=== PATIENT | female | born 1935 | race African-American/Black ===

== ENCOUNTER 2016-10-06 13:31 | Observation (INO) | payer MEDICARE, MEDICAID ==
[~2016-10-06] VITALS: Ht 162.6 cm; Wt 93.8 kg
[~2016-10-06 13:31] MED LIST: ASPI1TAB69 PO; GABA300C5 PO; HYDR-3583 PO; HYDR25TA5 PO; LEVO75TA3 PO; LORA-361 PO; MECL-62 PO; OXYC1TAB63 PO; PROM1SUP9 RECTAL; SIMV40TA PO; VERA1TAB17 PO
[2016-10-06 13:32] VITALS: BP 197/90; PULSE 100; RESP 20; TEMP 97.5; O2SAT 95
--- NOTE | 2016-10-06 14:35 | PD ---
HPI Chief Complaint: GI Complaint Time Seen by Provider: 14:35 Travel History International Travel<30 days: No Contact w/Intl Traveler<30days: No Traveled to known affect area: No History of Present Illness HPI 81-year-old female with history of CAD, hypertension, GERD, diverticulitis, hernia repair, cholecystectomy, appendectomy, presents to emergency department today for evaluation of lukasz red diarrhea. Patient states it has been ongoing for the last 2 days. Patient has no history of colon cancer. Reports no significant pain. Has been nauseous without vomiting. No fever or chills. No chest pain or tightness. She has had mild shortness of breath. She has no other symptoms to report at this time. PFSH Past Medical History Hx Anticoagulant Therapy: Yes (ASA 81MG) Arthritis: Yes Asthma: Yes Blood Disorders: No Depression: Yes Heart Rhythm Problems: Yes (OCCASIONAL FAST HEART-RATE) Cancer: No Cardiac Catheterization: Yes Cardiovascular Problems: Yes High Cholesterol: Yes Chest Pain: Yes Diabetes: No Diminished Hearing: No Diverticulitis: Yes Endocrine: No Gastrointestinal Disorders: Yes GERD: Yes Genitourinary: No Headaches: Yes Hepatitis: No Hiatal Hernia: Yes (HX ) Hypertension: Yes Immune Disorder: No Musculoskeletal: Yes (OA) Neurologic: Yes (HAND TREMORS AT TIMES) Psychiatric: No Reproductive: No Respiratory: Yes (ASTHMA) Immunizations Current: No Thyroid Disease: Yes (LOW) Menopausal: Yes : 10 Past Surgical History Abdominal Surgery: Yes (HERNIA REPAIR X5, CHOLECYSTECTOMY) AICD: No Appendectomy: Yes Arteriovenous Shunt: No Cardiac Surgery: Yes (CARDIAC CATH) Cholecystectomy: Yes Ear Surgery: No Endocrine Surgery: No Eye Surgery: No Gynecologic Surgery: Yes (HYSTERECTOMY) Hysterectomy: Yes Insulin Pump: No Joint Replacement: No Oral Surgery: No Pacemaker: No Thoracic Surgery: No Other Surgery: Yes ("HERNIA REPAIR" AND FISTULA REPAIR 1968) Social History Alcohol Use: No Tobacco Use: No Substance Use: No Allergies-Medications (Allergen,Severity, Reaction): Coded Allergies: Contrast Media (Verified Allergy, Unknown, 10/06/16) STATES "FEELS HOT" Reported Meds & Prescriptions Reported Meds & Active Scripts Active Oxycodone-Acetaminophen 5-325 mg Tab 1 Tab PO Q4H PRN Reported Verapamil ER 24 HR (Verapamil HCl) 240 Mg Tab 240 Mg PO BID Simvastatin 40 Mg Tab 40 Mg PO HS Promethazine Supp (Promethazine HCl) 25 Mg Supp 25 Mg RECTAL DAILY PRN Meclizine (Meclizine HCl) 25 Mg Tab 25 Mg PO BID PRN Claritin (Loratadine) 10 Mg Tab 10 Mg PO DAILY Levothyroxine (Levothyroxine Sodium) 75 Mcg Tab 75 Mcg PO DAILY Hydrocodone-Acetaminophen 10-325 mg Tab 0.5-1 Tab PO Q4H PRN Hydrochlorothiazide 25 Mg Tab 25 Mg PO DAILY Gabapentin 300 Mg Cap 300 Mg PO TID Aspirin 81 Mg Tabdr 81 Mg PO DAILY Review of Systems Except as stated in HPI: all other systems reviewed are Neg Physical Exam Narrative GENERAL: Well-nourished elderly female patient, in no acute distress SKIN: Warm and dry. HEAD: Atraumatic. Normocephalic. EYES: Pupils equal and round. No scleral icterus. No injection or drainage. ENT: No nasal bleeding or discharge. Mucous membranes pink and moist. NECK: Trachea midline. No JVD. CARDIOVASCULAR: Regular rate and rhythm. No murmur appreciated. RESPIRATORY: No accessory muscle use. Diminished to auscultation. Breath sounds equal bilaterally. GASTROINTESTINAL: Abdomen soft, nondistended. Mild discomfort with palpation. Hepatic and splenic margins not palpable. MUSCULOSKELETAL: No obvious deformities. No clubbing. No cyanosis. No edema. NEUROLOGICAL: Awake and alert. No obvious cranial nerve deficits. Motor grossly within normal limits. Normal speech. PSYCHIATRIC: Appropriate mood and affect; insight and judgment normal. Data Data Last Documented VS Vital Signs Date Time Temp Pulse Resp B/P Pulse Ox O2 Delivery O2 Flow Rate FiO2 10/06/16 23:00 85 16 150/65 98 Room Air 10/06/16 13:32 97.5 Orders Complete Blood Count With Diff (10/06/16 14:34) Comprehensive Metabolic Panel (10/06/16 14:34) Prothrombin Time / Inr (Pt) (10/06/16 14:34) Act Partial Throm Time (Ptt) (10/06/16 14:34) Urinalysis - C+S If Indicated (10/06/16 14:34) Type And Screen (10/06/16 14:34) Electrocardiogram (10/06/16 ) Ct Abd/Pel W/O Iv Contrast (10/06/16 ) C Diff Toxin Pcr (10/06/16 21:10) Consult Vascular Access Team (10/06/16 ) Sodium Chlor 0.9% 1000 Ml Inj (Ns 1000 M (10/06/16 21:47) Peg (High)/E-Lyte Liq (Colyte Liq) (10/06/16 23:00) Pantoprazole Inj (Protonix Inj) (10/07/16 00:15) Pantoprazole Inj (Protonix Inj) (10/07/16 00:15) Admit Order (Ed Use Only) (10/06/16 23:06) Labs Laboratory Tests Test 10/06/16 10/06/16 14:25 15:00 White Blood Count 7.3 TH/MM3 Red Blood Count 3.33 MIL/MM3 Hemoglobin 9.2 GM/DL Hematocrit 28.7 % Mean Corpuscular Volume 86.1 FL Mean Corpuscular Hemoglobin 27.7 PG Mean Corpuscular Hemoglobin 32.2 % Concent Red Cell Distribution Width 17.6 % Platelet Count 527 TH/MM3 Mean Platelet Volume 7.2 FL Neutrophils (%) (Auto) 63.8 % Lymphocytes (%) (Auto) 27.9 % Monocytes (%) (Auto) 4.8 % Eosinophils (%) (Auto) 3.1 % Basophils (%) (Auto) 0.4 % Neutrophils # (Auto) 4.7 TH/MM3 Lymphocytes # (Auto) 2.0 TH/MM3 Monocytes # (Auto) 0.3 TH/MM3 Eosinophils # (Auto) 0.2 TH/MM3 Basophils # (Auto) 0.0 TH/MM3 CBC Comment DIFF FINAL Differential Comment Prothrombin Time 11.8 SEC Prothromb Time International 1.1 RATIO Ratio Activated Partial 24.6 SEC Thromboplast Time Sodium Level 143 MEQ/L Potassium Level 4.2 MEQ/L Chloride Level 106 MEQ/L Carbon Dioxide Level 31.4 MEQ/L Anion Gap 6 MEQ/L Blood Urea Nitrogen 24 MG/DL Creatinine 1.09 MG/DL Estimat Glomerular Filtration 58 ML/MIN Rate Random Glucose 89 MG/DL Calcium Level 9.1 MG/DL Total Bilirubin 0.3 MG/DL Aspartate Amino Transf 9 U/L (AST/SGOT) Alanine Aminotransferase 12 U/L (ALT/SGPT) Alkaline Phosphatase 146 U/L Total Protein 7.9 GM/DL Albumin 3.0 GM/DL Blood Type O POSITIVE Antibody Screen NEGATIVE Blood Bank Comment Urine Color YELLOW Urine Turbidity CLEAR Urine pH 5.5 Urine Specific [place] 1.019 Urine Protein TRACE mg/dL Urine Glucose (UA) NEG mg/dL Urine Ketones NEG mg/dL Urine Occult Blood NEG Urine Nitrite NEG Urine Bilirubin NEG Urine Urobilinogen LESS THAN 2.0 MG/DL Urine Leukocyte Esterase NEG Urine RBC 2 /hpf Urine WBC 1 /hpf Urine Squamous Epithelial 1 /hpf Cells Microscopic Urinalysis Comment CULT NOT INDICATED MDM Medical Decision Making Medical Screen Exam Complete: Yes Emergency Medical Condition: Yes Medical Record Reviewed: Yes Differential Diagnosis GI bleed versus hemorrhoids versus symptomatic anemia versus electrode abnormality Narrative Course 81-year-old female presents to the emergency department for evaluation. Workup was initiated in triage. Once a medical bed becomes available, patient will be transferred and care assumed by that provider. Condition: Stable Oriana Bhat Oct 06, 2016 14:35
[2016-10-06 15:04] LABS: AUTOMATED NEUTROPHIL # 4.7 TH/MM3 (1.8-7.7); BASOPHIL % 0.4 % (0.0-2.0); EOSINOPHIL # 0.2 TH/MM3 (0-0.4); EOSINOPHIL % 3.1 % (0.0-4.0); HEMATOCRIT 28.7 % (35.0-46.0); HEMO FLAGS DIFF FINAL; LYMPH % 27.9 % (9.0-44.0); MEAN CELL VOLUME 86.1 FL (80.0-100.0); MEAN CORPUSCULAR HEMOGLOBIN 27.7 PG (27.0-34.0); MEAN CORPUSCULAR HGB CONC 32.2 % (32.0-36.0); MONO % 4.8 % (0.0-8.0); NEUT % 63.8 % (16.0-70.0); PLATELET COUNT 527 TH/MM3 (150-450); RED BLOOD COUNT 3.33 MIL/MM3 (4.00-5.30); RED CELL DISTRIBUTION WIDTH 17.6 % (11.6-17.2); WHITE BLOOD COUNT 7.3 TH/MM3 (4.0-11.0)
[2016-10-06 15:09] LABS: APTT (PATIENT) 24.6 SEC (24.3-30.1); INTERNATIONAL NORMALIZED RATIO 1.1 RATIO; PROTHROMBIN TIME - PATIENT 11.8 SEC (9.8-11.6)
[2016-10-06 15:20] LABS: BLOOD, URINE NEG (NEG); GLUCOSE,URINE NEG (NEG); KETONE, URINE NEG (NEG); NITRITE,URINE NEG (NEG); PH, URINE 5.5 (5.0-8.5); SQUAMOUS EPITHELIAL CELL URINE 1 /hpf (0-5); URINE COLOR YELLOW (YELLW/STRAW)
[2016-10-06 15:21] LABS: ALT (GPT) 12 U/L (10-53); ANION GAP 6 MEQ/L (5-15); AST (GOT) 9 U/L (15-37); BICARBONATE 31.4 MEQ/L (21.0-32.0); BLOOD UREA NITROGEN 24 MG/DL (7-18); CHLORIDE 106 MEQ/L (98-107); GLOMERULAR FILTRATION RATE 58 ML/MIN (>89); POTASSIUM 4.2 MEQ/L (3.5-5.1); SODIUM (NA) 143 MEQ/L (136-145)
[2016-10-06 15:22] LABS: COMMENT (UR) CULT NOT INDICATED; CULTURE IF INDICATED CULT NOT INDICATED
[2016-10-06 15:23] LABS: ALKALINE PHOSPHATASE 146 U/L (45-117); TOTAL BILIRUBIN ADULT 0.3 MG/DL (0.2-1.0)
[2016-10-06] MEDS ORDERED: SODIUM CHLOR 0.9% 1000 ML INJ 1,000 ML IV SCH (21:47)
--- NOTE | 2016-10-06 22:11 | RADRPT ---
EXAM DATE/TIME: 10/06/2016 21:48 [facility] COMPARISON: No previous studies available for comparison. INDICATIONS : Rectal bleeding, abdominal pain, nausea and vomiting. ORAL CONTRAST: No oral contrast ingested. RADIATION DOSE: 16.77 CTDIvol (mGy) MEDICAL HISTORY : Cardiovascular disease. Hypercholesterolemia. Hypertension. SURGICAL HISTORY : Hysterectomy. Cholecystectomy.Mulriple hernia repairs. ENCOUNTER: Initial ACUITY: 1 day PAIN SCALE: 5/10 LOCATION: Bilateral lower quadrant TECHNIQUE: Volumetric scanning of the abdomen and pelvis was performed. Using automated exposure control and ad justment of the mA and/or kV according to patient size, radiation dose was kept as low as reasonably achievable to obtain optimal diagnostic quality images. FINDINGS: CT Abdomen: The liver, spleen, pancreas, kidneys, adrenals are unremarkable. There is no evidence for any appreciable pathological adenopathy, free fluid, or bowel obstruction. Chronic vascular calcifi cations are present involving the aorta, iliac arteries without any significant stenosis or aneurysma l dilatations for technique. There are degenerative changes and possible bulging discs in the lower l umbosacral spine not adequately characterized. CT pelvis: There is no evidence for mass, abscess formation, or any significant adenopathy within the pelvis. There are scattered diverticuli mainly in the sigmoid colon without definite signs of divert iculitis. There is an approximate 2.4 cm bone island in the right sacrum with degenerative arthritis of the right SI joint. There is anterior abdominal mesh with approximate 3.2 cm soft tissue density i n the subcutaneous tissues of the left lower anterolateral abdominal wall with inhomogeneous density extending down to the groin most likely chronic possibly scar. CONCLUSION: Inhomogeneous density in the subcutaneous tissues of the left abdominal wall adjacent to the surgical mesh probably area of scarring, however traumatic contusion is not excluded and gabrielu ld be correlated clinically. Jayden Fang MD on October 06, 2016 at 22:05 Board Certified Radiologist. This report was verified electronically.
--- NOTE | 2016-10-06 22:50 | PD ---
Physical Exam Date Seen by Provider: Oct 06, 2016 Time Seen by Provider: 22:37 Narrative 81-year-old female that presents to the ED for evaluation of rectal bleeding. Patient was primarily evaluated by Oriana PALMER please refer to her note. Patient states that a rectal exam was done prior. I perform a rectal exam with a female nurse present. Patient does appear to have a very old non-painful or bleeding external hemorrhoid on the 6:00 area. Rectal exam was done and it shows some blood. Hemoccult was positive. Data Data Last Documented VS Vital Signs Date Time Temp Pulse Resp B/P Pulse Ox O2 Delivery O2 Flow Rate FiO2 10/06/16 13:32 97.5 100 20 197/90 95 Room Air Orders Complete Blood Count With Diff (10/06/16 14:34) Comprehensive Metabolic Panel (10/06/16 14:34) Prothrombin Time / Inr (Pt) (10/06/16 14:34) Act Partial Throm Time (Ptt) (10/06/16 14:34) Urinalysis - C+S If Indicated (10/06/16 14:34) Type And Screen (10/06/16 14:34) Electrocardiogram (10/06/16 ) Ct Abd/Pel W/O Iv Contrast (10/06/16 ) C Diff Toxin Pcr (10/06/16 21:10) Consult Vascular Access Team (10/06/16 ) Sodium Chlor 0.9% 1000 Ml Inj (Ns 1000 M (10/06/16 21:47) Peg (High)/E-Lyte Liq (Colyte Liq) (10/06/16 23:00) Pantoprazole Inj (Protonix Inj) (10/07/16 00:15) Pantoprazole Inj (Protonix Inj) (10/07/16 00:15) Admit Order (Ed Use Only) (10/06/16 23:06) Labs Laboratory Tests Test 10/06/16 10/06/16 14:25 15:00 White Blood Count 7.3 TH/MM3 Red Blood Count 3.33 MIL/MM3 Hemoglobin 9.2 GM/DL Hematocrit 28.7 % Mean Corpuscular Volume 86.1 FL Mean Corpuscular Hemoglobin 27.7 PG Mean Corpuscular Hemoglobin 32.2 % Concent Red Cell Distribution Width 17.6 % Platelet Count 527 TH/MM3 Mean Platelet Volume 7.2 FL Neutrophils (%) (Auto) 63.8 % Lymphocytes (%) (Auto) 27.9 % Monocytes (%) (Auto) 4.8 % Eosinophils (%) (Auto) 3.1 % Basophils (%) (Auto) 0.4 % Neutrophils # (Auto) 4.7 TH/MM3 Lymphocytes # (Auto) 2.0 TH/MM3 Monocytes # (Auto) 0.3 TH/MM3 Eosinophils # (Auto) 0.2 TH/MM3 Basophils # (Auto) 0.0 TH/MM3 CBC Comment DIFF FINAL Differential Comment Prothrombin Time 11.8 SEC Prothromb Time International 1.1 RATIO Ratio Activated Partial 24.6 SEC Thromboplast Time Sodium Level 143 MEQ/L Potassium Level 4.2 MEQ/L Chloride Level 106 MEQ/L Carbon Dioxide Level 31.4 MEQ/L Anion Gap 6 MEQ/L Blood Urea Nitrogen 24 MG/DL Creatinine 1.09 MG/DL Estimat Glomerular Filtration 58 ML/MIN Rate Random Glucose 89 MG/DL Calcium Level 9.1 MG/DL Total Bilirubin 0.3 MG/DL Aspartate Amino Transf 9 U/L (AST/SGOT) Alanine Aminotransferase 12 U/L (ALT/SGPT) Alkaline Phosphatase 146 U/L Total Protein 7.9 GM/DL Albumin 3.0 GM/DL Blood Type O POSITIVE Antibody Screen NEGATIVE Blood Bank Comment Urine Color YELLOW Urine Turbidity CLEAR Urine pH 5.5 Urine Specific [place] 1.019 Urine Protein TRACE mg/dL Urine Glucose (UA) NEG mg/dL Urine Ketones NEG mg/dL Urine Occult Blood NEG Urine Nitrite NEG Urine Bilirubin NEG Urine Urobilinogen LESS THAN 2.0 MG/DL Urine Leukocyte Esterase NEG Urine RBC 2 /hpf Urine WBC 1 /hpf Urine Squamous Epithelial 1 /hpf Cells Microscopic Urinalysis Comment CULT NOT INDICATED [facility] Medical Record Reviewed: Yes Supervised Visit with KAMLA: No Interpretation(s) CBC & BMP Diagram 10/06/16 14:25 LFTs within normal limits. Urine negative. Coags negative Differential Diagnosis Rectal bleeding versus hemorrhoid versus active bleed versus diverticulitis Narrative Course 81-year-old female that presents to the ED for evaluation of rectal bleeding. Patient was properly examined and was found to have signs and symptoms consistent with appears to be rectal bleeding. Patient has a positive Hemoccult as well as lukasz blood noted on the rectal exam. Labs were essentially shown to have anemia and a positive Hemoccult. At this time I recommend imaging. Imaging did not show any sign of acute disease other than possible mass to the area of the hernia which appears to be likely scar tissue. At this time I do recommend admission. I spoke with Dr. Candelario who recommends starting patient on GoLYTELY and nothing by mouth after 4-5:00 am this morning for colonoscopy. Wants colonoscopy consents done. Dr. Larson agrees to admission. Diagnosis Primary Impression: GI bleed Qualified Code: K92.2 - Gastrointestinal hemorrhage, unspecified gastrointestinal hemorrhage type Admitting Information Admitting Physician Requests: Admit Condition: Stable Hai Whitley Oct 06, 2016 22:50
[2016-10-06 23:00] VITALS: BP 150/65; PULSE 85; RESP 16; O2SAT 98
[2016-10-06] MEDS ORDERED: PEG (High)/E-LYTE SOLN 4000 ML BTL PO ONE (23:00)
[2016-10-06] MEDS ORDERED: ACETAMINOPHEN/HYDROcodone 325 MG/10 MG TAB PO PRN (23:15)
[2016-10-06] MEDS ORDERED: MORPHINE SULFATE 8 MG/ML INJ IV PUSH PRN (23:30)
[2016-10-06] MEDS ORDERED: ENALAPRILAT 2.5 MG/2 ML VIAL IV PUSH PRN (23:30)
[2016-10-06] MEDS ORDERED: ONDANSETRON HCL 4 MG/2 ML VIAL IVP PRN (23:30)
[2016-10-06] MEDS ORDERED: SENNOSIDES 8.6 MG TAB PO PRN (23:30)
[2016-10-06] MEDS ORDERED: BISACODYL 10 MG SUPP PR PRN (23:30)
[2016-10-06] MEDS ORDERED: NALOXONE HCL 0.4 MG/ML AMP IV PRN (23:30)
[2016-10-06] MEDS ORDERED: ACETAMINOPHEN 325 MG TAB PO PRN (23:30)
[2016-10-06] MEDS ORDERED: SODIUM CHLORIDE 0.9% FLUSH 5 ML FLUSH FLUSH PRN (23:30)
[2016-10-06] MEDS ORDERED: cloNIDine HCL 0.1 MG TAB PO PRN (23:30)
[2016-10-06] MEDS ORDERED: PROCHLORPERAZINE 25 MG SUPP PR PRN (23:30)
[2016-10-06] MEDS ORDERED: PANTOPRAZOLE INJ 80 MG in SODIUM CHLORIDE 0.9% INJ 100 ML IV SCH (23:45)
[2016-10-07] MEDS ORDERED: PANTOPRAZOLE INJ 80 MG in SODIUM CHLORIDE 0.9% INJ 100 ML IV SCH (00:15)
[2016-10-07] MEDS ORDERED: PANTOPRAZOLE INJ 80 MG in SODIUM CHLORIDE 0.9% INJ 35 ML IV ONE (00:15)
[2016-10-07] MEDS: DEXT 5%-NACL 0.9% 1000 ML INJ 1,000 ML IV SCH ×2 (00:43→22:45)
[2016-10-07 02:00] VITALS: BP 145/77
[2016-10-07 03:00] VITALS: BP 168/79; PULSE 75; RESP 20; TEMP 97.5; O2SAT 100
[2016-10-07] MEDS ORDERED: MAGNESIUM CITRATE SOLN 300 ML BTL PO SCH (03:00)
[2016-10-07] MEDS: LEVOTHYROXINE SODIUM 75 MCG TAB PO SCH (04:14)
[2016-10-07] MEDS ORDERED: MAGNESIUM CITRATE SOLN 300 ML BTL PO ONE (05:00)
[2016-10-07 06:54] LABS: AUTOMATED NEUTROPHIL # 5.4 TH/MM3 (1.8-7.7); BASOPHIL % 0.4 % (0.0-2.0); EOSINOPHIL # 0.2 TH/MM3 (0-0.4); EOSINOPHIL % 2.8 % (0.0-4.0); HEMATOCRIT 26.2 % (35.0-46.0); HEMO FLAGS DIFF FINAL; LYMPH % 22.4 % (9.0-44.0); LYMPHOCYTE # 1.7 TH/MM3 (1.0-4.8); MEAN CELL VOLUME 86.6 FL (80.0-100.0); MEAN CORPUSCULAR HEMOGLOBIN 27.7 PG (27.0-34.0); MONO % 5.3 % (0.0-8.0); NEUT % 69.1 % (16.0-70.0); PLATELET COUNT 500 TH/MM3 (150-450); RED BLOOD COUNT 3.03 MIL/MM3 (4.00-5.30); RED CELL DISTRIBUTION WIDTH 17.6 % (11.6-17.2); WHITE BLOOD COUNT 7.8 TH/MM3 (4.0-11.0)
[2016-10-07 07:08] LABS: BICARBONATE 27.4 MEQ/L (21.0-32.0); POTASSIUM 3.5 MEQ/L (3.5-5.1)
[2016-10-07 08:00] VITALS: BP 156/85; PULSE 95; RESP 16; TEMP 98.2; O2SAT 98
[2016-10-07] MEDS: GABAPENTIN 300 MG CAP PO SCH ×3 (09:00→18:00)
--- NOTE | 2016-10-07 09:01 | PD.CONS ---
HPI History of Present Illness This is a 81 year old female with history of CAD, hypertension, GERD, diverticulitis, hernia repair, cholecystectomy, appendectomy, presents to emergency department today for evaluation of lukasz red diarrhea. Patient states Monday morning, she didn't feel very good and felt constipated, so she took miralax, on Monday, she felt cramps and thought the laxatives working, but she noticed diarrhea with gross blood and clots, she had few more bloody loose stools that day, then she had bloody stools on Monday and and she noticed increasing the amount of blood with every BM. She reports chronic nausea without vomiting. She has chronic GERD which is controlled with medication. No previous history of rectal bleeding. She is on Aspirin at home. States she had a f/u with PCP on Monday and told her to stop taking the pain medication due to constipation, she did that and took 2 Aleve that day. Of note , she had EGD/colonoscopy with dr. Valdovinos on (06/21/16)-----> diverticulosis, grade I hemorrhoids, external hemorrhoids, gastritis, esophagitis, bx revealed gastritis and esophagitis. She denies alcohol intake. CT showed Inhomogeneous density in the subcutaneous tissues of the left abdominal wall adjacent to the surgical mesh probably area of scarring, however traumatic contusion is not excluded and should be correlated clinically. hgb 9.2 yesterday, today is 8.4. Currently patient is drinking mag-citrate in preparation for colonoscopy today, and this is making her nauseous. (Maggie Mclaughlin) PFSH Past Medical History Asthma HTN GERD Diverticulitis Past Surgical History Hysterectomy Multiple hernia repair cholecystectomy cardiac cath EGD/colonoscopy (Maggie Mclaughlin) Coded Allergies: Contrast Media (Verified Allergy, Unknown, 10/06/16) STATES "FEELS HOT" Medications Current Medications Medications (Trade) Dose Ordered Sig/Saroj Route Start Time Stop Time Status Last Admin (Neurontin) 300 mg TID PO 10/07/16 09:00 (Hydrodiuril) 25 mg DAILY PO 10/07/16 09:00 ([place] 10-325 Mg) 1 tab Q4H PRN PO 10/06/16 23:15 (Synthroid) 75 mcg DAILY@06 PO 10/07/16 06:00 (Isoptin Sr) 240 mg BID PO 10/07/16 09:00 (NS Flush) 2 ml UNSCH PRN FLUSH 10/06/16 23:30 (NS Flush) 2 ml BID FLUSH 10/07/16 09:00 (Tylenol) 650 mg Q4H PRN PO 10/06/16 23:30 (Zofran Inj) 4 mg Q6H PRN IVP 10/06/16 23:30 10/07/16 05:07 (Compazine Supp) 25 mg Q12H PRN SD 10/06/16 23:30 (Dulcolax Supp) 10 mg DAILY PRN SD 10/06/16 23:30 (Senokot) 17.2 mg Q12H PRN PO 10/06/16 23:30 (Narcan Inj) 0.4 mg UNSCH PRN IV 10/06/16 23:30 Clonidine 0.1 mg 0.1 mg Q6H PRN PO 10/06/16 23:30 (D5W-NS 1000 ml Inj) 1,000 ml @ 42 mls/hr [id number] IV 10/06/16 23:30 10/07/16 00:43 (Vasotec Inj) 2.5 mg Q6H PRN IV PUSH 10/06/16 23:30 (Morphine Inj) 5 mg Q4H PRN IV PUSH 10/06/16 23:30 Pantoprazole Sodium 40 mg 40 mg Q12HR IV PUSH 10/07/16 09:00 (Protonix Inj/NS Inj) 100 ml @ 10 mls/hr Q10H IV 10/06/16 23:45 10/07/16 09:00 10/07/16 00:43 Family History No family history of colon cancer Social History No smoking No alcohol (Maggie Mclaughlin) Review of Systems Constitutional: COMPLAINS OF: Fatigue Endocrine: DENIES: Polyuria Eyes: DENIES: Double Vision Ears, nose, mouth, throat: DENIES: Hoarseness Respiratory: DENIES: Shortness of breath Cardiovascular: DENIES: Syncope Gastrointestinal: COMPLAINS OF: Abdominal pain, Bloody stools, Constipation, Diarrhea, Nausea, Anorexia, DENIES: Black stools, Vomiting, Difficulty Swallowing, Odynophagia, Swelling of Abdomen, Heartburn, Hematemesis Genitourinary: DENIES: Hematuria Musculoskeletal: DENIES: Back pain Integumentary: DENIES: Jaundice Hematologic/lymphatic: DENIES: Bruising Immunologic/allergic: DENIES: Eczema Neurologic: DENIES: Abnormal gait Psychiatric: DENIES: Anxiety (Maggie Mclaughlin ESTELA) GI Exam Vitals I&O Vital Signs Date Time Temp Pulse Resp B/P Pulse Ox O2 Delivery O2 Flow Rate FiO2 10/07/16 03:00 97.5 75 20 168/79 100 10/07/16 02:00 80 16 145/77 99 10/06/16 23:00 85 16 150/65 98 Room Air 10/06/16 13:32 97.5 100 20 197/90 95 Room Air I/O 10/06/16 10/06/16 10/06/16 10/07/16 10/07/16 10/07/16 07:00 15:00 23:00 07:00 15:00 23:00 Intake Total 0 ml Balance 0 ml Intake Oral 0 ml # Voids 2 # Bowel Movements 2 Imaging Last Impressions Abdomen/Pelvis CT 10/06/16 0000 Signed Impressions: Service Date/Time: October 21:48 - CONCLUSION: Inhomogeneous density in the subcutaneous tissues of the left abdominal wall adjacent to the surgical mesh probably area of scarring, however traumatic contusion is not excluded and should be correlated clinically. Jayden Fang MD Laboratory Test 10/06/16 10/06/16 10/07/16 14:25 15:00 06:20 White Blood Count 7.3 TH/MM3 7.8 TH/MM3 Red Blood Count 3.33 MIL/MM3 3.03 MIL/MM3 Hemoglobin 9.2 GM/DL 8.4 GM/DL Hematocrit 28.7 % 26.2 % Mean Corpuscular Volume 86.1 FL 86.6 FL Mean Corpuscular Hemoglobin 27.7 PG 27.7 PG Mean Corpuscular Hemoglobin 32.2 % 32.0 % Concent Red Cell Distribution Width 17.6 % 17.6 % Platelet Count 527 TH/MM3 500 TH/MM3 Mean Platelet Volume 7.2 FL 6.9 FL Neutrophils (%) (Auto) 63.8 % 69.1 % Lymphocytes (%) (Auto) 27.9 % 22.4 % Monocytes (%) (Auto) 4.8 % 5.3 % Eosinophils (%) (Auto) 3.1 % 2.8 % Basophils (%) (Auto) 0.4 % 0.4 % Neutrophils # (Auto) 4.7 TH/MM3 5.4 TH/MM3 Lymphocytes # (Auto) 2.0 TH/MM3 1.7 TH/MM3 Monocytes # (Auto) 0.3 TH/MM3 0.4 TH/MM3 Eosinophils # (Auto) 0.2 TH/MM3 0.2 TH/MM3 Basophils # (Auto) 0.0 TH/MM3 0.0 TH/MM3 CBC Comment DIFF FINAL DIFF FINAL Differential Comment Prothrombin Time 11.8 SEC Prothromb Time International 1.1 RATIO Ratio Activated Partial 24.6 SEC Thromboplast Time Sodium Level 143 MEQ/L 143 MEQ/L Potassium Level 4.2 MEQ/L 3.5 MEQ/L Chloride Level 106 MEQ/L 109 MEQ/L Carbon Dioxide Level 31.4 MEQ/L 27.4 MEQ/L Anion Gap 6 MEQ/L 7 MEQ/L Blood Urea Nitrogen 24 MG/DL 20 MG/DL Creatinine 1.09 MG/DL 1.10 MG/DL Estimat Glomerular Filtration 58 ML/MIN 58 ML/MIN Rate Random Glucose 89 MG/DL 100 MG/DL Calcium Level 9.1 MG/DL 8.8 MG/DL Total Bilirubin 0.3 MG/DL Aspartate Amino Transf 9 U/L (AST/SGOT) Alanine Aminotransferase 12 U/L (ALT/SGPT) Alkaline Phosphatase 146 U/L Total Protein 7.9 GM/DL Albumin 3.0 GM/DL Blood Type O POSITIVE Antibody Screen NEGATIVE Blood Bank Comment Urine Color YELLOW Urine Turbidity CLEAR Urine pH 5.5 Urine Specific [place] 1.019 Urine Protein TRACE mg/dL Urine Glucose (UA) NEG mg/dL Urine Ketones NEG mg/dL Urine Occult Blood NEG Urine Nitrite NEG Urine Bilirubin NEG Urine Urobilinogen LESS THAN 2.0 MG/DL Urine Leukocyte Esterase NEG Urine RBC 2 /hpf Urine WBC 1 /hpf Urine Squamous Epithelial 1 /hpf Cells Microscopic Urinalysis Comment CULT NOT INDICATED Physical Examination HEENT: normocephalic; atraumatic; no jaundice. NECK: Neck is supple, no JVD, no lymphadenopathy. CHEST: Chest is clear to auscultation and percussion. CARDIAC: Regular rate and rhythm with no murmur gallop or rubs. ABDOMEN: Soft, nondistended, nontender; no hepatosplenomegaly; bowel sounds are present in all four quadrants. EXTREMITIES: No clubbing, cyanosis, or edema. SKIN: Normal; no rash; no jaundice. 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 (Maggie Mclaughlin) Assessment and Plan Plan - Gross bloody stools/anemia- Patient states Monday morning, she didn't feel very good and felt constipated, so she took miralax, on Monday, she felt cramps and thought the laxatives working, but she noticed diarrhea with gross blood and clots, she had few more bloody loose stools that day, then she had bloody stools on Monday and and she noticed increasing the amount of blood with every BM. She reports chronic nausea without vomiting. No previous history of rectal bleeding. She is on Aspirin at home. States she had a f/u with PCP on Monday and told her to stop taking the pain medication due to constipation, she did that and took 2 Aleve that day. Of note, she had EGD/ colonoscopy with dr. Valdovinos on (06/21/16)-----> diverticulosis, grade I hemorrhoids, external hemorrhoids, gastritis, esophagitis, bx revealed gastritis and esophagitis. She denies alcohol intake. CT showed Inhomogeneous density in the subcutaneous tissues of the left abdominal wall adjacent to the surgical mesh probably area of scarring, however traumatic contusion is not excluded and should be correlated clinically. hgb 9.2 yesterday, today is 8.4. Currently patient is drinking mag-citrate in preparation for colonoscopy today, and this is making her nauseous. - Anemia- due to acute blood loss- hgb 9.2 yesterday, today is 8.4. - chronic GERD which is controlled with medication. - HTN, Asthma per attending Plan: - NPO - Colonoscopy today - She is finishing up Mag-citrate - Consents - Await stools studies results - Monitor hh - Transfuse as needed - PPI - Supportive care - Patient seen and examined by Dr. Malik and myself and this note is written on his behalf. (Maggie Mclaughlin) Physician Comments Patient seen and examined Agree with above Continue with current supportive care Monitor labs We will proceed with a colonoscopy next (Paddy Malik MD) Maggie Mclaughlin Oct 07, 2016 09:01 Paddy Malik MD Oct 07, 2016 12:30
--- NOTE | 2016-10-07 09:17 | HHI.HP ---
History of Present Illness Primary Care Physician Joe Larson MD Admission Diagnosis GI bleed Diagnoses: (1) Fatigue (2) GI bleed History of Present Illness 81 y AAF, NEW PT TO MY PRACTICE THIS WEEK. PT IN USUALY STATE OF HEALTH UNTIL BRBPR FOR SEVERAL DAYS. PT SON CONVINCED HER TO GO TO THE ER. PT W CONTINUAL BLEED. NPO NOW. TAKING MAG CITRATE. C/O GENERAL WEAKNESS AND BEING FEARFUL OF THE SITUATION. D/W RN. D/W ER PA. Review of Systems Constitutional: COMPLAINS OF: Fatigue Gastrointestinal: COMPLAINS OF: Bloody stools, Nausea Except as stated in HPI: all other systems reviewed are Neg Past Family Social History Allergies: Coded Allergies: Contrast Media (Verified Allergy, Unknown, 10/06/16) STATES "FEELS HOT" Past Medical History Past Medical History Hx Anticoagulant Therapy: Yes (ASA 81MG) Arthritis: Yes Asthma: Yes Blood Disorders: No Depression: Yes Heart Rhythm Problems: Yes (OCCASIONAL FAST HEART-RATE) Cancer: No Cardiac Catheterization: Yes Cardiovascular Problems: Yes High Cholesterol: Yes Chest Pain: Yes Diabetes: No Diminished Hearing: No Diverticulitis: Yes Endocrine: No Gastrointestinal Disorders: Yes GERD: Yes Genitourinary: No Headaches: Yes Hepatitis: No Hiatal Hernia: Yes (HX ) Hypertension: Yes Immune Disorder: No Musculoskeletal: Yes (OA) Neurologic: Yes (HAND TREMORS AT TIMES) Psychiatric: No Reproductive: No Respiratory: Yes (ASTHMA) Immunizations Current: No Thyroid Disease: Yes (LOW) Menopausal: Yes : 10 Past Surgical History Abdominal Surgery: Yes (HERNIA REPAIR X5, CHOLECYSTECTOMY) AICD: No Appendectomy: Yes Arteriovenous Shunt: No Cardiac Surgery: Yes (CARDIAC CATH) Cholecystectomy: Yes Ear Surgery: No Endocrine Surgery: No Eye Surgery: No Gynecologic Surgery: Yes (HYSTERECTOMY) Hysterectomy: Yes Insulin Pump: No Joint Replacement: No Oral Surgery: No Pacemaker: No Thoracic Surgery: No Other Surgery: Yes ("HERNIA REPAIR" AND FISTULA REPAIR 1968) Social History Alcohol Use: No Tobacco Use: No Substance Use: No Allergies-Medications Allergies-Medications (Allergen,Severity, Reaction): Coded Allergies: Contrast Media (Verified Allergy, Unknown, 10/06/16) STATES "FEELS HOT" Reported Meds & Prescriptions Reported Meds & Active Scripts Active Oxycodone-Acetaminophen 5-325 mg Tab 1 Tab PO Q4H PRN Reported Verapamil ER 24 HR (Verapamil HCl) 240 Mg Tab 240 Mg PO BID Simvastatin 40 Mg Tab 40 Mg PO HS Promethazine Supp (Promethazine HCl) 25 Mg Supp 25 Mg RECTAL DAILY PRN Meclizine (Meclizine HCl) 25 Mg Tab 25 Mg PO BID PRN Claritin (Loratadine) 10 Mg Tab 10 Mg PO DAILY Levothyroxine (Levothyroxine Sodium) 75 Mcg Tab 75 Mcg PO DAILY Hydrocodone-Acetaminophen 10-325 mg Tab 0.5-1 Tab PO Q4H PRN Hydrochlorothiazide 25 Mg Tab 25 Mg PO DAILY Gabapentin 300 Mg Cap 300 Mg PO TID Aspirin 81 Mg Tabdr 81 Mg PO DAILY Active Ordered Medications Current Medications Medications (Trade) Dose Ordered Sig/Saroj Route Start Time Stop Time Status Last Admin (Neurontin) 300 mg TID PO 10/07/16 09:00 (Hydrodiuril) 25 mg DAILY PO 10/07/16 09:00 ([place] 10-325 Mg) 1 tab Q4H PRN PO 10/06/16 23:15 (Synthroid) 75 mcg DAILY@06 PO 10/07/16 06:00 (Isoptin Sr) 240 mg BID PO 10/07/16 09:00 (NS Flush) 2 ml UNSCH PRN FLUSH 10/06/16 23:30 (NS Flush) 2 ml BID FLUSH 10/07/16 09:00 (Tylenol) 650 mg Q4H PRN PO 10/06/16 23:30 (Zofran Inj) 4 mg Q6H PRN IVP 10/06/16 23:30 10/07/16 05:07 (Compazine Supp) 25 mg Q12H PRN DE 10/06/16 23:30 (Dulcolax Supp) 10 mg DAILY PRN DE 10/06/16 23:30 (Senokot) 17.2 mg Q12H PRN PO 10/06/16 23:30 (Narcan Inj) 0.4 mg UNSCH PRN IV 10/06/16 23:30 Clonidine 0.1 mg 0.1 mg Q6H PRN PO 10/06/16 23:30 (D5W-NS 1000 ml Inj) 1,000 ml @ 42 mls/hr [id number] IV 10/06/16 23:30 10/07/16 00:43 (Vasotec Inj) 2.5 mg Q6H PRN IV PUSH 10/06/16 23:30 (Morphine Inj) 5 mg Q4H PRN IV PUSH 10/06/16 23:30 (Protonix Inj) 40 mg Q12HR IV PUSH 10/07/16 09:00 Physical Exam Vital Signs Vital Signs Date Time Temp Pulse Resp B/P Pulse Ox O2 Delivery O2 Flow Rate FiO2 10/07/16 03:00 97.5 75 20 168/79 100 10/07/16 02:00 80 16 145/77 99 10/06/16 23:00 85 16 150/65 98 Room Air 10/06/16 13:32 97.5 100 20 197/90 95 Room Air Physical Exam GENERAL: This is a well-nourished, well-developed patient, in no apparent distress. SKIN: No rashes, ecchymoses or lesions. Cool and dry. HEAD: Atraumatic. Normocephalic. No temporal or scalp tenderness. EYES: Pupils equal round and reactive. Extraocular motions intact. No scleral icterus. No injection or drainage. ENT: Nose without bleeding, purulent drainage or septal hematoma. Throat without erythema, tonsillar hypertrophy or exudate. Uvula midline. Airway patent. NECK: Trachea midline. No JVD or lymphadenopathy. Supple, nontender, no meningeal signs. CARDIOVASCULAR: Regular rate and rhythm without murmurs, gallops, or rubs. RESPIRATORY: Clear to auscultation. Breath sounds equal bilaterally. No wheezes , rales, or rhonchi. GASTROINTESTINAL: Abdomen soft, non-tender, nondistended. No hepato-splenomegaly , or palpable masses. No guarding. MUSCULOSKELETAL: Extremities without clubbing, cyanosis, or edema. No joint tenderness, effusion, or edema noted. No calf tenderness. Negative Homans sign bilaterally. NEUROLOGICAL: Awake and alert. Cranial nerves II through XII intact. Motor and sensory grossly within normal limits. Five out of 5 muscle strength in all muscle groups. Normal speech. Laboratory Laboratory Tests Test 10/06/16 10/06/16 10/07/16 14:25 15:00 06:20 White Blood Count 7.3 7.8 Red Blood Count 3.33 3.03 Hemoglobin 9.2 8.4 Hematocrit 28.7 26.2 Mean Corpuscular Volume 86.1 86.6 Mean Corpuscular Hemoglobin 27.7 27.7 Mean Corpuscular Hemoglobin 32.2 32.0 Concent Red Cell Distribution Width 17.6 17.6 Platelet Count 527 500 Mean Platelet Volume 7.2 6.9 Neutrophils (%) (Auto) 63.8 69.1 Lymphocytes (%) (Auto) 27.9 22.4 Monocytes (%) (Auto) 4.8 5.3 Eosinophils (%) (Auto) 3.1 2.8 Basophils (%) (Auto) 0.4 0.4 Neutrophils # (Auto) 4.7 5.4 Lymphocytes # (Auto) 2.0 1.7 Monocytes # (Auto) 0.3 0.4 Eosinophils # (Auto) 0.2 0.2 Basophils # (Auto) 0.0 0.0 CBC Comment DIFF FINAL DIFF FINAL Differential Comment Prothrombin Time 11.8 Prothromb Time International 1.1 Ratio Activated Partial 24.6 Thromboplast Time Sodium Level 143 143 Potassium Level 4.2 3.5 Chloride Level 106 109 Carbon Dioxide Level 31.4 27.4 Anion Gap 6 7 Blood Urea Nitrogen 24 20 Creatinine 1.09 1.10 Estimat Glomerular Filtration 58 58 Rate Random Glucose 89 100 Calcium Level 9.1 8.8 Total Bilirubin 0.3 Aspartate Amino Transf 9 (AST/SGOT) Alanine Aminotransferase 12 (ALT/SGPT) Alkaline Phosphatase 146 Total Protein 7.9 Albumin 3.0 Blood Type O POSITIVE Antibody Screen NEGATIVE Blood Bank Comment Urine Color YELLOW Urine Turbidity CLEAR Urine pH 5.5 Urine Specific [place] 1.019 Urine Protein TRACE Urine Glucose (UA) NEG Urine Ketones NEG Urine Occult Blood NEG Urine Nitrite NEG Urine Bilirubin NEG Urine Urobilinogen LESS THAN 2.0 Urine Leukocyte Esterase NEG Urine RBC 2 Urine WBC 1 Urine Squamous Epithelial 1 Cells Microscopic Urinalysis Comment CULT NOT INDICATED Result Diagram: 10/07/16 0620 10/07/16 0620 Assessment and Plan Assessment and Plan GIB BLOOD LOSS ANEMIA GABRIELLE DEHYDRATION ELEVATED LFT'S HTN CAD ASTHMA HYPOTHYROID PLAN: IV PROTONIX NPO SCOPE TODAY NO NSAIDS OBS AM LABS Problem Qualifiers (1) GI bleed: Qualified Code: K92.2 - Gastrointestinal hemorrhage, unspecified gastrointestinal hemorrhage type Joe Larson MD Oct 07, 2016 09:17
[2016-10-07] MEDS: VERAPAMIL HCL 240 MG SUSTAINED RELEASE TAB PO SCH ×2 (09:26→20:48)
[2016-10-07] MEDS: PANTOPRAZOLE SODIUM 40 MG VIAL IV PUSH SCH ×2 (09:26→20:48)
[2016-10-07] MEDS: HYDROCHLOROTHIAZIDE 25 MG TAB PO SCH (09:26)
[2016-10-07] MEDS: SODIUM CHLORIDE 0.9% FLUSH 5 ML FLUSH FLUSH SCH ×2 (09:45→20:48)
[2016-10-07] MEDS ORDERED: SOD PHOSPHATE/SOD BIPHOSPHATE (ADULT) ENEMA 133ML PR ONE (10:45)
[2016-10-07 12:00] VITALS: BP 149/83; PULSE 96; RESP 16; TEMP 96.6; O2SAT 97
[2016-10-07] MEDS ORDERED: PROPOFOL 200 MG/20 ML AMP IV ONE (12:14)
--- NOTE | 2016-10-07 12:33 | PD.PROCEDR ---
GI Procedure REFERRING PHYSICIAN Dr. Larson PROCEDURE PERFORMED Colonoscopy INDICATION FOR PROCEDURE Rectal bleeding PROCEDURE: The procedure, risks and benefits were discussed with Ms. Levine and informed consent was obtained. Anesthesia sedated her with Diprivan. She was placed in the left lateral decubitus position. Colonoscopy: The Pentax videoscope was introduced through the rectum and advanced to cecum where the ileocecal valve and appendiceal orifice were identified. Retroflexion was performed in the rectum. Colonic prep was good FINDINGS: Colonic withdrawal time greater than 6 minutes As the scope slowly withdrawn colonic mucosa was carefully inspected the mucosa was unremarkable within normal limits the whole way through so as retroflexion and rectal examination the patient was noted to have moderately severe diverticulosis scattered throughout the colon but no blood or bleeding was seen ESTIMATED BLOOD LOSS: None SPECIMENS REMOVED: None COMPLICATIONS: None IMPRESSION: Diverticulosis throughout the colon Otherwise normal colonoscopy PLAN: Supportive care High fiber diet with fiber supplements and avoid nuts seeds and popcorn Advanced diet as tolerated we'll start with clears today Possible discharge tomorrow if all is stable and no further bleeding Paddy Malik MD Oct 07, 2016 12:33
[2016-10-07 16:00] VITALS: BP 139/80; PULSE 80; RESP 18; TEMP 97.8; O2SAT 98
[2016-10-07 21:06] VITALS: BP 135/68; PULSE 67; RESP 16; TEMP 96; O2SAT 100
--- NOTE | 2016-10-07 23:32 | EKG ---
Date Performed: 10/06/2016 Time Performed: 14:53:31 PTAGE: 81 years EKG: Sinus rhythm NORMAL ECG INTERPRETATION BASED ON A DEFAULT AGE OF 40 YEARS PREVIOUS TRACING : 07/21/2016 12.04 DOCTOR: Chidi Simpson Interpretating Date/Time 10/07/2016 23:29:42
[2016-10-08 01:01] VITALS: BP 119/58; PULSE 91; RESP 18; TEMP 97.5; O2SAT 95
[2016-10-08] MEDS: LEVOTHYROXINE SODIUM 75 MCG TAB PO SCH (05:10)
[2016-10-08 05:33] VITALS: BP 121/59; PULSE 76; RESP 18; TEMP 97.5; O2SAT 94
[2016-10-08 08:00] VITALS: BP 139/70; PULSE 81; RESP 16; TEMP 97.9; O2SAT 96
[2016-10-08 08:17] LABS: AUTOMATED NEUTROPHIL # 3.4 TH/MM3 (1.8-7.7); BASOPHIL % 0.3 % (0.0-2.0); EOSINOPHIL # 0.4 TH/MM3 (0-0.4); EOSINOPHIL % 7.1 % (0.0-4.0); HEMATOCRIT 24.4 % (35.0-46.0); HEMO FLAGS DIFF FINAL; LYMPH % 30.8 % (9.0-44.0); LYMPHOCYTE # 1.9 TH/MM3 (1.0-4.8); MEAN CORPUSCULAR HEMOGLOBIN 28.3 PG (27.0-34.0); MEAN CORPUSCULAR HGB CONC 32.9 % (32.0-36.0); MONO % 6.2 % (0.0-8.0); NEUT % 55.6 % (16.0-70.0); PLATELET COUNT 525 TH/MM3 (150-450); RED BLOOD COUNT 2.84 MIL/MM3 (4.00-5.30); RED CELL DISTRIBUTION WIDTH 17.5 % (11.6-17.2); WHITE BLOOD COUNT 6.2 TH/MM3 (4.0-11.0)
[2016-10-08 08:43] LABS: POTASSIUM 3.6 MEQ/L (3.5-5.1)
[2016-10-08] MEDS: PANTOPRAZOLE SODIUM 40 MG VIAL IV PUSH SCH ×2 (08:50→20:29)
[2016-10-08] MEDS: VERAPAMIL HCL 240 MG SUSTAINED RELEASE TAB PO SCH ×2 (08:50→20:28)
[2016-10-08] MEDS: GABAPENTIN 300 MG CAP PO SCH ×3 (08:50→17:32)
[2016-10-08] MEDS: HYDROCHLOROTHIAZIDE 25 MG TAB PO SCH (08:50)
[2016-10-08] MEDS: SODIUM CHLORIDE 0.9% FLUSH 5 ML FLUSH FLUSH SCH ×2 (09:00→20:29)
[2016-10-08 12:00] VITALS: BP 119/65; PULSE 82; RESP 16; TEMP 97.8; O2SAT 97
--- NOTE | 2016-10-08 15:36 | HHI.PR ---
Subjective Remarks The patient was sitting up in a chair. She said she had had a bowel movement today. She says she was about to try eating something. She had no acute complaints. Discussed with nursing. Objective Vitals Vital Signs Date Time Temp Pulse Resp B/P Pulse Ox O2 Delivery O2 Flow Rate FiO2 10/08/16 12:00 97.8 82 16 119/65 97 10/08/16 08:00 97.9 81 16 139/70 96 10/08/16 05:33 97.5 76 18 121/59 94 10/08/16 01:01 97.5 91 18 119/58 95 10/07/16 21:06 96.0 67 16 135/68 100 10/07/16 16:00 97.8 80 18 139/80 98 I/O 10/07/16 10/07/16 10/07/16 10/08/16 10/08/16 10/08/16 07:00 15:00 23:00 07:00 15:00 23:00 Intake Total 0 ml 175 ml Balance 0 ml 175 ml Intake Oral 0 ml IV Total 175 ml # Voids 2 4 2 # Bowel Movements 2 4 1 Result Diagram: 10/08/16 0653 10/08/16 0653 Imaging Last Impressions Abdomen/Pelvis CT 10/06/16 0000 Signed Impressions: Service Date/Time: October 21:48 - CONCLUSION: Inhomogeneous density in the subcutaneous tissues of the left abdominal wall adjacent to the surgical mesh probably area of scarring, however traumatic contusion is not excluded and should be correlated clinically. Jayden Fang MD Objective Remarks GENERAL: This is a well-nourished, well-developed patient, in no apparent distress. SKIN: No rashes, ecchymoses or lesions. Cool and dry. HEAD: Atraumatic. Normocephalic. No temporal or scalp tenderness. EYES: Pupils equal round and reactive. Extraocular motions intact. No scleral icterus. No injection or drainage. ENT: Nose without bleeding, purulent drainage or septal hematoma. Throat without erythema, tonsillar hypertrophy or exudate. Uvula midline. Airway patent. NECK: Trachea midline. No JVD or lymphadenopathy. Supple, nontender, no meningeal signs. CARDIOVASCULAR: Regular rate and rhythm without murmurs, gallops, or rubs. RESPIRATORY: Clear to auscultation. Breath sounds equal bilaterally. No wheezes , rales, or rhonchi. GASTROINTESTINAL: Abdomen soft, non-tender, nondistended. No hepato-splenomegaly , or palpable masses. No guarding. MUSCULOSKELETAL: Extremities without clubbing, cyanosis. Trace bilateral lower extremity edema. NEUROLOGICAL: Awake and alert. Cranial nerves II through XII intact. Motor and sensory grossly within normal limits. Five out of 5 muscle strength in all muscle groups. Normal speech. PSYCH: Mood and affect appropriate. Procedures Colonoscopy 10/07 Medications and IVs Current Medications Medications (Trade) Dose Ordered Sig/Saroj Route Start Time Stop Time Status Last Admin (Neurontin) 300 mg TID PO 10/07/16 09:00 10/08/16 08:50 (Hydrodiuril) 25 mg DAILY PO 10/07/16 09:00 10/08/16 08:50 (Alva 10-325 Mg) 1 tab Q4H PRN PO 10/06/16 23:15 (Synthroid) 75 mcg DAILY@06 PO 10/07/16 06:00 10/08/16 05:10 (Isoptin Sr) 240 mg BID PO 10/07/16 09:00 10/08/16 08:50 (NS Flush) 2 ml UNSCH PRN FLUSH 10/06/16 23:30 (NS Flush) 2 ml BID FLUSH 10/07/16 09:00 10/08/16 09:00 (Tylenol) 650 mg Q4H PRN PO 10/06/16 23:30 (Zofran Inj) 4 mg Q6H PRN IVP 10/06/16 23:30 10/07/16 05:07 (Compazine Supp) 25 mg Q12H PRN [place] 10/06/16 23:30 (Dulcolax Supp) 10 mg DAILY PRN [place] 10/06/16 23:30 (Senokot) 17.2 mg Q12H PRN PO 10/06/16 23:30 (Narcan Inj) 0.4 mg UNSCH PRN IV 10/06/16 23:30 Clonidine 0.1 mg 0.1 mg Q6H PRN PO 10/06/16 23:30 (D5W-NS 1000 ml Inj) 1,000 ml @ 42 mls/hr [id number] IV 10/06/16 23:30 10/07/16 22:45 (Vasotec Inj) 2.5 mg Q6H PRN IV PUSH 10/06/16 23:30 (Morphine Inj) 5 mg Q4H PRN IV PUSH 10/06/16 23:30 (Protonix Inj) 40 mg Q12HR IV PUSH 10/07/16 09:00 10/08/16 08:50 A/P Assessment and Plan GIB The pt had a colonoscopy which showed diverticulosis throughout the colon. The pt's hemoglobin is slightly lower 10/08. - follow CBC BID. - PPI. - follow up with GI. - ADAT. - IVFs. GABRIELLE Prerenal from GIB. Improved with fluids. - IVFs. - avoid nephrotoxic agents. HTN Currently well controlled. - continue home meds. - Vasotec as needed. PPx: SCDs. Discharge Planning Awaiting clinical improvement, GI clearance. Gen Quiroz DO Oct 08, 2016 15:36
[2016-10-08 16:00] VITALS: BP 104/65; PULSE 80; RESP 16; TEMP 96.8; O2SAT 95
--- NOTE | 2016-10-08 18:42 | HHI.GIFU ---
Subjective Remarks Up in chair. Tolerating clear liquids. No n/v. No abdominal pain. No further bleeding- has not had a bowel movement today. (Stephanie Art) Objective Vitals I&O Vital Signs Date Time Temp Pulse Resp B/P Pulse Ox O2 Delivery O2 Flow Rate FiO2 10/08/16 12:00 97.8 82 16 119/65 97 10/08/16 08:00 97.9 81 16 139/70 96 10/08/16 05:33 97.5 76 18 121/59 94 10/08/16 01:01 97.5 91 18 119/58 95 10/07/16 21:06 96.0 67 16 135/68 100 I/O 10/07/16 10/07/16 10/07/16 10/08/16 10/08/16 10/08/16 07:00 15:00 23:00 07:00 15:00 23:00 Intake Total 0 ml 175 ml Balance 0 ml 175 ml Intake Oral 0 ml IV Total 175 ml # Voids 2 4 2 # Bowel Movements 2 4 1 Laboratory Laboratory Tests Test 10/08/16 06:53 White Blood Count 6.2 Red Blood Count 2.84 Hemoglobin 8.0 Hematocrit 24.4 Mean Corpuscular Volume 86.0 Mean Corpuscular Hemoglobin 28.3 Mean Corpuscular Hemoglobin 32.9 Concent Red Cell Distribution Width 17.5 Platelet Count 525 Mean Platelet Volume 7.1 Neutrophils (%) (Auto) 55.6 Lymphocytes (%) (Auto) 30.8 Monocytes (%) (Auto) 6.2 Eosinophils (%) (Auto) 7.1 Basophils (%) (Auto) 0.3 Neutrophils # (Auto) 3.4 Lymphocytes # (Auto) 1.9 Monocytes # (Auto) 0.4 Eosinophils # (Auto) 0.4 Basophils # (Auto) 0.0 CBC Comment DIFF FINAL Differential Comment Sodium Level 144 Potassium Level 3.6 Chloride Level 104 Carbon Dioxide Level 33.0 Anion Gap 7 Blood Urea Nitrogen 13 Creatinine 1.14 Estimat Glomerular Filtration 55 Rate Random Glucose 82 Calcium Level 8.8 Imaging Last Impressions Abdomen/Pelvis CT 10/06/16 0000 Signed Impressions: Service Date/Time: October 21:48 - CONCLUSION: Inhomogeneous density in the subcutaneous tissues of the left abdominal wall adjacent to the surgical mesh probably area of scarring, however traumatic contusion is not excluded and should be correlated clinically. Jayden Fang MD Physical Exam HEENT: Normocephalic; atraumatic; no jaundice. CHEST: Chest is clear to auscultation and percussion. CARDIAC: Regular rate and rhythm with no murmur gallop or rubs. ABDOMEN: Soft, nondistended, nontender; no hepatosplenomegaly; bowel sounds are present in all four quadrants. EXTREMITIES: No clubbing, cyanosis, or edema. SKIN: Normal; no rash; no jaundice. BRUSH FINISHER: No focal deficits; alert and oriented times three. (Stephanie Art) Assessment and Plan Plan ASSESSMENT: - GIB with bloody stools. EGD/Colonoscopy (06/21/16)-----> diverticulosis, grade I hemorrhoids, external hemorrhoids, gastritis, esophagitis, bx revealed gastritis and esophagitis. She denies alcohol intake. Abdomen/Pelvis CT (10/06/16)---> Inhomogeneous density in the subcutaneous tissues of the left abdominal wall adjacent to the surgical mesh probably area of scarring, however traumatic contusion is not excluded and should be correlated clinically. S/P EGD (10/07/16)---> Diverticulosis throughout the colon , otherwise normal colonoscopy. Has not had any further bleeding. Tolerating clear liquids and denies any n/v/pain. HH 8.0/24.4. - Anemia, acute blood loss. 8.0/24.4. - HTN, Asthma per attending Plan: - Heart healthy diet- High fiber diet - CBC in am - If no further bleeding and HH stable in am, okay to d/c home in am - FU ZOILA 2 weeks - Patient seen and examined by Dr. Malik and myself and this note is written on his behalf. (Stephanie Art) Physician Comments Patient seen and examined Agree with above Continue with current supportive care Monitor labs Follow-up with GI post discharge We will sign off (Paddy Malik MD) Stephanie Art Oct 08, 2016 18:41 Paddy Malik MD Oct 08, 2016 20:59
[2016-10-08 19:24] LABS: HEMATOCRIT 24.7 % (35.0-46.0); MEAN CELL VOLUME 87.4 FL (80.0-100.0); MEAN CORPUSCULAR HEMOGLOBIN 28.9 PG (27.0-34.0); MEAN CORPUSCULAR HGB CONC 33.1 % (32.0-36.0); PLATELET COUNT 521 TH/MM3 (150-450); RED BLOOD COUNT 2.82 MIL/MM3 (4.00-5.30); RED CELL DISTRIBUTION WIDTH 17.1 % (11.6-17.2); REVIEW FLAG FINAL; WHITE BLOOD COUNT 6.5 TH/MM3 (4.0-11.0)
[2016-10-08] MEDS: DEXT 5%-NACL 0.9% 1000 ML INJ 1,000 ML IV SCH (20:32)
[2016-10-08 20:44] VITALS: BP 118/72; PULSE 77; RESP 16; TEMP 96.9; O2SAT 97
[2016-10-09 00:31] VITALS: BP 103/49; PULSE 82; RESP 18; TEMP 97; O2SAT 98
[2016-10-09 04:40] VITALS: BP 108/54; PULSE 66; RESP 18; TEMP 97.3; O2SAT 95
[2016-10-09] MEDS: LEVOTHYROXINE SODIUM 75 MCG TAB PO SCH (06:25)
[2016-10-09 08:00] VITALS: BP 117/75; PULSE 83; RESP 16; TEMP 97; O2SAT 95
--- NOTE | 2016-10-09 09:06 | HHI.FF ---
Face to Face Verification Diagnosis: (1) GI bleed (2) Fatigue Physical Therapy Order: Evaluate and Treat, Improve ambulation, Strength and gait training Home Health Nursing Order: Medical education Signs/symptoms of disease process Nursing assessment with vital signs I have seen patient Dorys Levine on 10/09/16. My clinical findings support the need for the requested home health care services because: Deconditioned w/ increased weakness I certify that my clinical findings support that this patient is homebound because: Unsteady gait/balance Gen Quiroz DO Oct 09, 2016 09:06
--- NOTE | 2016-10-09 09:07 | HHI.DCPOC ---
Discharge Care Plan Diagnosis: (1) GI bleed (2) Fatigue Your Health Problems Are: Bleeding Tendency Exercise Tolerance Goals to Promote Your Health * To prevent worsening of your condition and complications * To maintain your health at the optimal level Directions to Meet Your Goals Take your medications as prescribed Follow your dietary instruction Follow activity as directed Keep your appointments as scheduled Take your immunizations and boosters as scheduled If your symptoms worsen call your PCP, if no PCP go to Urgent Care Center or Emergency Room Smoking is Dangerous to Your Health. Avoid second hand smoke Call the 24-hour hour crisis hotline for domestic abuse at Gen Quiroz DO Oct 09, 2016 09:07
[2016-10-09 09:13] LABS: BICARBONATE 33.5 MEQ/L (21.0-32.0); MAGNESIUM 2.1 MG/DL (1.5-2.5); POTASSIUM 3.7 MEQ/L (3.5-5.1)
[2016-10-09 09:24] LABS: HEMATOCRIT 25.8 % (35.0-46.0); MEAN CELL VOLUME 86.2 FL (80.0-100.0); MEAN CORPUSCULAR HEMOGLOBIN 27.8 PG (27.0-34.0); MEAN CORPUSCULAR HGB CONC 32.2 % (32.0-36.0); PLATELET COUNT 456 TH/MM3 (150-450); RED BLOOD COUNT 2.99 MIL/MM3 (4.00-5.30); RED CELL DISTRIBUTION WIDTH 17.5 % (11.6-17.2); REVIEW FLAG FINAL; WHITE BLOOD COUNT 8.9 TH/MM3 (4.0-11.0)
[2016-10-09] MEDS ORDERED: HYDR12.56 PO (09:36)
[2016-10-09] MEDS ORDERED: PANT40TA3 PO (09:36)
--- NOTE | 2016-10-09 09:39 | HHI.DS ---
cc: Joe Larson MD Discharge Summary Admission Date Oct 06, 2016 at 23:08 Discharge Date: Oct 09, 2016 Admitting Diagnosis GI bleed (1) GI bleed ICD Code: K92.2 Diagnosis: Principal (2) Fatigue ICD Code: 780.79 (3) Renal insufficiency ICD Code: N28.9 Procedures Colonoscopy 10/07 Brief History - From Admission 81 y AAF, NEW PT TO MY PRACTICE THIS WEEK. PT IN USUALY STATE OF HEALTH UNTIL BRBPR FOR SEVERAL DAYS. PT SON CONVINCED HER TO GO TO THE ER. PT W CONTINUAL BLEED. NPO NOW. TAKING MAG CITRATE. C/O GENERAL WEAKNESS AND BEING FEARFUL OF THE SITUATION. D/W RN. D/W ER PA. CBC/BMP: 10/09/16 0727 10/09/16 0727 Significant Findings Laboratory Tests Test 10/06/16 10/07/16 10/08/16 10/08/16 14:25 06:20 06:53 19:02 Red Blood Count 3.33 MIL/MM3 3.03 MIL/MM3 2.84 MIL/MM3 2.82 MIL/MM3 (4.00-5.30) (4.00-5.30) (4.00-5.30) (4.00-5.30) Hemoglobin 9.2 GM/DL 8.4 GM/DL 8.0 GM/DL 8.2 GM/DL (11.6-15.3) (11.6-15.3) (11.6-15.3) (11.6-15.3) Hematocrit 28.7 % 26.2 % 24.4 % 24.7 % (35.0-46.0) (35.0-46.0) (35.0-46.0) (35.0-46.0) Red Cell Distribution Width 17.6 % 17.6 % 17.5 % (11.6-17.2) (11.6-17.2) (11.6-17.2) Platelet Count 527 TH/MM3 500 TH/MM3 525 TH/MM3 521 TH/MM3 (150-450) (150-450) (150-450) (150-450) Prothrombin Time 11.8 SEC (9.8-11.6) Blood Urea Nitrogen 24 MG/DL (7-18) 20 MG/DL (7-18) Creatinine 1.09 MG/DL 1.10 MG/DL 1.14 MG/DL (0.50-1.00) (0.50-1.00) (0.50-1.00) Estimat Glomerular Filtration 58 ML/MIN (>89) 58 ML/MIN (>89) 55 ML/MIN (>89) Rate Aspartate Amino Transf 9 U/L (15-37) (AST/SGOT) Alkaline Phosphatase 146 U/L (45-117) Albumin 3.0 GM/DL (3.4-5.0) Mean Platelet Volume 6.9 FL (7.0-11.0) Chloride Level 109 MEQ/L (98-107) Eosinophils (%) (Auto) 7.1 % (0.0-4.0) Carbon Dioxide Level 33.0 MEQ/L (21.0-32.0) Test 10/09/16 07:27 Red Blood Count 2.99 MIL/MM3 (4.00-5.30) Hemoglobin 8.3 GM/DL (11.6-15.3) Hematocrit 25.8 % (35.0-46.0) Red Cell Distribution Width 17.5 % (11.6-17.2) Platelet Count 456 TH/MM3 (150-450) Carbon Dioxide Level 33.5 MEQ/L (21.0-32.0) Creatinine 1.22 MG/DL (0.50-1.00) Estimat Glomerular Filtration 51 ML/MIN (>89) Rate Calcium Level 8.3 MG/DL (8.5-10.1) Imaging Last Impressions Abdomen/Pelvis CT 10/06/16 0000 Signed Impressions: Service Date/Time: October 21:48 - CONCLUSION: Inhomogeneous density in the subcutaneous tissues of the left abdominal wall adjacent to the surgical mesh probably area of scarring, however traumatic contusion is not excluded and should be correlated clinically. Jayden Fang MD PE at Discharge GENERAL: This is a well-nourished, well-developed patient, in no apparent distress. SKIN: No rashes, ecchymoses or lesions. Cool and dry. HEAD: Atraumatic. Normocephalic. No temporal or scalp tenderness. EYES: Pupils equal round and reactive. Extraocular motions intact. No scleral icterus. No injection or drainage. ENT: Nose without bleeding, purulent drainage or septal hematoma. Throat without erythema, tonsillar hypertrophy or exudate. Uvula midline. Airway patent. NECK: Trachea midline. No JVD or lymphadenopathy. Supple, nontender, no meningeal signs. CARDIOVASCULAR: Regular rate and rhythm without murmurs, gallops, or rubs. RESPIRATORY: Clear to auscultation. Breath sounds equal bilaterally. No wheezes , rales, or rhonchi. GASTROINTESTINAL: Abdomen soft, non-tender, nondistended. No hepato-splenomegaly , or palpable masses. No guarding. MUSCULOSKELETAL: Extremities without clubbing, cyanosis. Trace bilateral lower extremity edema. NEUROLOGICAL: Awake and alert. Cranial nerves II through XII intact. Motor and sensory grossly within normal limits. Five out of 5 muscle strength in all muscle groups. Normal speech. PSYCH: Mood and affect appropriate. Pt update on day of discharge The patient was feeling well. She stated that she had a bowel movement yesterday and there was no blood in it. She said she was feeling a little weak but was ambulating. Discussed with case management. The patient will be discharged with home health care. Hospital Course GIB CT of the abdomen showed: Inhomogeneous density in the subcutaneous tissues of the left abdominal wall adjacent to the surgical mesh, probably area of scarring. GI was consulted. The pt was started on IVFs and received an IV PPI. The pt had a colonoscopy which showed diverticulosis throughout the colon. The pt's hemoglobin has been stable following colonoscopy. No further bleeding has been reported. She will be discharged on a PPI. She will have a repeat CBC as an outpt. She will follow up with GI and her PCP. Her aspirin has been put on hold. GABRIELLE The pt received IVFs. Her HCTZ dose will be halved and she will follow up with her PCP. She will have a repeat BMP in 3-5 days. HTN Blood pressure was initially elevated but has since been well controlled. HCTZ will be halved as above. She will follow up with her PCP. Pt Condition on Discharge: Stable Discharge Disposition: Disch w/ Home Health Serv Discharge Time: > 30 minutes Discharge Instructions DIET: Follow Instructions for: Heart Healthy Diet Activities you can perform: Weight Bearing as Pebbles Follow up Referrals: Gastroenterology - 2 Weeks @ [facility] PCP Follow-up - 1 Week New Orders: BASIC METABOLIC PROF - 3-5 Days CBC NO DIFF - 3-5 Days New Medications: Hydrochlorothiazide (Hydrochlorothiazide) 12.5 Mg Tab 12.5 MG PO DAILY Blood Pressure Management #30 Ref 0 TAB Pantoprazole (Pantoprazole) 40 Mg Tab 40 MG PO BID Reflux #60 Ref 0 TAB Continued Medications: Gabapentin (Gabapentin) 300 Mg Cap 300 MG PO TID #90 Ref 0 CAP Hydrocodone-Acetaminophen (Hydrocodone-Acetaminophen) 10-325 mg Tab 0.5-1 TAB PO Q4H PRN PAIN Ref 0 TAB Levothyroxine (Levothyroxine) 75 Mcg Tab 75 MCG PO DAILY Thyroid #30 Ref 0 TAB Loratadine (Claritin) 10 Mg Tab 10 MG PO DAILY Allergy Management Ref 0 TAB Meclizine (Meclizine) 25 Mg Tab 25 MG PO BID PRN VERTIGO Ref 0 TAB Oxycodone-Acetaminophen (Oxycodone-Acetaminophen) 5-325 mg Tab 1 TAB PO Q4H PRN pain #30 TAB Promethazine Supp (Promethazine Supp) 25 Mg Supp 25 MG RECTAL DAILY PRN NAUSEA OR VOMITING Ref 0 SUPP Simvastatin (Simvastatin) 40 Mg Tab 40 MG PO HS Cholesterol Management #30 Ref 0 TAB Verapamil ER 24 HR (Verapamil ER 24 HR) 240 Mg Tab 240 MG PO BID #30 Ref 0 TAB Discontinued Medications: Aspirin (Aspirin) 81 Mg Tabdr 81 MG PO DAILY TAB Hydrochlorothiazide (Hydrochlorothiazide) 25 Mg Tab 25 MG PO DAILY #30 Ref 0 TAB Gen Quiroz DO Oct 09, 2016 09:39
== END 2016-10-09 15:25 | disposition home health service (06) ==
LOC: NEPE 13:31 → NEDA 23:08 → INTOOBSV 23:08 → N06B 10-07 03:32
PROVIDERS: ADMIT Family Medicine; ATTEND Family Medicine
DX: K57.30 Diverticulosis of large intestine without perforation or abscess without bleeding (principal); R53.83 Other fatigue; N28.9 Disorder of kidney and ureter, unspecified; K21.9 Gastro-esophageal reflux disease without esophagitis; I25.10 Atherosclerotic heart disease of native coronary artery without angina pectoris; I10 Essential (primary) hypertension; E78.00 Pure hypercholesterolemia, unspecified; Z79.01 Long term (current) use of anticoagulants
CPT/HCPCS: 00810; 45378; 74176; 80048; 80053; 81001; 83735; 85025; 85027; 85610; 85730; 86850; 86900; 86901; 93005; 97162; 99285; C9113; G0378; G8987; G8988; J2405; J7030; J7042

== ENCOUNTER 2018-03-09 18:24 | Observation (INO) ==
--- NOTE | 2018-03-09 19:28 | ED ---
HPI General Chief Complaint: Chest Pain Stated Complaint: Chest pain Time Seen by Provider: 03/09/18 19:05 Source: patient Limitations: no limitations History of Present Illness HPI narrative: Patient is an 82-year-old female, past medical history significant for hypertension, hyperlipidemia, thyroid disease, who presents with complaint of intermittent chest pain over the last several days that lasts several seconds when it comes on and radiates to her neck bilaterally. She states that sometimes the pain comes on with rest and sometimes with exertion. It is associated with dyspnea for several seconds. No leg swelling, nausea, vomiting, immobilization. No cough nor fevers. MD complaint: chest pain Complete Quality Measures for STEMI Alert Patients STEMI Alert: No Onset (ago): day(s) Duration: intermittent Onset: during rest and during exertion Pain location: substernal and left chest Severity: mild Quality: tightness and sharp Pain radiation: neck Relieving factors: nothing Associated symptoms: dyspnea Treatments prior to arrival chest pain: none Related Data Home Medications Medication Instructions Recorded Confirmed aspirin 81 mg PO DAILY 03/09/18 03/09/18 divalproex 250 mg PO BID 03/09/18 03/09/18 gabapentin 300 mg PO TID 03/09/18 03/09/18 hydrocodone-acetaminophen 1 tab PO Q4H PRN 03/09/18 03/09/18 levothyroxine [Synthroid] 100 mcg PO DAILY 03/09/18 03/09/18 loratadine 10 mg PO DAILY 03/09/18 03/09/18 metoclopramide HCl [Reglan] 5 mg PO TID 03/09/18 03/09/18 metoprolol succinate 25 mg PO DAILY 03/09/18 03/09/18 pantoprazole 40 mg PO BID 03/09/18 03/09/18 simvastatin 40 mg PO QPM 03/09/18 03/09/18 verapamil 240 mg PO Q12H 03/09/18 03/09/18 Allergies Allergy/AdvReac Type Severity Reaction Status Date / Time diatrizoate meglumine Allergy Unknown Unverified 03/21/17 18:41 gadobenic acid Allergy Unknown Unverified 03/21/17 18:41 gadodiamide Allergy Unknown Unverified 03/21/17 18:41 gadoteridol Allergy Unknown Unverified 03/21/17 18:41 iodixanol Allergy Unknown Unverified 03/21/17 18:41 iohexol Allergy Unknown Unverified 03/21/17 18:41 Review of Systems Except as stated in HPI: all other systems reviewed are negative Constitutional Denies fever(s) Eyes Denies blurry vision ENT Denies nasal congestion Cardiovascular Reports chest pain Respiratory Reports dyspnea Gastrointestinal Denies abdominal pain Musculoskeletal Denies back pain Integumentary/Breasts Denies rash Neurologic Denies numbness and Denies weakness Psychiatric Denies confusion [facility] Medical History Medical History Bilateral inguinal hernia (Acute) GERD (gastroesophageal reflux disease) (Acute) Hiatal hernia (Acute) Hyperlipemia (Acute) Hypertension (Acute) Hypothyroid (Acute) Neuropathy (Acute) Seasonal allergies (Acute) Surgical History Surgical History History of repair of hiatal hernia (Acute) Hx of bilateral inguinal hernia repair (Acute) Social History Social History Smoking Status: Former smoker How Often Do You Have a Drink Containing Alcohol: Never Recent Travel in [facility] within the Last 8 Weeks: No Recent Out of Country Travel within the Last 8 Weeks: No Immunization History Tetanus Immunization: >5 Years Hx Influenza Vaccine This Season: No Exam Narrative Exam Narrative: GENERAL: Well-appearing, elderly female in no acute distress. SKIN: Focused skin assessment warm/dry. HEAD: Atraumatic. Normocephalic. EYES: Pupils equal and round. No scleral icterus. No injection or drainage. ENT: No nasal bleeding or discharge. Mucous membranes pink and moist. NECK: Trachea midline. No JVD. CARDIOVASCULAR: Regular rate and rhythm. No murmur appreciated. RESPIRATORY: No accessory muscle use. Clear to auscultation. Breath sounds equal bilaterally. Reproducible sharp pain on palpation of the chest wall. GASTROINTESTINAL: Abdomen soft, non-tender, nondistended. MUSCULOSKELETAL: No obvious deformities. No clubbing. No cyanosis. No edema. NEUROLOGICAL: Awake and alert. No obvious cranial nerve deficits. Motor grossly within normal limits. Normal speech. PSYCHIATRIC: Appropriate mood and affect; insight and judgment normal. Course Hospital Course: On arrival patient was placed on a monitor and IV was established. She was given aspirin and EKG was obtained which did not show an acute STEMI. Labs and chest x-ray were ordered. She is hypertensive on her arrival and states that she is due to take her twice per day antihypertensive. Reevaluation(s) Reevaluation #1: Patient continues to feel well and has not had any chest pain while in the emergency department. Time: 21:29 Initial Documented Vital Signs Temperature 98.5 F 03/09/18 18:40 Pulse Rate 79 03/09/18 18:40 Respiratory Rate 18 03/09/18 18:40 Blood Pressure 215/93 H 03/09/18 18:40 Pulse Oximetry 97 03/09/18 18:40 Last Documented Vital Signs Temperature 98.5 F 03/09/18 18:40 Pulse Rate 76 03/09/18 18:46 Respiratory Rate 18 03/09/18 18:40 Blood Pressure 215/93 H 03/09/18 18:40 Pulse Oximetry 97 03/09/18 18:40 Medical Decision Making MDM Narrative Medical decision making narrative: Patient is an 82-year-old female who presented with complaint of intermittent chest pain. EKG does not show an acute STEMI. She is low risk for pulmonary embolism. She has been hemodynamically stable while in the emergency department. She has been admitted to the chest pain center for serial troponins and a stress test. Differential Diagnosis Differential Diagnosis: Differential diagnosis includes but is not limited to myocardial infarction, unstable angina, pulmonary embolism, pneumonia, gastroesophageal reflux disease. Medical Records Medical records reviewed: Yes I reviewed the patient's medical records. Lab Data Lab results reviewed: Yes I reviewed the patient's lab results. Lab results narrative: Labs reveal slight worsening of chronic abnormal creatinine. Initial troponin unremarkable. Result diagrams: 03/09/18 20:00 03/09/18 19:27 Lab Results 03/09/18 03/09/18 03/09/18 Range/Units 19:27 19:27 20:00 WBC 7.1 (4.0-11.0) th/mm3 RBC 3.68 L (4.00-5.30) mil/mm3 Hgb 10.4 L (11.6-15.3) gm/dL Hct 32.3 L (35.0-46.0) % MCV 87.8 (80.0-100.0) fL MCH 28.4 (27.0-34.0) pg MCHC 32.3 (32.0-36.0) % RDW 18.3 H (11.6-17.2) % Plt Count 332 (150-450) th/mm3 MPV 8.0 (7.0-11.0) fL PT 11.1 (9.8-11.6) sec INR 1.1 Ratio APTT 23.6 L (24.3-30.1) sec Sodium 143 (136-145) meq/L Potassium 3.7 (3.5-5.1) meq/L Chloride 108 H (98-107) meq/L Carbon Dioxide 28.9 (21.0-32.0) meq/L Anion Gap 6 (5-15) meq/L BUN 20 H (7-18) mg/dL Creatinine 1.31 H (0.50-1.00) mg/dL Estimated GFR 47 L (>89) mL/min Random Glucose 97 (74-106) mg/dL Calcium 9.0 (8.5-10.1) mg/dL Troponin I Less than 0.02 L (0.02-0.05) ng/mL Imaging Data Attestation: I personally reviewed and interpreted this imaging study as follows : My impression: No acute cardiopulmonary findings. Radiologist's impression: Chest X-Ray 03/09/18 19:18 CONCLUSION: No acute findings. Tortuous aorta. ECG Data EKG Prior to Arrival: No Attestation: I personally reviewed and interpreted this ECG as follows: Discharge Plan Discharge Disposition Patient Disposition: 30 Still Patient Discharge Condition Condition: Stable Discharge Details Diagnosis: Chest pain, rule out acute myocardial infarction Physicians Team ED Provider: Stefanie Valdez Primary Care Provider: UNKNOWN, Attending Provider: Joe Haley Discharge Interventions Interventions: Vital Signs Last Done: 03/09/18 18:46 Status ED Status: Admitted Observation Patient
[2018-03-09] MEDS ORDERED: Labetalol HCl Inj 100 MG/20 ML Vial IV.PUSH ONE (19:29)
[2018-03-09 19:49] VITALS: RESP 18; O2SAT 97
[2018-03-09 19:51] LABS: Anion Gap 6 meq/L (5-15); Blood Urea Nitrogen 20 mg/dL (7-18); Carbon Dioxide 28.9 meq/L (21.0-32.0); Chloride 108 meq/L (98-107); Glomerular Filtration Rate 47 mL/min (>89); Glucose,Random 97 mg/dL (74-106); Potassium 3.7 meq/L (3.5-5.1); Sodium 143 meq/L (136-145)
[2018-03-09 19:54] LABS: Activated Partial Thrombo Time 23.6 sec (24.3-30.1); INR 1.1 Ratio; Prothrombin Time 11.1 sec (9.8-11.6)
[2018-03-09 20:43] LABS: Hematocrit 32.3 % (35.0-46.0); Hemoglobin 10.4 gm/dL (11.6-15.3); Mean Corpuscular HGB Conc 32.3 % (32.0-36.0); Mean Corpuscular Hemoglobin 28.4 pg (27.0-34.0); Mean Corpuscular Volume 87.8 fL (80.0-100.0); Platelet Count 332 th/mm3 (150-450); Red Blood Count 3.68 mil/mm3 (4.00-5.30); Red Cell Distribution Width 18.3 % (11.6-17.2); White Blood Count 7.1 th/mm3 (4.0-11.0)
--- NOTE | 2018-03-09 21:08 | XR ---
EXAM DATE: 03/09/2018 8:56 PM EDT AGE/SEX: 82 years / Female INDICATIONS: . Chest pain. CLINICAL DATA: This is the patient's initial encounter. Patient reports that signs and symptoms have been present for 1 day and indicates a pain score of 4/10. MEDICAL/SURGICAL HISTORY: . Cardiovascular disease. Hypercholesterolemia. Hypertension.SURGICAL HISTORY : Hysterectomy. Cholecystectomy.Multiple hernia repairs . COMPARISON: [facility] [place], CHEST SINGLE AP, 02/11/2011. . FINDINGS: PA and lateral views of the chest demonstrate the lungs to be symmetrically aerated without evidence of mass, infiltrate or effusion. The cardiomediastinal contours demonstrate tortuous aorta. Osseous s tructures are intact. CONCLUSION: No acute findings. Tortuous aorta. Electronically signed by: Epifanio Lewis MD 03/09/2018 9:06 PM EDT
[2018-03-10] MEDS ORDERED: Acetaminophen 500 MG Tablet PO PRN (07:22)
--- NOTE | 2018-03-10 10:08 | P.HPCA ---
History of Present Illness Primary Care Physician: PCP unknown Chief Complaint: Chest pain History of Present Illness: 82 year old female with history of hyperlipidemia, hypertension, and hypothyroidism presents to ER for further evaluation of nonexertional, chest pain. Onset "at least weeks ago, maybe 6 weeks." Location varies from left anterior chest, substernal, right-sided chest. Characterized as a quick onset sharp pain. Moderate in severity. Last 3 days discomfort increased in frequency and intensity. Intermittent discomfort described as 3-4 sharp pains followed by 10-15 minutes of tightness. Discomfort is reproducible with palpation. No radiation of pain. No associated symptoms of nausea, vomiting, or diaphoresis. Endorses chronic intermittent nausea follows with GI. No precipitating or relieving factors. No recent illness or injury. Follows with Dr. Costa. Reports full cardiac workup less than 2 years ago. also reports intermittent bilateral neck pain, varies in intensity and location. Discomfort alternates from left and right side neck. Characterized as quick, achy, sharp pain. No associated symptoms with neck pain, precipitating or relieving factors. States her daughter concerned and encouraged her to come the ER for further evaluation. Past cardiac testing Reports normal nuclear cardiac testing less than 2 years ago. History of either angioplasty or cardiac stent in late 80s early 90s. Total of 3 cardiac catheterizations, unable to recall most recent cardiac catheterization. Records indicate he had catheterization completed here at [facility] in 2002. Results below. 03/26/2003 Cardiac catheterization (Dr. Carrillo) Conclusions: 1. Mild narrowing of the ostium of the left main likely to represent spasm at the tip of the catheter with bridging and limit left anterior descending. 2. Codominant circumflex and right coronary artery system. 3. There was spasm at the tip of the catheter cannot cannulating the ostium at the right coronary artery, which was relieved with intracoronary nitroglycerin. 4. Normal left ventricular systolic function with mildly elevated left ventricular end-diastolic pressure. - Diagnosis (1) Atypical chest pain (2) H/O: hypertension (3) H/O gastroesophageal reflux (GERD) (4) H/O: hypothyroidism (5) Anemia Review of Systems All other systems reviewed negative except as stated in HPI PMFSH - History History Provided By: Patient - Medical History Medical History: Medical History (Last Reviewed 03/10/18 @ 10:30 by ESTELA Butler) Bilateral inguinal hernia GERD (gastroesophageal reflux disease) Hiatal hernia Hyperlipemia Hypertension Hypothyroid Neuropathy Seasonal allergies - Surgical History Surgical History: Surgical History (Last Reviewed 03/10/18 @ 10:30 by ESTELA Butler) History of repair of hiatal hernia Hx of bilateral inguinal hernia repair - Tobacco History Second Hand Smoke Exposure: No Tobacco Use In Past 30 Days: No Smoking Status: Former smoker (quit in late teens) - Alcohol History How Often Do You Have a Drink Containing Alcohol: Never - Substance Use History Substance History: No History of Abuse - Travel History History of Recent Travel: No Recent Travel in the [place] Within the Last 8 Weeks: No Recent Travel Out of the Country Within the Last 8 Weeks: No - Immunization History Tetanus Immunization: >5 Years Hx Influenza Vaccine This Season: No Medications and Allergies Active Medications: Active Medications Acetaminophen (Tylenol) 500 mg PO Q4H PRN PRN Reason: HEADACHE Aspirin (Aspirin) 325 mg PO DAILY [facility] Pantoprazole Sodium (Protonix) 40 mg PO BID [facility] Last Admin: 03/10/18 08:03 Dose: 40 mg Sodium Chloride (Ns Flush) 2 ml IV.FLUSH UNSCH PRN PRN Reason: FLUSH AFTER USING IV ACCESS Sodium Chloride (Ns Flush) 2 ml IV.FLUSH PRN PRN PRN Reason: FLUSH AFTER USING IV ACCESS Sodium Chloride (Ns Flush) 2 ml IV.FLUSH BID [facility] Last Admin: 03/10/18 08:03 Dose: 2 ml Allergies Allergy/AdvReac Type Severity Reaction Status Date / Time diatrizoate meglumine Allergy Unknown Unverified 03/21/17 18:41 gadobenic acid Allergy Unknown Unverified 03/21/17 18:41 gadodiamide Allergy Unknown Unverified 03/21/17 18:41 gadoteridol Allergy Unknown Unverified 03/21/17 18:41 iodixanol Allergy Unknown Unverified 03/21/17 18:41 iohexol Allergy Unknown Unverified 03/21/17 18:41 Home Medications Medication Instructions Recorded Confirmed Type aspirin 81 mg PO DAILY 03/09/18 03/09/18 History divalproex 250 mg PO BID 03/09/18 03/09/18 History gabapentin 300 mg PO TID 03/09/18 03/09/18 History hydrocodone-acetaminophen 1 tab PO Q4H PRN 03/09/18 03/09/18 History levothyroxine [Synthroid] 100 mcg PO DAILY 03/09/18 03/09/18 History loratadine 10 mg PO DAILY 03/09/18 03/09/18 History metoclopramide HCl [Reglan] 5 mg PO TID 03/09/18 03/09/18 History metoprolol succinate 25 mg PO DAILY 03/09/18 03/09/18 History pantoprazole 40 mg PO BID 03/09/18 03/09/18 History simvastatin 40 mg PO QPM 03/09/18 03/09/18 History verapamil 240 mg PO Q12H 03/09/18 03/09/18 History Exam Vital signs: Vital Signs 03/09/18 18:40 03/09/18 18:46 03/09/18 21:35 Temperature 98.5 F Pulse Rate 79 76 79 Respiratory Rate 18 18 Blood Pressure 215/93 H 177/79 H Pulse Oximetry 97 97 03/10/18 00:27 03/10/18 00:39 03/10/18 02:08 Temperature 97.8 F Pulse Rate 73 Respiratory Rate 18 16 Blood Pressure 188/81 H Pulse Oximetry 98 98 03/10/18 03:08 03/10/18 03:34 03/10/18 07:18 Temperature 97.8 F 97.9 F Pulse Rate 73 79 81 Respiratory Rate 18 16 Blood Pressure 168/94 H 190/79 H Pulse Oximetry 98 98 03/10/18 07:37 03/10/18 09:00 Temperature Pulse Rate 83 75 Respiratory Rate Blood Pressure Pulse Oximetry Intake & Output 03/09/18 03/10/18 03/10/18 18:59 06:59 18:59 Weight 92.079 kg 92.079 kg Other: Date of Last Bowel Movement 03/09/18 Weight On Admission 92.079 kg Narrative: GENERAL: Alert WN, WD, NAD, very pleasant, morbidly obese -[place] elderly female HEAD: NC, AT NECK: Supple, no masses, trachea midline CV: RRR, without murmur, rub, gallop. Chest wall pain easily reproduced with light palpation. RESP: Clear lungs throughout bilateral, no crackles, wheeze, rhonchi, symmetrical chest rise, nonlabored, able to speak in full sentences ABD: Soft, NT, ND, no masses, positive bowel tones EXT: Pulses +2x4, no dependent edema MS: Normal tone x4 extremities, nontender, no obvious deformities, full range of motion NEURO: CN II through CN XII grossly intact, motor strength 5/5, gait WNL PSYCH: A+O x3, pleasant affect, appropriate speech, mood, insight and judgment SKIN: Normal turgor, normal texture, no lesions, no rashes, dry Results 03/09/18 20:00 03/09/18 19:27 Cardiac Enzymes 03/09/18 03/09/18 03/10/18 Range/Units 19:27 22:45 03:44 Troponin I Less than 0.02 L Less than 0.02 L Less than 0.02 L (0.02-0.05) ng/mL Coagulation 03/09/18 Range/Units 19:27 PT 11.1 (9.8-11.6) sec APTT 23.6 L (24.3-30.1) sec CBC 03/09/18 Range/Units 20:00 WBC 7.1 (4.0-11.0) th/mm3 RBC 3.68 L (4.00-5.30) mil/mm3 Hgb 10.4 L (11.6-15.3) gm/dL Hct 32.3 L (35.0-46.0) % Plt Count 332 (150-450) th/mm3 Comprehensive Metabolic Panel 03/09/18 Range/Units 19:27 Sodium 143 (136-145) meq/L Potassium 3.7 (3.5-5.1) meq/L Chloride 108 H (98-107) meq/L Carbon Dioxide 28.9 (21.0-32.0) meq/L BUN 20 H (7-18) mg/dL Creatinine 1.31 H (0.50-1.00) mg/dL Calcium 9.0 (8.5-10.1) mg/dL Intake and Output 03/09/18 03/10/18 03/10/18 22:59 06:59 14:59 Other: Date of Last Bowel Movement 03/09/18 Weight 92.079 kg 92.079 kg Weight On Admission 92.079 kg EKG interpretations - EKG EKG results cardiology: sinus rhythm, normal axis, normal QRS, normal ST/T Caprini VTE Risk Assessment Caprini VTE Risk Assessment: Moderate/High Risk (score >= 2) Caprini Risk Assessment Model: Point Value = 1 Point Value = 2 Point Value = 3 Point Value = 5 Age 41-60 Minor surgery BMI > 25 kg/m2 Swollen legs Varicose veins or History of unexplained or recurrent spontaneous Oral contraceptives or hormone replacement Sepsis (< 1 month) Serious lung disease, including pneumonia (< 1 month) Abnormal pulmonary function Acute myocardial infarction Congestive heart failure (< 1 month) History of inflammatory bowel disease Medical patient at bed rest Age 61-74 Arthroscopic surgery Major open surgery (> 45 min) Laparoscopic surgery (> 45 min) Malignancy Confined to bed (> 72 hours) Immobilizing plaster cast Central venous access Age >= 75 History of VTE Family history of VTE Factor V Leiden Prothrombin [id number] Lupus anticoagulant Anticardiolipin antibodies Elevated serum homocysteine Heparin-induced thrombocytopenia Other congenital or acquired thrombophilia Stroke (< 1 month) Elective arthroplasty Hip, pelvis, or leg fracture Acute spinal cord injury (< 1 month) Prophylaxis Regimen: Total Risk Factor Score Risk Level Prophylaxis Regimen 0-1 Low Early ambulation 2 Moderate Order ONE of the following: *Sequential Compression Device (SCD) *Heparin 5000 units SQ BID 3-4 Higher Order ONE of the following medications: *Heparin 5000 units SQ TID *Enoxaparin/Lovenox 40 mg SQ daily (WT < 150 kg, CrCl > 30 mL/min) *Enoxaparin/Lovenox 30 mg SQ daily (WT < 150 kg, CrCl > 10-29 mL/min) *Enoxaparin/Lovenox 30 mg SQ BID (WT < 150 kg, CrCl > 30 mL/min) AND/OR *Sequential Compression Device (SCD) 5 or more Highest Order ONE of the following medications: *Heparin 5000 units SQ TID (Preferred with Epidurals) *Enoxaparin/Lovenox 40 mg SQ daily (WT < 150 kg, CrCl > 30 mL/min) *Enoxaparin/Lovenox 30 mg SQ daily (WT < 150 kg, CrCl > 10-29 mL/min) *Enoxaparin/Lovenox 30 mg SQ BID (WT < 150 kg, CrCl > 30 mL/min) AND *Sequential Compression Device (SCD) Assessment and Plan - Assessment (1) Atypical chest pain Code(s): R07.89 - Other chest pain Status: Acute Plan: Admitted to chest pain center. ACS ruled out with 3 sets of EKGs and cardiac enzymes. Will be seen and evaluated by Dr. Joe Haley. Discussed likely will proceed with cardiac testing later this morning. She refuses any further cardiac testing, states she would prefer to follow up with her sight mounter Dr. Muro. Not unreasonable to discharge home with follow up with PCP and sight mounter. She agrees to wait for Dr. Haley before making a final decision. (2) H/O: hypertension Code(s): Z86.79 - Personal history of other diseases of the circulatory system Status: Chronic Plan: Continue Metoprol and verapamil. (3) H/O gastroesophageal reflux (GERD) Code(s): Z87.19 - Personal history of other diseases of the digestive system Status: Chronic Plan: Continue Protonix. (4) H/O: hypothyroidism Code(s): Z86.39 - Personal history of other endocrine, nutritional and metabolic disease Status: Chronic Plan: Continue levothyroxine. (5) Anemia Code(s): D64.9 - Anemia, unspecified Status: Chronic Plan: Follow-up with primary care provider as previously instructed. H&P: Quality - VTE Deep Vein Thrombosis/Pulmonary Embolism Present on Admission: No (5) Anemia Qualifiers: Anemia type: unspecified type Qualified Code(s): D64.9 - Anemia, unspecified
[2018-03-10] MEDS ORDERED: Loratadine 10 MG Tablet PO SCH (10:15)
[2018-03-10] MEDS ORDERED: Levothyroxine 100 MCG Tablet PO SCH (10:15)
[2018-03-10] MEDS ORDERED: Verapamil SR 240 MG Tablet PO SCH (11:00)
[2018-03-10] MEDS: Metoclopramide 10 MG Tablet PO SCH ×2 (11:01→14:24)
[2018-03-10] MEDS ORDERED: Gabapentin 300 MG Capsule PO ONE (11:15)
--- NOTE | 2018-03-10 11:58 | ECG ---
Date Performed: 03/10/2018 Time Performed: 00:47:12 PTAGE: 82 years EKG: Sinus rhythm POSSIBLE RIGHT VENTRICULAR CONDUCTION DELAY BORDERLINE ECG PREVIOUS TRACING : 03/09/2018 18.35 Since previous tracing, no significant change noted DOCTOR: Joe Haley Interpretating Date/Time 03/10/2018 11:56:31
--- NOTE | 2018-03-10 13:52 | ECG ---
Date Performed: 03/09/2018 Time Performed: 22:59:59 PTAGE: 82 years EKG: Sinus rhythm NORMAL ECG Since the PREVIOUS TRACING , no significant change noted DOCTOR: Liya Cornejo Interpretating Date/Time 03/10/2018 13:51:42
--- NOTE | 2018-03-10 14:03 | ECG ---
Date Performed: 03/09/2018 Time Performed: 18:35:01 PTAGE: 82 years EKG: JUNCTIONAL RHYTHM INCOMPLETE RIGHT BUNDLE BRANCH BLOCK ABNORMAL RHYTHM ECG Since the PREVIOUS TRACING , no significant change noted PREVIOUS TRACIN10/06/2016 14.53 DOCTOR: Liya Cornejo Interpretating Date/Time 03/10/2018 14:03:04
[2018-03-10] MEDS ORDERED: Gabapentin 300 MG Capsule PO SCH (18:00)
[2018-03-11] MEDS ORDERED: Aspirin 325 MG Tablet PO SCH (09:00)
[2018-03-13 18:31] VITALS: BP 172/80; PULSE 86; TEMP 98.3
== END 2018-03-10 15:09 | disposition home or self-care (01) ==
LOC: NEPFCDU 18:24 → NEPC 18:24 → NEDA 18:24 → NEPFCDU 03-10 00:20

== ENCOUNTER 2018-05-19 19:39 | Inpatient (IN) ==
[2018-05-19] MEDS ORDERED: Morphine Inj 4 MG/ML Vial IV.PUSH ONE (19:49)
[2018-05-19] MEDS ORDERED: Sodium Chlor 0.9% Inj 500 ML IV.SIG SCH (20:00)
--- NOTE | 2018-05-19 20:21 | CT ---
EXAM DATE: 05/19/2018 8:05 PM EDT AGE/SEX: 82 years / Female INDICATIONS: Cephalgia today. CLINICAL DATA: This is the patient's initial encounter. Patient reports that signs and symptoms have been present for 1 day and indicates a pain score of 7/10. MEDICAL/SURGICAL HISTORY: Hypertension. Hypothyroidism. Inguinal hernia repair. RADIATION DOSE: 51.90 CTDI (mGy) COMPARISON: [facility], CT BRAIN W/O CONTRAST, 02/27/2017. . TECHNIQUE: CT of the head without contrast. Using automated exposure control and adjustment of the mA and/or kV according to patient size, radiation dose was kept as low as reasonably achievable to ob tain optimal diagnostic quality images. DICOM format image data is available electronically for revi ew and comparison. FINDINGS: Cerebrum: The ventricles are normal for age. No evidence of midline shift, mass lesion, hemorrhage or acute infarction. No extraaxial fluid collections are seen. Chronic ischemic changes in the inter nal capsule white matter region bilaterally. Posterior Fossa: The cerebellum and brainstem are intact. The 4th ventricle is midline. The cerebe llopontine angle is unremarkable. Extracranial: The visualized portion of the orbits is intact. Skull: The calvaria is intact. No evidence of skull fracture. CONCLUSION: No acute intracranial findings. . Electronically signed by: Smooth Sheehan MD 05/19/2018 8:19 PM EDT
--- NOTE | 2018-05-19 20:34 | CT ---
EXAM DATE: 05/19/2018 8:05 PM EDT AGE/SEX: 82 years / Female INDICATIONS: Upper abdomen pain today. CLINICAL DATA: This is the patient's initial encounter. Patient reports that signs and symptoms have been present for 1 day and indicates a pain score of 6/10. MEDICAL/SURGICAL HISTORY: Gastroesophageal reflux disease. Hypothyroidism. Hiatal hernia. Ing uinal hernia repair. RADIATION DOSE: 20.02 CTDI (mGy) ; Patient body habitus COMPARISON: [facility], CT ENTEROGRAPHY, 02/13/2017. . TECHNIQUE: Multiple contiguous axial images were obtained through the abdomen. Images were obtained using multiple row detector helical technique. Using automated exposure control and adjustment of the mA and/or kV according to patient size, radiation dose was kept as low as reasonably achievable to o btain optimal diagnostic quality images. DICOM format image data is available electronically for rev iew and comparison. FINDINGS: Lower Lungs: Opacity at the left lung base likely representing atelectasis. Liver: Liver is homogeneous and within normal limits. Cholecystectomy clips noted. Diffuse dilatation of the common duct again seen measuring 2 cm in diameter. Spleen: Homogeneous density without enlargement. Pancreas: Unremarkable without mass or calcification. Kidneys: Normal in size and shape. No evidence of mass or hydronephrosis. Adrenal Glands: Unremarkable. Aorta: Diffusely tortuous and calcified. Diameter within normal limits. Bowel/Mesentery: Numerous colonic diverticula are seen diffusely. There are multiple areas of mild s tranding in the abdominal fat adjacent to the colon but no dominant area to suggest definitive acute diverticulitis. No evidence of abscess or free air. Appendix is within normal limits. Abdominal Wall: Evidence of prior anterior abdominal wall surgery. Retroperitoneum: No evidence of adenopathy in the retrocrural, para-aortic, or deep pelvic regions. Bladder: Large central pelvic mass is again seen displacing the bladder. It measures 11.5 x 8.2 cm c ompared to 10.7 x 8.0 cm on the prior study of 02/13/2017. Reproductive Organs: The patient is reportedly status post hysterectomy. Inguinal: The inguinal region is unremarkable without evidence of adenopathy. Bony Structures: Prominent degenerative findings lumbar spine and prominent arthrosis of the sacroil iac joints. Sclerotic focus in the right side of the sacrum is unchanged. CONCLUSION: 1. Numerous colonic diverticula are again seen. Multiple nonspecific stranding opacity is seen in th e abdominal fat adjacent to the colon but no definitive acute diverticulitis. 2. Diffuse dilatation of the common duct again seen, measuring 2 cm in diameter, unchanged. 3. 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 Slight increase in size when compare d to the prior study of February 2017. Electronically signed by: Smooth Sheehan MD 05/19/2018 8:32 PM EDT
--- NOTE | 2018-05-19 21:21 | ED ---
HPI General Chief complaint: Nausea/Vomiting/Diarrhea Stated complaint: N/V Time Seen by Provider: 05/19/18 19:42 Source: patient and EMS Mode of arrival: EMS Limitations: no limitations History of Present Illness HPI Narrative: 82-year-old female that comes from home for evaluation of migraine headache, nausea and vomit that started since 3:00 this morning. Per patient is been continued. She cannot keep anything down. Patient she does have some epigastric pain from just throwing up. Per patient she feels like she is an upset stomach. She denies any lower abdominal pain. No urinary issues. No chest pain. No shortness of breath. Has not seen anybody for this. She was brought here by [facility] and was given some Zofran with some improvement of symptoms. Per [facility] she did throw up once for them and it was bile. No blood. She denies take any blood thinners. No history of heart disease. She does have allergy to contrast. Denies any numbness, drooling, weakness. Per patient she is had headaches in the past but she believes that this is more related to her throwing up. Per patient the pain in the head is 7 out of 10. Tylenol is not helping but she also cannot keep it down. No other medical issues reported at this time. Related Data Home Medications Medication Instructions Recorded Confirmed aspirin 81 mg PO DAILY 03/09/18 05/19/18 divalproex 250 mg PO BID 03/09/18 05/19/18 gabapentin 300 mg PO TID 03/09/18 05/19/18 hydrocodone-acetaminophen 1 tab PO Q4H PRN 03/09/18 05/19/18 levothyroxine [Synthroid] 100 mcg PO DAILY 03/09/18 05/19/18 loratadine 10 mg PO DAILY 03/09/18 05/19/18 metoclopramide HCl [Reglan] 5 mg PO TID 03/09/18 05/19/18 metoprolol succinate 25 mg PO DAILY 03/09/18 05/19/18 pantoprazole 40 mg PO BID 03/09/18 05/19/18 simvastatin 40 mg PO QPM 03/09/18 05/19/18 verapamil 240 mg PO Q12H 03/09/18 05/19/18 Allergies Allergy/AdvReac Type Severity Reaction Status Date / Time diatrizoate meglumine Allergy Intermediate Itching Verified 05/19/18 19:54 gadobenic acid Allergy Unknown Itching Verified 05/19/18 19:54 gadodiamide Allergy Unknown Itching Verified 05/19/18 19:54 gadoteridol Allergy Unknown Itching Verified 05/19/18 19:54 iodixanol Allergy Unknown Itching Verified 05/19/18 19:54 iohexol Allergy Unknown Itching Verified 05/19/18 19:54 Review of Systems ROS: all other systems reviewed are negative [facility] Medical History Medical History Bilateral inguinal hernia (Acute) GERD (gastroesophageal reflux disease) (Acute) Hiatal hernia (Acute) Hyperlipemia (Acute) Hypertension (Acute) Hypothyroid (Acute) Neuropathy (Acute) Seasonal allergies (Acute) Surgical History Surgical History History of repair of hiatal hernia (Acute) Hx of bilateral inguinal hernia repair (Acute) Social History Social History Substance History: No History of Abuse Second Hand Smoke Exposure: No Smoking Status: Former smoker How Often Do You Have a Drink Containing Alcohol: Never Hx Recent Travel: No Recent Travel in [facility] within the Last 8 Weeks: No Recent Out of Country Travel within the Last 8 Weeks: No Immunization History Tetanus Immunization: Unsure Exam Narrative Exam Narrative: GENERAL: Well appearing SKIN: Focused skin assessment warm/dry. HEAD: Atraumatic. Normocephalic. EYES: Pupils equal and round. No scleral icterus. No injection or drainage. ENT: No nasal bleeding or discharge. Mucous membranes pink and moist. Tongue is midline. No uvula deviation. NECK: Trachea midline. No JVD. CARDIOVASCULAR: Regular rate and rhythm. No murmur appreciated. RESPIRATORY: No accessory muscle use. Clear to auscultation. Breath sounds equal bilaterally. GASTROINTESTINAL: Abdomen soft, non-tender, nondistended. Hepatic and splenic margins not palpable. MUSCULOSKELETAL: No obvious deformities. No clubbing. No cyanosis. No edema. Full range of motion of the upper and lower extremities bilaterally. 2+ pulses bilaterally. NEUROLOGICAL: Awake and alert. No obvious cranial nerve deficits. Motor grossly within normal limits. Normal speech. PSYCHIATRIC: Appropriate mood and affect; insight and judgment normal. Course Initial Documented Vital Signs Temperature 100 F H 05/19/18 19:46 Pulse Rate 114 H 05/19/18 19:46 Respiratory Rate 16 05/19/18 19:46 Blood Pressure 177/81 H 05/19/18 19:46 Pulse Oximetry 96 05/19/18 19:46 Last Documented Vital Signs Temperature 100 F H 05/19/18 19:49 Pulse Rate 109 H 05/19/18 23:01 Respiratory Rate 16 05/19/18 23:01 Blood Pressure 148/72 H 05/19/18 23:01 Pulse Oximetry 92 L 05/19/18 23:01 Medical Decision Making KAMLA Attestation KAMLA supervised visit: Yes Attestation: 82-year-old female came into the emergency room with epigastric and upper abdominal pain with nausea and vomiting since yesterday. Patient says that the pain comes and goes and is severe up to 10 at its worst. She had 2 episodes of bilious emesis while in the emergency room. She was brought in by EMS. Patient is been seen by my PA and I am supervising him. I went to see the patient and examined her abdomen. She was awake and answering questions appropriately. She appeared to be uncomfortable. She had received pain medication and multiple antiemetic medications. Her last vomit was 2 hours prior to me examining her. Patient said that she was still nauseous and the pain continues to come and go. Abdomen appeared to be soft. I reviewed her blood test and imaging results. CT abdomen showed a significantly dilated CBD which as per the radiologist is unchanged from the past CAT scan. It also shows multiple diverticula with some fat stranding but no localized signs of diverticulitis. I will order some more pain medication and fluid. At this point patient has intractable nausea and pain and I would like to admit this patient. My other concern is the dilated CBD. Patient has had cholecystectomy. I reviewed her past medical history and patient had a colonoscopy done in 2017 which showed severe diverticulosis. With the fat stranding noticed there is a possibility of this being diverticulitis. The CAT scan was done without IV contrast. I would give her a dose of Cipro and Flagyl at this point as well. MDM Narrative Medical decision making narrative: 82-year-old female that presents to the ED for evaluation of nausea and vomiting and headache. Patient was properly examined and was found to have signs and symptoms consistent with appears to be nausea and vomiting. Labs and imaging were ordered. Patient was given IV pain medications as well as antiemetics. Fluids given. Case will be signed out to my attending pending disposition and plan. Medical Screen Exam Complete: Yes Emergency Medical Condition: Yes Differential Diagnosis Differential Diagnosis: Acute abdomen versus nausea and vomiting versus intractable nausea and vomiting versus ACS versus CVA versus migraine headache versus tension headache Medical Records Medical records reviewed: Yes I reviewed the patient's medical records. Lab Data Lab results reviewed: Yes I reviewed the patient's lab results. Result diagrams: 05/19/18 22:15 05/19/18 22:15 Lab Results 05/19/18 05/19/18 05/19/18 Range/Units 22:15 22:15 22:15 WBC 7.1 (4.0-11.0) th/mm3 RBC 3.91 L (4.00-5.30) mil/mm3 Hgb 11.6 (11.6-15.3) gm/dL Hct 34.0 L (35.0-46.0) % MCV 87.1 (80.0-100.0) fL MCH 29.8 (27.0-34.0) pg MCHC 34.2 (32.0-36.0) % RDW 17.4 H (11.6-17.2) % Plt Count 328 (150-450) th/mm3 MPV 7.7 (7.0-11.0) fL Neut % (Auto) 90.4 H (16.0-70.0) % Lymph % (Auto) 6.1 L (9.0-44.0) % Ward % (Auto) 3.2 (0.0-8.0) % Eos % (Auto) 0.2 (0.0-4.0) % Baso % (Auto) 0.1 (0.0-2.0) % Neut # (Auto) 6.4 (1.8-7.7) th/mm3 Lymph # (Auto) 0.4 L (1.0-4.8) th/mm3 Ward # (Auto) 0.2 (0.0-0.9) th/mm3 Eos # (Auto) 0.0 (0.0-0.4) th/mm3 Baso # (Auto) 0.0 (0.0-0.2) th/mm3 WBC Differential . Differential Comment Auto diff final Sodium 143 (136-145) meq/L Potassium 4.3 (3.5-5.1) meq/L Chloride 104 (98-107) meq/L Carbon Dioxide 31.4 (21.0-32.0) meq/L Anion Gap 8 (5-15) meq/L BUN 17 (7-18) mg/dL Creatinine 1.31 H (0.50-1.00) mg/dL Estimated GFR 47 L (>89) mL/min Random Glucose 100 (74-106) mg/dL Lactic Acid 1.6 (0.4-2.0) mmol/L Calcium 8.8 (8.5-10.1) mg/dL Total Bilirubin 0.5 (0.2-1.0) mg/dL AST 16 (15-37) U/L ALT 12 (10-53) U/L Alkaline Phosphatase 148 H (45-117) U/L Troponin I Less than 0.02 L (0.02-0.05) ng/mL Total Protein 8.3 H (6.4-8.2) g/dL Albumin 2.9 L (3.4-5.0) g/dL Lipase 153 (73-393) U/L Urine Color (Yellw/Straw) Urine Clarity (Clear) Urine pH (5.0-8.5) Ur Specific [place] (1.002-1.035) Urine Protein (Neg-Trace) mg/dL Urine Glucose (UA) (Negative) mg/dL Urine Ketones (Negative) mg/dL Urine Occult Blood (Negative) Urine Nitrate (Negative) Urine Bilirubin (Negative) Urine Urobilinogen (Less than 2) mg/dL Ur Leukocyte Esterase (Negative) Urine RBC (0-3) /hpf Urine WBC (0-5) /hpf Ur Squamous Epith Cells (0-5) /hpf Hyaline Casts (0-3) /lpf Granular Casts (None) /lpf Urine Mucus (Occasional) /lpf Micro UA Comment Ur Microscopic Review Urine Culture Comments 05/19/18 Range/Units 22:48 WBC (4.0-11.0) th/mm3 RBC (4.00-5.30) mil/mm3 Hgb (11.6-15.3) gm/dL Hct (35.0-46.0) % MCV (80.0-100.0) fL MCH (27.0-34.0) pg MCHC (32.0-36.0) % RDW (11.6-17.2) % Plt Count (150-450) th/mm3 MPV (7.0-11.0) fL Neut % (Auto) (16.0-70.0) % Lymph % (Auto) (9.0-44.0) % Ward % (Auto) (0.0-8.0) % Eos % (Auto) (0.0-4.0) % Baso % (Auto) (0.0-2.0) % Neut # (Auto) (1.8-7.7) th/mm3 Lymph # (Auto) (1.0-4.8) th/mm3 Ward # (Auto) (0.0-0.9) th/mm3 Eos # (Auto) (0.0-0.4) th/mm3 Baso # (Auto) (0.0-0.2) th/mm3 WBC Differential Differential Comment Sodium (136-145) meq/L Potassium (3.5-5.1) meq/L Chloride (98-107) meq/L Carbon Dioxide (21.0-32.0) meq/L Anion Gap (5-15) meq/L BUN (7-18) mg/dL Creatinine (0.50-1.00) mg/dL Estimated GFR (>89) mL/min Random Glucose (74-106) mg/dL Lactic Acid (0.4-2.0) mmol/L Calcium (8.5-10.1) mg/dL Total Bilirubin (0.2-1.0) mg/dL AST (15-37) U/L ALT (10-53) U/L Alkaline Phosphatase (45-117) U/L Troponin I (0.02-0.05) ng/mL Total Protein (6.4-8.2) g/dL Albumin (3.4-5.0) g/dL Lipase (73-393) U/L Urine Color Yellow (Yellw/Straw) Urine Clarity Clear (Clear) Urine pH 6.0 (5.0-8.5) Ur Specific [place] 1.017 (1.002-1.035) Urine Protein 30 H (Neg-Trace) mg/dL Urine Glucose (UA) Negative (Negative) mg/dL Urine Ketones Trace H (Negative) mg/dL Urine Occult Blood Small H (Negative) Urine Nitrate Negative (Negative) Urine Bilirubin Negative (Negative) Urine Urobilinogen 4 or greater (Less than 2) mg/dL Ur Leukocyte Esterase Negative (Negative) Urine RBC 4 H (0-3) /hpf Urine WBC 1 (0-5) /hpf Ur Squamous Epith Cells 2 (0-5) /hpf Hyaline Casts 11 (0-3) /lpf Granular Casts 1 (None) /lpf Urine Mucus Few H (Occasional) /lpf Micro UA Comment Culture not ind Ur Microscopic Review Not Reportable Urine Culture Comments Culture not ind Imaging Data Attestation: I personally reviewed and interpreted this imaging study as follows : Radiologist's impression: Abdomen/Pelvis CT 05/19/18 19:49 CONCLUSION: 1. Numerous colonic diverticula are again seen. Multiple nonspecific stranding opacity is seen in the abdominal fat adjacent to the colon but no definitive acute diverticulitis. 2. Diffuse dilatation of the common duct again seen, measuring 2 cm in diameter , unchanged. 3. 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 Slight increase in size when compared to the prior study of February 2017. Chest X-Ray 05/19/18 19:49 CONCLUSION: No acute cardiopulmonary disease identified. Head CT 05/19/18 19:52 CONCLUSION: No acute intracranial findings. . Discharge Plan Discharge Disposition Patient Disposition: 30 Still Patient Physicians Team ED Provider: Jamey Ag ED Midlevel Provider: Hai Whitley Primary Care Provider: UNKNOWN, Attending Provider: Celia Layton Status ED Status: Admitted Observation Patient
--- NOTE | 2018-05-19 21:45 | XR ---
EXAM DATE: 05/19/2018 7:49 PM EDT AGE/SEX: 82 years / Female INDICATIONS: Nausea, vomiting, syncope. CLINICAL DATA: This is the patient's subsequent encounter. Patient reports that signs and symptoms h ave been present for 1 day and indicates a pain score of 0/10. MEDICAL/SURGICAL HISTORY: Hypertension. Anemia. Gastroesophageal reflux disease. Neuropathy. Inguinal hernia repair. Hiatal hernia repair. COMPARISON: [facility] [place], CHEST 2V PA&LAT, 03/09/2018. . FINDINGS: Single AP view of the chest. The lungs are clear. Tortuous thoracic aorta. Cardiomediastin al silhouette otherwise within normal limits. No evidence of pleural effusion or pneumothorax. CONCLUSION: No acute cardiopulmonary disease identified. Electronically signed by: Smooth Sheehan MD 05/19/2018 9:44 PM EDT
[2018-05-19 22:37] LABS: Baso % (Auto) 0.1 % (0.0-2.0); Eos % (Auto) 0.2 % (0.0-4.0); Hemoglobin 11.6 gm/dL (11.6-15.3); Lymph # (Auto) 0.4 th/mm3 (1.0-4.8); Lymph % (Auto) 6.1 % (9.0-44.0); Mean Corpuscular HGB Conc 34.2 % (32.0-36.0); Mean Corpuscular Hemoglobin 29.8 pg (27.0-34.0); Mean Corpuscular Volume 87.1 fL (80.0-100.0); Mean Platelet Volume 7.7 fL (7.0-11.0); Mono # (Auto) 0.2 th/mm3 (0.0-0.9); Mono % (Auto) 3.2 % (0.0-8.0); Neut # (Auto) 6.4 th/mm3 (1.8-7.7); Neut % (Auto) 90.4 % (16.0-70.0); Platelet Count 328 th/mm3 (150-450); Red Blood Count 3.91 mil/mm3 (4.00-5.30); Red Cell Distribution Width 17.4 % (11.6-17.2); White Blood Count 7.1 th/mm3 (4.0-11.0)
[2018-05-19 22:54] LABS: Alanine Aminotransferase 12 U/L (10-53); Albumin 2.9 g/dL (3.4-5.0); Alkaline Phosphatase 148 U/L (45-117); Anion Gap 8 meq/L (5-15); Aspartate Aminotransferase 16 U/L (15-37); Blood Urea Nitrogen 17 mg/dL (7-18); Calcium 8.8 mg/dL (8.5-10.1); Carbon Dioxide 31.4 meq/L (21.0-32.0); Chloride 104 meq/L (98-107); Glomerular Filtration Rate 47 mL/min (>89); Glucose,Random 100 mg/dL (74-106); Lipase 153 U/L (73-393); Potassium 4.3 meq/L (3.5-5.1); Sodium 143 meq/L (136-145); Total Protein 8.3 g/dL (6.4-8.2)
[2018-05-19 23:18] LABS: Bilirubin,Urine Negative (Negative); Clarity,Urine Clear (Clear); Color,Urine Yellow (Yellw/Straw); Glucose,Urine (UA) Negative (Negative); Hyaline Casts,Urine 11 /lpf (0-3); Leukocyte Esterase,Urine Negative (Negative); Mucus,Urine Few /lpf (Occasional); Nitrite,Urine Negative (Negative); Specific Gravity,Urine 1.017 (1.002-1.035); Squamous Epithelial Cell,Urine 2 /hpf (0-5); Urobilinogen,Urine 4 or Greater mg/dL (Less than 2)
[2018-05-20] MEDS ORDERED: Morphine Inj 4 MG/ML Vial IV.PUSH ONE (01:14)
[2018-05-20] MEDS ORDERED: Ciprofloxacin 400 MG/200 ML 400 MG/200 ML PIGGYBACK IV.SIG ONE (01:17)
[2018-05-20] MEDS ORDERED: Acetaminophen 325 MG Tablet PO PRN (01:26)
[2018-05-20] MEDS ORDERED: Bisacodyl 10 MG Supp RECTAL PRN (01:26)
[2018-05-20] MEDS ORDERED: Morphine Inj 4 MG/ML Vial IV.PUSH PRN (01:27)
--- NOTE | 2018-05-20 01:48 | P.HPIM ---
History of Present Illness Primary Care Physician: UNKNOWN History of Present Illness: This is an 82-year-old female with a PMH of HTN, Hyperlipidemia, Hypothyroidism , Neuropathy and GERD who presented to ER with complaints of abdominal pain in addition to nausea and vomiting since yesterday morning. States she was able to eat a piece of chicken and cheese earlier today, however has had no PO intake since then due to multiple episodes of nausea/vomiting. Reports epigastric pain, sharp, intermittent, 8/10, non-radiating. On arrival, BP 137/ 81, HR 114, O2 sat 96% on RA, Temp 100. CBC essentially unremarkable. Creatinine 1.31 previously 1.318 318. Troponin negative. Lipase 153. Lactic Acid normal. UA negative. CXR with no acute findings. CT Abdomen/Pelvis with numerous colonic diverticula, multiple nonspecific stranding adjacent to the colon, no acute diverticulitis, diffuse dilatation of CBD unchanged, 11 cm pelvic mass displacing the bladder, slightly increased in size in comparison to February 2017. - Diagnosis (1) Intractable nausea and vomiting (2) Abdominal pain (3) Renal insufficiency Review of Systems PAST FAMILY HISTORY: Reviewed. 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 - Medical History Medical History: Medical History (Last Reviewed 05/19/18 @ 21:20 by KIMBERLY [address]) Bilateral inguinal hernia GERD (gastroesophageal reflux disease) Hiatal hernia Hyperlipemia Hypertension Hypothyroid Neuropathy Seasonal allergies - Surgical History Surgical History: Surgical History (Last Reviewed 05/19/18 @ 21:20 by KIMBERLY Plaza) History of repair of hiatal hernia Hx of bilateral inguinal hernia repair - Tobacco History Second Hand Smoke Exposure: No Tobacco Use In Past 30 Days: No Smoking Status: Former smoker - Alcohol History How Often Do You Have a Drink Containing Alcohol: Never - Substance Use History Substance History: No History of Abuse - Travel History History of Recent Travel: No Recent Travel in the [place] Within the Last 8 Weeks: No Recent Travel Out of the Country Within the Last 8 Weeks: No - Immunization History Tetanus Immunization: Unsure Medications and Allergies Active Medications: Active Medications Acetaminophen (Tylenol) 650 mg PO Q4H PRN PRN Reason: Temp > 100.4 Al Hydroxide/Mg Hydroxide (Milk Of Magnesia Liq) 30 ml PO Q12H PRN PRN Reason: Mild Constipation Bisacodyl (Dulcolax Supp) 10 mg RECTAL DAILY PRN PRN Reason: SEVERE CONSITIPATION Sodium Chloride (Ns Inj) 500 mls @ 0 mls/hr IV.SIG BOLUS KEMI Last Infusion: 05/20/18 00:01 Dose: Infused Ciprofloxacin/Dextrose (Cipro 400 Mg/200 Ml Inj) 400 mg in 200 mls @ 200 mls/ hr IV.SIG ONCE ONE Stop: 05/20/18 02:16 Metronidazole/Sodium Chloride (Flagyl 500 Mg Inj) 100 mls @ 100 mls/hr IV.SIG ONCE ONE Stop: 05/20/18 02:16 Sodium Chloride (Ns Inj) 1,000 mls @ 100 mls/hr IV.CONT .Q10H KEMI Lactulose (Lactulose Liq) 30 ml PO DAILY PRN PRN Reason: SEVERE CONSITIPATION Morphine Sulfate (Morphine Inj) 2 mg IV.PUSH Q4H PRN PRN Reason: PAIN 6-10 Ondansetron HCl (Zofran Inj) 4 mg IV.PUSH Q6H PRN PRN Reason: NAUSEA OR VOMITING Pantoprazole Sodium (Protonix Inj) 40 mg IV.PUSH Q12H KEMI Senna/Docusate Sodium (Enma-Colace) 1 tab PO BID KEMI Sennosides (Senokot) 17.2 mg PO Q12H PRN PRN Reason: Moderate Constipation Allergies Allergy/AdvReac Type Severity Reaction Status Date / Time diatrizoate meglumine Allergy Intermediate Itching Verified 05/19/18 19:54 gadobenic acid Allergy Unknown Itching Verified 05/19/18 19:54 gadodiamide Allergy Unknown Itching Verified 05/19/18 19:54 gadoteridol Allergy Unknown Itching Verified 05/19/18 19:54 iodixanol Allergy Unknown Itching Verified 05/19/18 19:54 iohexol Allergy Unknown Itching Verified 05/19/18 19:54 Home Medications Medication Instructions Recorded Confirmed Type aspirin 81 mg PO DAILY 03/09/18 05/19/18 History divalproex 250 mg PO BID 03/09/18 05/19/18 History gabapentin 300 mg PO TID 03/09/18 05/19/18 History hydrocodone-acetaminophen 1 tab PO Q4H PRN 03/09/18 05/19/18 History levothyroxine [Synthroid] 100 mcg PO DAILY 03/09/18 05/19/18 History loratadine 10 mg PO DAILY 03/09/18 05/19/18 History metoclopramide HCl [Reglan] 5 mg PO TID 03/09/18 05/19/18 History metoprolol succinate 25 mg PO DAILY 03/09/18 05/19/18 History pantoprazole 40 mg PO BID 03/09/18 05/19/18 History simvastatin 40 mg PO QPM 03/09/18 05/19/18 History verapamil 240 mg PO Q12H 03/09/18 05/19/18 History Exam Vital signs: Vital Signs 05/19/18 19:46 05/19/18 19:49 05/19/18 23:01 Temperature 100 F H 100 F H Pulse Rate 114 H 94 H 109 H Respiratory Rate 16 16 16 Blood Pressure 177/81 H 177/81 H 148/72 H Pulse Oximetry 96 94 L 92 L Intake & Output 05/19/18 05/19/18 05/20/18 06:59 18:59 06:59 Intake Total 500 / 500 Balance 500 / 500 Weight 92.533 kg Intake: IV 500 / 500 NS Inj 500 ML @ Wide Open IV. 500 / 500 SIG BOLUS KEMI Rx#:[id number] Narrative: PE: GENERAL: Pleasant elderly black female in no acute distress. SKIN: Focused skin assessment warm and dry. HEENT: PERRLA, EOMI. No scleral icterus or conjunctival pallor. No lid lag or facial droop. CARDIOVASCULAR: Regular rate and rhythm. No obvious murmurs to auscultation. No chest tenderness to palpation. RESPIRATORY: No obvious rhonchi or wheezing. Clear to auscultation. Breath sounds equal bilaterally. GASTROINTESTINAL: Abdomen soft, epigastric tenderness to palpation, nondistended. BS normal. MUSCULOSKELETAL: Extremities without clubbing, cyanosis, or edema. No obvious deformities. NEUROLOGICAL: Awake, alert and oriented x4. No focal neurologic deficits. Moving both upper and lower extremities spontaneously. PSYCHIATRIC: Appropriate mood and affect. Insight and judgment normal. Results - Labs CBC & Chem 7: 05/19/18 22:15 05/19/18 22:15 Labs: Short CBC 05/19/18 Range/Units 22:15 WBC 7.1 (4.0-11.0) th/mm3 Hgb 11.6 (11.6-15.3) gm/dL Hct 34.0 L (35.0-46.0) % Plt Count 328 (150-450) th/mm3 BMP 05/19/18 22:15 Sodium 143 Potassium 4.3 Chloride 104 Carbon Dioxide 31.4 BUN 17 Creatinine 1.31 H Calcium 8.8 Cardiac Enzymes 05/19/18 Range/Units 22:15 Troponin I Less than 0.02 L (0.02-0.05) ng/mL Liver Function 05/19/18 Range/Units 22:15 Total Bilirubin 0.5 (0.2-1.0) mg/dL AST 16 (15-37) U/L ALT 12 (10-53) U/L Alkaline Phosphatase 148 H (45-117) U/L Albumin 2.9 L (3.4-5.0) g/dL Urine 05/19/18 Range/Units 22:48 Urine Color Yellow (Yellw/Straw) Urine Clarity Clear (Clear) Urine pH 6.0 (5.0-8.5) Ur Specific [place] 1.017 (1.002-1.035) Urine Protein 30 H (Neg-Trace) mg/dL Urine Glucose (UA) Negative (Negative) mg/dL - Imaging Impressions Abdomen/Pelvis CT 05/19/18 19:49 CONCLUSION: 1. Numerous colonic diverticula are again seen. Multiple nonspecific stranding opacity is seen in the abdominal fat adjacent to the colon but no definitive acute diverticulitis. 2. Diffuse dilatation of the common duct again seen, measuring 2 cm in diameter , unchanged. 3. 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 Slight increase in size when compared to the prior study of February 2017. Chest X-Ray 05/19/18 19:49 CONCLUSION: No acute cardiopulmonary disease identified. Head CT 05/19/18 19:52 CONCLUSION: No acute intracranial findings. . Caprini VTE Risk Assessment Caprini VTE Risk Assessment: No/Low Risk (score <= 1) Caprini Risk Assessment Model: Point Value = 1 Point Value = 2 Point Value = 3 Point Value = 5 Age 41-60 Minor surgery BMI > 25 kg/m2 Swollen legs Varicose veins or History of unexplained or recurrent spontaneous Oral contraceptives or hormone replacement Sepsis (< 1 month) Serious lung disease, including pneumonia (< 1 month) Abnormal pulmonary function Acute myocardial infarction Congestive heart failure (< 1 month) History of inflammatory bowel disease Medical patient at bed rest Age 61-74 Arthroscopic surgery Major open surgery (> 45 min) Laparoscopic surgery (> 45 min) Malignancy Confined to bed (> 72 hours) Immobilizing plaster cast Central venous access Age >= 75 History of VTE Family history of VTE Factor V Leiden Prothrombin [id number] Lupus anticoagulant Anticardiolipin antibodies Elevated serum homocysteine Heparin-induced thrombocytopenia Other congenital or acquired thrombophilia Stroke (< 1 month) Elective arthroplasty Hip, pelvis, or leg fracture Acute spinal cord injury (< 1 month) Prophylaxis Regimen: Total Risk Factor Score Risk Level Prophylaxis Regimen 0-1 Low Early ambulation 2 Moderate Order ONE of the following: *Sequential Compression Device (SCD) *Heparin 5000 units SQ BID 3-4 Higher Order ONE of the following medications: *Heparin 5000 units SQ TID *Enoxaparin/Lovenox 40 mg SQ daily (WT < 150 kg, CrCl > 30 mL/min) *Enoxaparin/Lovenox 30 mg SQ daily (WT < 150 kg, CrCl > 10-29 mL/min) *Enoxaparin/Lovenox 30 mg SQ BID (WT < 150 kg, CrCl > 30 mL/min) AND/OR *Sequential Compression Device (SCD) 5 or more Highest Order ONE of the following medications: *Heparin 5000 units SQ TID (Preferred with Epidurals) *Enoxaparin/Lovenox 40 mg SQ daily (WT < 150 kg, CrCl > 30 mL/min) *Enoxaparin/Lovenox 30 mg SQ daily (WT < 150 kg, CrCl > 10-29 mL/min) *Enoxaparin/Lovenox 30 mg SQ BID (WT < 150 kg, CrCl > 30 mL/min) AND *Sequential Compression Device (SCD) Assessment and Plan - Assessment (1) Intractable nausea and vomiting Code(s): R11.2 - Nausea with vomiting, unspecified Status: Acute (2) Abdominal pain Code(s): R10.9 - Unspecified abdominal pain Status: Acute (3) Renal insufficiency Code(s): N28.9 - Disorder of kidney and ureter, unspecified Status: Acute - Plan A/P: 1. Intractable NV: acute onset nausea/vomiting since yesterday, unable to take PO due to symptoms. IVF for hydration, diet as tolerated, continue analgesics/antiemetics. Protonix IV 2. Abdominal Pain: CT Abd/Pelvis w/ no acute findings, however noted to be numerous diverticula w/ stranding, in light of ongoing abdominal pain and low- grade fever, will continue w/ empiric treatment for possible early diverticulitis w/ Cipro/Flagyl 3. Renal Insufficiency: Creatinine 1.31, unchanged from 03/09/18, IVF for hydration, monitor I/O, repeat labs in am 4. DVT Prophylaxis: SCD/Teds 5. Social work for d/c planning as needed. 6. Case discussed w/ ER physician at length, labs/records/imaging reviewed by me.
[2018-05-20] MEDS ORDERED: Pantoprazole Inj 40 MG Vial IV.PUSH SCH (02:00)
[2018-05-20] MEDS: Sod Chloride 0.9% Inj 1,000 ML IV.CONT SCH ×3 (02:44→21:57)
[2018-05-20] MEDS: Senna/Docusate Sodium 8.6/50 MG Tablet PO SCH ×2 (09:08→21:56)
--- NOTE | 2018-05-20 11:51 | P.PN ---
Subjective Interval history: Pt seen and examined for f/u nausea, vomiting, and possible early diverticulitis. Reports diminished appetite and only had a few bites for breakfast. Tolerating liquids. No further emesis since yesterday evening but still with some nausea and anxiety about eating. Denies any significant abdominal pain but does endorse some epigastric discomfort when she is vomiting. Reports she is generally just not feeling well and doesn't feel back to herself yet. Denies CP or SOB. Physical Exam Vital signs: Vital Signs 05/19/18 19:46 05/19/18 19:49 05/19/18 23:01 Temperature 100 F H 100 F H Pulse Rate 114 H 94 H 109 H Respiratory Rate 16 16 16 Blood Pressure 177/81 H 177/81 H 148/72 H Pulse Oximetry 96 94 L 92 L 05/20/18 07:07 05/20/18 08:00 Temperature 99.0 F Pulse Rate 99 H 100 H Respiratory Rate 20 16 Blood Pressure 170/76 H 166/77 H Pulse Oximetry 100 Intake & Output 05/19/18 05/20/18 05/20/18 18:59 06:59 18:59 Intake Total 800 / 800 100 / 100 Balance 800 / 800 100 / 100 Weight 92.533 kg 92.986 kg Intake: IV 800 / 800 100 / 100 Cipro 400 MG/200 ML Inj 400 mg 200 / 200 In 200 ml @ 200 mls/hr IV.SIG ONCE ONE Rx#:[id number] NS Inj 500 ML @ Wide Open IV. 500 / 500 SIG BOLUS KEMI Rx#:[id number] Flagyl 500 MG Inj 100 ML @ 100 100 / 100 100 / 100 mls/hr IV.SIG Q8H KEMI Rx#: [id number] Other: Weight On Admission 92.986 kg Narrative: GENERAL: WN, WD [place] female resting in bed in NAD. SKIN: Warm and dry. HEENT: AT/NC. Pupils equal and round. MMM. NECK: Supple no tender LAD or JVD. HEART: RRR no m/r/g. LUNGS: CTAB without wheezes or crackles. ABDOMEN: +BS, soft, NT, ND. No guarding. EXTREMITIES: No LE edema. NEURO: Awake and alert. Results - Labs CBC & Chem 7: 05/19/18 22:15 05/19/18 22:15 Laboratory Results - last 24 hr 05/19/18 05/19/18 05/19/18 22:15 22:15 22:15 WBC 7.1 RBC 3.91 L Hgb 11.6 Hct 34.0 L MCV 87.1 MCH 29.8 MCHC 34.2 RDW 17.4 H Plt Count 328 MPV 7.7 Neut % (Auto) 90.4 H Lymph % (Auto) 6.1 L [place] % (Auto) 3.2 Eos % (Auto) 0.2 Baso % (Auto) 0.1 Neut # (Auto) 6.4 Lymph # (Auto) 0.4 L [place] # (Auto) 0.2 Eos # (Auto) 0.0 Baso # (Auto) 0.0 WBC Differential . Differential Comment Auto diff final Sodium 143 Potassium 4.3 Chloride 104 Carbon Dioxide 31.4 Anion Gap 8 BUN 17 Creatinine 1.31 H Estimated GFR 47 L Random Glucose 100 Lactic Acid 1.6 Calcium 8.8 Total Bilirubin 0.5 AST 16 ALT 12 Alkaline Phosphatase 148 H Troponin I Less than 0.02 L Total Protein 8.3 H Albumin 2.9 L Lipase 153 Urine Color Urine Clarity Urine pH Ur Specific Agency Urine Protein Urine Glucose (UA) Urine Ketones Urine Occult Blood Urine Nitrate Urine Bilirubin Urine Urobilinogen Ur Leukocyte Esterase Urine RBC Urine WBC Ur Squamous Epith Cells Hyaline Casts Granular Casts Urine Mucus Micro UA Comment Ur Microscopic Review Urine Culture Comments 05/19/18 22:48 WBC RBC Hgb Hct MCV MCH MCHC RDW Plt Count MPV Neut % (Auto) Lymph % (Auto) [place] % (Auto) Eos % (Auto) Baso % (Auto) Neut # (Auto) Lymph # (Auto) [place] # (Auto) Eos # (Auto) Baso # (Auto) WBC Differential Differential Comment Sodium Potassium Chloride Carbon Dioxide Anion Gap BUN Creatinine Estimated GFR Random Glucose Lactic Acid Calcium Total Bilirubin AST ALT Alkaline Phosphatase Troponin I Total Protein Albumin Lipase Urine Color Yellow Urine Clarity Clear Urine pH 6.0 Ur Specific Agency 1.017 Urine Protein 30 H Urine Glucose (UA) Negative Urine Ketones Trace H Urine Occult Blood Small H Urine Nitrate Negative Urine Bilirubin Negative Urine Urobilinogen 4 or greater Ur Leukocyte Esterase Negative Urine RBC 4 H Urine WBC 1 Ur Squamous Epith Cells 2 Hyaline Casts 11 Granular Casts 1 Urine Mucus Few H Micro UA Comment Culture not ind Ur Microscopic Review Not Reportable Urine Culture Comments Culture not ind - Imaging Impressions Abdomen/Pelvis CT 05/19/18 19:49 CONCLUSION: 1. Numerous colonic diverticula are again seen. Multiple nonspecific stranding opacity is seen in the abdominal fat adjacent to the colon but no definitive acute diverticulitis. 2. Diffuse dilatation of the common duct again seen, measuring 2 cm in diameter , unchanged. 3. 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 Slight increase in size when compared to the prior study of February 2017. Chest X-Ray 05/19/18 19:49 CONCLUSION: No acute cardiopulmonary disease identified. Head CT 05/19/18 19:52 CONCLUSION: No acute intracranial findings. . Assessment and Plan - Assessment (1) Intractable nausea and vomiting Code(s): R11.2 - Nausea with vomiting, unspecified Status: Acute (2) Abdominal pain Code(s): R10.9 - Unspecified abdominal pain Status: Acute (3) Renal insufficiency Code(s): N28.9 - Disorder of kidney and ureter, unspecified Status: Acute - Plan 82 year old female with CKD, HTN, HLD, hypothyroidism, diverticulosis, and GERD admitted overnight for evaluation of abdominal pain, nausea, and vomiting. 1. Intractable nausea and vomiting - improving - With associated epigastric pain when she is vomiting, likely secondary to gastroenteritis - U/A negative - CT A/P on admission showing numerous colonic diverticula with some surrounding fat stranding but no definitive acute diverticulitis. There was also diffuse dilation of the CBD unchanged from prior study as well as an 11 cm midline pelvic mass displacing the bladder that slightly increased in size when compared to prior study in 2017 - Patient continues to have some mild nausea but no further episodes of emesis since yesterday evening - Not taking adequate PO at this point - Continue IV fluids - ADAT - Antiemetics 2. Possible early diverticulitis - Patient does not have lower abdominal tenderness, diarrhea, or leukocytosis however on CT A/P there was possible early findings of diverticulitis and she has been empirically started on Flagyl and Cipro - Will continue IV abx for another day and see how she does - ADAT - Will need outpatient GI follow-up 3. CKD - Creatinine 1.31, unchanged from March 2018 - U/A with proteinuria - Monitor I/O - Avoid nephrotoxic agents - Will need to f/u as outpatient 4. HTN - BPs have been elevated but home meds haven't been restarted - Resume home metoprolol and verapamil - Clonidine PRN - Continue to monitor 5. HLD - Resume home statin 6. Hypothyroidism - Continue home Levothyroxine 7. GERD - Continue home PPI 8. Headache - Likely secondary to nausea/vomiting and decreased PO intake - CT head with no acute findings - Pain control - IV fluids 9. Pelvic mass - Patient unaware of this despite this being a finding on CT scan back in 2017 - She has had no f/u for this - I do not believe this is the cause of her symptoms - She will need outpatient [facility] f/u DVT prophylaxis: heparin Discharge Planning: Will monitor another day and hopefully discharge her in the AM
[2018-05-20] MEDS: Ciprofloxacin 400 MG/200 ML 400 MG/200 ML PIGGYBACK IV.SIG SCH (12:38)
[2018-05-20] MEDS: Verapamil SR 240 MG Tablet PO SCH ×2 (14:28→21:56)
[2018-05-20] MEDS: Metoclopramide 10 MG Tablet PO SCH ×2 (14:28→17:13)
[2018-05-20] MEDS: Gabapentin 300 MG Capsule PO SCH ×2 (14:28→17:13)
--- NOTE | 2018-05-20 18:57 | P.DCO ---
- Diagnosis (1) Diverticulitis Status: Acute (2) Physical deconditioning Status: Acute - Physical Therapy Order: Evaluate and treat, Improve ambulation, Strength and gait training - Home Health Nursing Order: Nursing assessment with vital signs - Case Management Consult Yes - Certification I have seen patient Dorys Levine on 05/20/18. My clinical findings support the need for the requested home health care services because: Deconditioned with increased weakness, High risk of falls I certify that my clinical findings support that this patient is homebound because: Unsteady gait/balance
[2018-05-20] MEDS: Divalproex 250 MG DR Tablet PO SCH (21:55)
[2018-05-20] MEDS: Heparin - SQ 10,000 UNITS/ML Vial SQ SCH (21:56)
[2018-05-21] MEDS: Ciprofloxacin 400 MG/200 ML 400 MG/200 ML PIGGYBACK IV.SIG SCH ×2 (01:13→13:38)
[2018-05-21 06:03] LABS: Baso % (Auto) 0.3 % (0.0-2.0); Eos # (Auto) 0.2 th/mm3 (0.0-0.4); Eos % (Auto) 4.5 % (0.0-4.0); Hematocrit 27.3 % (35.0-46.0); Lymph # (Auto) 1.1 th/mm3 (1.0-4.8); Lymph % (Auto) 30.9 % (9.0-44.0); Mean Corpuscular Hemoglobin 29.3 pg (27.0-34.0); Mean Corpuscular Volume 88.7 fL (80.0-100.0); Mean Platelet Volume 7.6 fL (7.0-11.0); Mono # (Auto) 0.4 th/mm3 (0.0-0.9); Mono % (Auto) 12.2 % (0.0-8.0); Neut # (Auto) 1.9 th/mm3 (1.8-7.7); Neut % (Auto) 52.1 % (16.0-70.0); Platelet Count 254 th/mm3 (150-450); Red Blood Count 3.08 mil/mm3 (4.00-5.30); Red Cell Distribution Width 17.9 % (11.6-17.2); White Blood Count 3.6 th/mm3 (4.0-11.0)
[2018-05-21 06:29] LABS: Alanine Aminotransferase 60 U/L (10-53); Albumin 2.1 g/dL (3.4-5.0); Alkaline Phosphatase 160 U/L (45-117); Anion Gap 8 meq/L (5-15); Aspartate Aminotransferase 41 U/L (15-37); Blood Urea Nitrogen 13 mg/dL (7-18); Calcium 8.2 mg/dL (8.5-10.1); Chloride 107 meq/L (98-107); Glomerular Filtration Rate 61 mL/min (>89); Glucose,Random 78 mg/dL (74-106); Potassium 3.8 meq/L (3.5-5.1); Sodium 142 meq/L (136-145); Total Protein 6.2 g/dL (6.4-8.2)
[2018-05-21] MEDS: Levothyroxine 100 MCG Tablet PO SCH (06:56)
--- NOTE | 2018-05-21 08:25 | P.PN ---
Subjective Interval history: Pt seen and examined. No vomiting since Monday evening but patient continues to feel nauseous and "sick" around her epigastric and RUQ regions. She states whenever she gets up she gets a headache and feels discomfort in these abdominal regions. Had a BM this AM that she reports was not black or bloody. It was well-formed and brown. She denies diarrhea. She is still not eating much and she doesn't feel right. She would like to see Dr. Valdovinos. We discussed the pelvic mass seen on CT scan that was slightly larger than in 2017 and she states this has been worked up as a benign mass next to her bladder. Physical Exam Vital signs: Vital Signs 05/20/18 12:00 05/20/18 16:00 05/20/18 20:00 Temperature 98.9 F 98.5 F 98.5 F Pulse Rate 90 85 74 Respiratory Rate 12 12 16 Blood Pressure 138/81 165/77 H 125/66 Pulse Oximetry 95 96 97 05/21/18 00:00 05/21/18 04:00 05/21/18 07:58 Temperature 98.4 F 98.8 F Pulse Rate 83 80 74 Respiratory Rate 19 18 16 Blood Pressure 174/80 H 135/66 137/70 Pulse Oximetry 96 94 L 97 Intake & Output 05/20/18 05/21/18 05/21/18 18:59 06:59 18:59 Intake Total 1400 / 1400 1540 / 1540 Output Total 100 / 100 Balance 1300 / 1300 1540 / 1540 Weight 92.986 kg Intake: IV 1400 / 1400 1300 / 1300 NS Inj 1,000 ML @ 100 mls/hr IV 1000 / 1000 1000 / 1000 .CONT .Q10H KEMI Rx#:[id number] Cipro 400 MG/200 ML Inj 400 mg 200 / 200 200 / 200 In 200 ml @ 200 mls/hr IV.SIG Q12H KEMI Rx#:[id number] Flagyl 500 MG Inj 100 ML @ 100 200 / 200 100 / 100 mls/hr IV.SIG Q8H KEMI Rx#: [id number] Oral 240 / 240 Output: Urine 100 / 100 Other: # Voids 1 3 Date of Last Bowel Movement 05/19/18 04/21/18 # Bowel Movements 1 Weight On Admission 92.986 kg Narrative: GENERAL: WN, WD [place] female resting in bed in NAD. SKIN: Warm and dry. HEENT: AT/NC. Pupils equal and round. MMM. NECK: Supple no tender LAD or JVD. HEART: RRR no m/r/g. LUNGS: CTAB without wheezes or crackles. ABDOMEN: BS present but hypoactive, soft, mild TTP around RUQ/epigastric region , ND. No guarding. RECTUM: External hemorrhoid visualized. Good rectal done on [facility]. Hemoccult negative. Stool light brown. EXTREMITIES: No LE edema. NEURO: Awake and alert. Results - Labs CBC & Chem 7: 05/21/18 03:50 05/21/18 03:50 Laboratory Results - last 24 hr 05/21/18 05/21/18 03:50 03:50 WBC 3.6 L RBC 3.08 L Hgb 9.0 L D Hct 27.3 L MCV 88.7 MCH 29.3 MCHC 33.0 RDW 17.9 H Plt Count 254 MPV 7.6 Neut % (Auto) 52.1 Lymph % (Auto) 30.9 [place] % (Auto) 12.2 H Eos % (Auto) 4.5 H Baso % (Auto) 0.3 Neut # (Auto) 1.9 Lymph # (Auto) 1.1 [place] # (Auto) 0.4 Eos # (Auto) 0.2 Baso # (Auto) 0.0 WBC Differential . Differential Comment Auto diff final Sodium 142 Potassium 3.8 Chloride 107 Carbon Dioxide 27.0 Anion Gap 8 BUN 13 Creatinine 1.04 H Estimated GFR 61 L Random Glucose 78 Calcium 8.2 L Total Bilirubin 0.2 AST 41 H ALT 60 H Alkaline Phosphatase 160 H Total Protein 6.2 L D Albumin 2.1 L D Assessment and Plan - Assessment (1) Diverticulitis Code(s): K57.92 - Diverticulitis of intestine, part unspecified, without perforation or abscess without bleeding Status: Acute (2) Physical deconditioning Code(s): R53.81 - Other malaise Status: Acute (3) Intractable nausea and vomiting Code(s): R11.2 - Nausea with vomiting, unspecified Status: Acute (4) Abdominal pain Code(s): R10.9 - Unspecified abdominal pain Status: Acute (5) Renal insufficiency Code(s): N28.9 - Disorder of kidney and ureter, unspecified Status: Acute - Plan 82 year old female with CKD, HTN, HLD, hypothyroidism, diverticulosis, and GERD admitted overnight for evaluation of abdominal pain, nausea, and vomiting. 1. Intractable nausea and vomiting - Vomiting resolved but pt still nauseous, decreased PO intake, and complaining of epigastric/RUQ "sickness" - U/A negative - CT A/P on admission showing numerous colonic diverticula with some surrounding fat stranding but no definitive acute diverticulitis. There was also diffuse dilation of the CBD unchanged from prior study as well as an 11 cm midline pelvic mass displacing the bladder that slightly increased in size when compared to prior study in 2017 - Continue IV fluids - ADAT - Antiemetics - Consult GI since patient's symptoms are still persisting, LFTs going up slightly, Hb going slightly down, and patient with CBD dilation 2. Possible early diverticulitis - Patient does not have lower abdominal tenderness, diarrhea, or leukocytosis however on CT A/P there was possible early findings of diverticulitis and she had been empirically started on Flagyl and Cipro - Will continue Cipro for now but will discontinue Flagyl since LFTs are rising and patient complaining of headache - Consulting GI as above - Hemoccult negative 3. Anemia - Hb went from 11.6 to 9.0 in less than 48 hours - Bedside Hemoccult negative - No obvious bleeding - Repeat CBC at 1300 4. Leukopenia - WBC dropped from 7.1 to 3.6 which could partly be dilutional from fluids but could also be a side effect of the Flagyl which has been stopped - Repeat CBC this afternoon 5. CKD - Creatinine 1.31 on admission, unchanged from March 2018 - Down to 1.08 this AM with IV hydration - U/A with proteinuria - Monitor I/O - Avoid nephrotoxic agents 6. HTN - BPs stable - Continue home metoprolol and verapamil - Clonidine PRN - Continue to monitor 7. HLD - Resume home statin 8. Hypothyroidism - Continue home Levothyroxine 9. GERD - Continue home PPI 10. Headache - Likely secondary to nausea/vomiting and decreased PO intake but Flagyl could have also been contributing - CT head with no acute findings - Pain control - IV fluids 11. Pelvic mass - Correction from prior note as today patient notes this is chronic and has been worked up as a benign mass near or on her bladder - I do not believe this to be the cause of her symptoms - F/U as outpatient DVT prophylaxis: heparin Discharge Planning: Consulting GI and monitoring anemia another day
--- NOTE | 2018-05-21 10:58 | P.CONGI ---
History of Present Illness Consult date: 05/21/18 Consult reason: Diverticulosis, history of GI bleed admitted for intractable nausea and vomiting. Epigastric pain with early satiety and nausea. Hemoglobin dropped from 11.6-9.0 with Hemoccult stool negative. Chief complaint: intractable nausea and abdominal pain History of Present Illness: Ms. Levine is an 82-year-old female patient with a past medical history of hypertension, hyperlipidemia, hypothyroidism, neuropathy , chronic anemia and GERD. Past surgical history includes hysterectomy and cholecystectomy. Our practice has been consulted to evaluate patient for history of diverticulosis with prior GI bleed, admitted to the hospital for intractable nausea and vomiting. CT showed fat stranding around diverticula and she has been empirically treated for diverticulitis. Patient's discomfort is epigastric and radiates to both right and left upper quadrants with 2 cm common bile duct dilation noted on CT. Patient is reporting early satiety, epigastric discomfort and nausea despite 2 days of IV antibiotics, IV fluids and antiemetics. Hemoglobin has gone from 11.6-9.0 with negative stool Hemoccult. Patient presented to the emergency room with complaint of epigastric pain after eating onset 2 days ago she describes pain as sharp and burning, states that it is intermittent and rates same at 6 out of 10 at this time. Patient states that the pain radiates to both left and right upper quadrants of abdomen. She is unable to solidify any alleviating or aggravating factors. She denies use of aspirin or NSAIDs. Denies smoking or use of EtOH. Denies any known family history for gastrointestinal diseases/disorders. States her last colonoscopy with EGD was done 8 months ago and per her recollection she was diagnosed with gastritis. Patient states she vomited 4-5 times prior to being admitted to the hospital 2 days ago. She describes the emesis as being yellow and better tasting with no noted blood. Patient denies any difficulty swallowing, reports heartburn 1-2 times weekly. Currently taking pantoprazole 40 mg p.o. twice daily. Patient with known history of diverticulitis and states her eldest daughter has history of same. Patient states she is normally constipated and moves her bowels every 3-4 days, hardened brown stool. States when she takes stool softener she is able to have a soft brown BM. Denies any blood or mucus noted. Patient denies any rectal bleeding and reports that she has been evaluated with [facility] in the past. Discussed possible need for EGD. Patient verbalizes agreement and understanding. <Sharla Valle - Last Filed: 05/21/18 10:58> Review of Systems All other systems reviewed negative except as stated in HPI <Sharla Valle - Last Filed: 05/21/18 10:58> PMFSH - History History Provided By: Patient - Medical History Medical History: Medical History (Last Reviewed 05/21/18 @ 09:22 by Royer Arreguin) Bilateral inguinal hernia GERD (gastroesophageal reflux disease) Hiatal hernia Hyperlipemia Hypertension Hypothyroid Neuropathy Seasonal allergies - Surgical History Surgical History: Surgical History (Last Reviewed 05/21/18 @ 09:22 by Royer Arreguin) History of repair of hiatal hernia Hx of bilateral inguinal hernia repair - Tobacco History Second Hand Smoke Exposure: No Tobacco Use In Past 30 Days: No (quit in 1968) Smoking Status: Former smoker - Alcohol History How Often Do You Have a Drink Containing Alcohol: Never - Substance Use History Substance History: No History of Abuse - Travel History History of Recent Travel: No Recent Travel in the [place] Within the Last 8 Weeks: No Recent Travel Out of the Country Within the Last 8 Weeks: No - Immunization History Tetanus Immunization: Unsure <Sharla Valle - Last Filed: 05/21/18 10:58> - Medical History Medical History: Medical History (Last Reviewed 05/21/18 @ 09:22 by Royer Arreguin) Bilateral inguinal hernia GERD (gastroesophageal reflux disease) Hiatal hernia Hyperlipemia Hypertension Hypothyroid Neuropathy Seasonal allergies - Surgical History Surgical History: Surgical History (Last Reviewed 05/21/18 @ 09:22 by Royer Arreguin) History of repair of hiatal hernia Hx of bilateral inguinal hernia repair <Lu Valdovinos - Last Filed: 05/21/18 17:09> Medications and Allergies Active Medications: Active Medications Acetaminophen (Tylenol) 650 mg PO Q4H PRN PRN Reason: Temp > 100.4 Al Hydroxide/Mg Hydroxide (Milk Of Magnesia Liq) 30 ml PO Q12H PRN PRN Reason: Mild Constipation Aspirin (Aspirin Chew) 81 mg PO DAILY [facility] Bisacodyl (Dulcolax Supp) 10 mg RECTAL DAILY PRN PRN Reason: SEVERE CONSITIPATION Clonidine HCl (Catapres) 0.1 mg PO Q6H PRN PRN Reason: SBP>160, DBP>90 Divalproex Sodium (Depakote Dr) 250 mg PO BID [facility] Last Admin: 05/20/18 21:55 Dose: 250 mg Gabapentin (Neurontin) 300 mg PO TID [facility] Last Admin: 05/20/18 17:13 Dose: 300 mg Heparin Sodium (Porcine) (Heparin Inj) 5,000 units SQ Q12HR [facility] Last Admin: 05/20/18 21:56 Dose: 5,000 units Sodium Chloride (Ns Inj) 500 mls @ 0 mls/hr IV.SIG BOLUS [facility] Last Infusion: 05/20/18 00:01 Dose: Infused Sodium Chloride (Ns Inj) 1,000 mls @ 100 mls/hr IV.CONT .Q10H [facility] Last Admin: 05/20/18 21:57 Dose: 100 mls/hr Ciprofloxacin/Dextrose (Cipro 400 Mg/200 Ml Inj) 400 mg in 200 mls @ 200 mls/ hr IV.SIG Q12H [facility] Last Infusion: 05/21/18 03:06 Dose: Infused Lactulose (Lactulose Liq) 30 ml PO DAILY PRN PRN Reason: SEVERE CONSITIPATION Levothyroxine Sodium (Synthroid) 100 mcg PO DAILY@0600 [facility] Last Admin: 05/21/18 06:56 Dose: 100 mcg Metoclopramide HCl (Reglan) 5 mg PO TID [facility] Last Admin: 05/20/18 17:13 Dose: 5 mg Metoprolol Succinate (Toprol Xl) 25 mg PO DAILY [facility] Miscellaneous (Pill Splitter) 1 each OTHER UNSCH PRN PRN Reason: SEE LABEL COMMENTS Morphine Sulfate (Morphine Inj) 2 mg IV.PUSH Q4H PRN PRN Reason: PAIN 6-10 Ondansetron HCl (Zofran Inj) 4 mg IV.PUSH Q6H PRN PRN Reason: NAUSEA OR VOMITING Pantoprazole Sodium (Protonix) 40 mg PO BID [facility] Last Admin: 05/20/18 21:57 Dose: 40 mg Pravastatin Sodium (Pravachol) 80 mg PO QPM [facility] Last Admin: 05/20/18 17:14 Dose: 80 mg Senna/Docusate Sodium (Enma-Colace) 1 tab PO BID [facility] Last Admin: 05/20/18 21:56 Dose: 1 tab Sennosides (Senokot) 17.2 mg PO Q12H PRN PRN Reason: Moderate Constipation Verapamil HCl (Isoptin Sr) 240 mg PO Q12HR [facility] Last Admin: 05/20/18 21:56 Dose: 240 mg <Sharla Valle - Last Filed: 05/21/18 10:58> Active Medications: Active Medications Acetaminophen (Tylenol) 650 mg PO Q4H PRN PRN Reason: Temp > 100.4 Al Hydroxide/Mg Hydroxide (Milk Of Magnesia Liq) 30 ml PO Q12H PRN PRN Reason: Mild Constipation Aspirin (Aspirin Chew) 81 mg PO DAILY [facility] Last Admin: 05/21/18 11:09 Dose: 81 mg Bisacodyl (Dulcolax Supp) 10 mg RECTAL DAILY PRN PRN Reason: SEVERE CONSITIPATION Clonidine HCl (Catapres) 0.1 mg PO Q6H PRN PRN Reason: SBP>160, DBP>90 Divalproex Sodium (Depakote Dr) 250 mg PO BID [facility] Last Admin: 05/21/18 11:09 Dose: 250 mg Gabapentin (Neurontin) 300 mg PO TID [facility] Last Admin: 05/21/18 13:38 Dose: 300 mg Heparin Sodium (Porcine) (Heparin Inj) 5,000 units SQ Q12HR [facility] Last Admin: 05/21/18 11:09 Dose: Not Given Sodium Chloride (Ns Inj) 500 mls @ 0 mls/hr IV.SIG BOLUS [facility] Last Infusion: 05/20/18 00:01 Dose: Infused Sodium Chloride (Ns Inj) 1,000 mls @ 100 mls/hr IV.CONT .Q10H [facility] Last Admin: 05/21/18 11:07 Dose: 100 mls/hr Ciprofloxacin/Dextrose (Cipro 400 Mg/200 Ml Inj) 400 mg in 200 mls @ 200 mls/ hr IV.SIG Q12H [facility] Last Infusion: 05/21/18 14:48 Dose: Infused Lactulose (Lactulose Liq) 30 ml PO DAILY PRN PRN Reason: SEVERE CONSITIPATION Levothyroxine Sodium (Synthroid) 100 mcg PO DAILY@0600 [facility] Last Admin: 05/21/18 06:56 Dose: 100 mcg Metoclopramide HCl (Reglan) 5 mg PO TID [facility] Last Admin: 05/21/18 13:38 Dose: 5 mg Metoprolol Succinate (Toprol Xl) 25 mg PO DAILY [facility] Last Admin: 05/21/18 11:08 Dose: 25 mg Miscellaneous (Pill Splitter) 1 each OTHER UNSCH PRN PRN Reason: SEE LABEL COMMENTS Morphine Sulfate (Morphine Inj) 2 mg IV.PUSH Q4H PRN PRN Reason: PAIN 6-10 Ondansetron HCl (Zofran Inj) 4 mg IV.PUSH Q6H PRN PRN Reason: NAUSEA OR VOMITING Pantoprazole Sodium (Protonix) 40 mg PO BID [facility] Last Admin: 05/21/18 11:10 Dose: 40 mg Pravastatin Sodium (Pravachol) 80 mg PO QPM [facility] Last Admin: 05/20/18 17:14 Dose: 80 mg Senna/Docusate Sodium (Enma-Colace) 1 tab PO BID [facility] Last Admin: 05/21/18 11:09 Dose: 1 tab Sennosides (Senokot) 17.2 mg PO Q12H PRN PRN Reason: Moderate Constipation Verapamil HCl (Isoptin Sr) 240 mg PO Q12HR [facility] Last Admin: 05/21/18 11:08 Dose: 240 mg <BraaileenLu - Last Filed: 05/21/18 17:09> Allergies Allergy/AdvReac Type Severity Reaction Status Date / Time diatrizoate meglumine Allergy Intermediate Itching Verified 05/19/18 19:54 gadobenic acid Allergy Unknown Itching Verified 05/19/18 19:54 gadodiamide Allergy Unknown Itching Verified 05/19/18 19:54 gadoteridol Allergy Unknown Itching Verified 05/19/18 19:54 iodixanol Allergy Unknown Itching Verified 05/19/18 19:54 iohexol Allergy Unknown Itching Verified 05/19/18 19:54 Home Medications Medication Instructions Recorded Confirmed Type aspirin 81 mg PO DAILY 03/09/18 05/19/18 History divalproex 250 mg PO BID 03/09/18 05/19/18 History gabapentin 300 mg PO TID 03/09/18 05/19/18 History hydrocodone-acetaminophen 1 tab PO Q4H PRN 03/09/18 05/19/18 History levothyroxine [Synthroid] 100 mcg PO DAILY 03/09/18 05/19/18 History loratadine 10 mg PO DAILY 03/09/18 05/19/18 History metoclopramide HCl [Reglan] 5 mg PO TID 03/09/18 05/19/18 History metoprolol succinate 25 mg PO DAILY 03/09/18 05/19/18 History pantoprazole 40 mg PO BID 03/09/18 05/19/18 History simvastatin 40 mg PO QPM 03/09/18 05/19/18 History verapamil 240 mg PO Q12H 03/09/18 05/19/18 History Exam Vital signs: Vital Signs 05/20/18 12:00 05/20/18 16:00 05/20/18 20:00 Temperature 98.9 F 98.5 F 98.5 F Pulse Rate 90 85 74 Respiratory Rate 12 12 16 Blood Pressure 138/81 165/77 H 125/66 Pulse Oximetry 95 96 97 05/21/18 00:00 05/21/18 04:00 05/21/18 07:58 Temperature 98.4 F 98.8 F Pulse Rate 83 80 74 Respiratory Rate 19 18 16 Blood Pressure 174/80 H 135/66 137/70 Pulse Oximetry 96 94 L 97 Intake & Output 05/20/18 05/21/18 05/21/18 18:59 06:59 18:59 Intake Total 1400 / 1400 1540 / 1540 Output Total 100 / 100 Balance 1300 / 1300 1540 / 1540 Weight 92.986 kg Intake: IV 1400 / 1400 1300 / 1300 NS Inj 1,000 ML @ 100 mls/hr IV 1000 / 1000 1000 / 1000 .CONT .Q10H [facility] Rx#:[id number] Cipro 400 MG/200 ML Inj 400 mg 200 / 200 200 / 200 In 200 ml @ 200 mls/hr IV.SIG Q12H [facility] Rx#:[id number] Flagyl 500 MG Inj 100 ML @ 100 200 / 200 100 / 100 mls/hr IV.SIG Q8H [facility] Rx#: [id number] Oral 240 / 240 Output: Urine 100 / 100 Other: # Voids 1 3 Date of Last Bowel Movement 05/19/18 04/21/18 # Bowel Movements 1 Weight On Admission 92.986 kg - Constitutional mild distress - Routine HEENT Exam Head: Present: normocephalic - Routine Neck Exam Present: supple - Routine Respiratory Exam Present: CTA bilaterally. Absent: accessory muscle use - Routine Cardiovascular Exam Present: RRR. Absent: tachycardia - Routine Abdominal Exam Present: soft, normoactive bowel sounds, tenderness. Absent: distended, guarding, firm Comments: Epigastric tenderness with palpation on exam - Routine Extremities Exam Present: full ROM, pulses intact. Absent: edema - Routine Skin Exam Present: dry, warm - Routine Neurological Exam Present: alert, oriented X3 <Valle,Sharla - Last Filed: 05/21/18 10:58> Vital signs: Vital Signs 05/20/18 20:00 05/21/18 00:00 05/21/18 04:00 Temperature 98.5 F 98.4 F 98.8 F Pulse Rate 74 83 80 Respiratory Rate 16 19 18 Blood Pressure 125/66 174/80 H 135/66 Pulse Oximetry 97 96 94 L 05/21/18 07:58 05/21/18 10:57 05/21/18 16:00 Temperature 98.8 F 98.7 F Pulse Rate 74 72 62 Respiratory Rate 16 16 16 Blood Pressure 137/70 155/72 H 132/61 Pulse Oximetry 97 97 97 Intake & Output 05/20/18 05/21/18 05/21/18 18:59 06:59 18:59 Intake Total 1400 / 1400 1540 / 1540 1200 / 1200 Output Total 100 / 100 Balance 1300 / 1300 1540 / 1540 1200 / 1200 Weight 92.986 kg Intake: IV 1400 / 1400 1300 / 1300 1200 / 1200 NS Inj 1,000 ML @ 100 mls/hr IV 1000 / 1000 1000 / 1000 1000 / 1000 .CONT .Q10H [facility] Rx#:[id number] Cipro 400 MG/200 ML Inj 400 mg 200 / 200 200 / 200 200 / 200 In 200 ml @ 200 mls/hr IV.SIG Q12H [facility] Rx#:[id number] Flagyl 500 MG Inj 100 ML @ 100 200 / 200 100 / 100 mls/hr IV.SIG Q8H [facility] Rx#: [id number] Oral 240 / 240 Output: Urine 100 / 100 Other: # Voids 1 3 Date of Last Bowel Movement 05/19/18 04/21/18 # Bowel Movements 1 Weight On Admission 92.986 kg <Lu Valdovinos - Last Filed: 05/21/18 17:09> Results - Labs CBC & Chem 7: 05/21/18 03:50 05/21/18 03:50 Labs: Laboratory Results - last 24 hr 05/21/18 05/21/18 03:50 03:50 WBC 3.6 L RBC 3.08 L Hgb 9.0 L D Hct 27.3 L MCV 88.7 MCH 29.3 MCHC 33.0 RDW 17.9 H Plt Count 254 MPV 7.6 Neut % (Auto) 52.1 Lymph % (Auto) 30.9 [place] % (Auto) 12.2 H Eos % (Auto) 4.5 H Baso % (Auto) 0.3 Neut # (Auto) 1.9 Lymph # (Auto) 1.1 [place] # (Auto) 0.4 Eos # (Auto) 0.2 Baso # (Auto) 0.0 WBC Differential . Differential Comment Auto diff final Sodium 142 Potassium 3.8 Chloride 107 Carbon Dioxide 27.0 Anion Gap 8 BUN 13 Creatinine 1.04 H Estimated GFR 61 L Random Glucose 78 Calcium 8.2 L Total Bilirubin 0.2 AST 41 H ALT 60 H Alkaline Phosphatase 160 H Total Protein 6.2 L D Albumin 2.1 L D <Sharla Valle - Last Filed: 05/21/18 10:58> - Labs CBC & Chem 7: 05/21/18 13:06 05/21/18 03:50 Labs: Laboratory Results - last 24 hr 05/21/18 05/21/18 05/21/18 03:50 03:50 13:06 WBC 3.6 L 3.6 L RBC 3.08 L 3.50 L Hgb 9.0 L D 10.1 L Hct 27.3 L 31.4 L MCV 88.7 89.7 MCH 29.3 28.9 MCHC 33.0 32.2 RDW 17.9 H 17.8 H Plt Count 254 280 MPV 7.6 7.2 Neut % (Auto) 52.1 Lymph % (Auto) 30.9 [place] % (Auto) 12.2 H Eos % (Auto) 4.5 H Baso % (Auto) 0.3 Neut # (Auto) 1.9 Lymph # (Auto) 1.1 [place] # (Auto) 0.4 Eos # (Auto) 0.2 Baso # (Auto) 0.0 WBC Differential . Differential Comment Auto diff final Sodium 142 Potassium 3.8 Chloride 107 Carbon Dioxide 27.0 Anion Gap 8 BUN 13 Creatinine 1.04 H Estimated GFR 61 L Random Glucose 78 Calcium 8.2 L Total Bilirubin 0.2 AST 41 H ALT 60 H Alkaline Phosphatase 160 H Total Protein 6.2 L D Albumin 2.1 L D <Lu Valdovinos - Last Filed: 05/21/18 17:09> Assessment and Plan (1) H/O gastroesophageal reflux (GERD) Status: Chronic Code(s): Z87.19 - Personal history of other diseases of the digestive system (2) Anemia Status: Chronic Code(s): D64.9 - Anemia, unspecified (3) Intractable nausea and vomiting Status: Acute Code(s): R11.2 - Nausea with vomiting, unspecified (4) Abdominal pain Status: Acute Code(s): R10.9 - Unspecified abdominal pain (5) Diverticula of intestine Status: Acute Code(s): K57.30 - Diverticulosis of large intestine without perforation or abscess without bleeding - Plan Ms. Levine is an 82-year-old female patient with a past medical history of hypertension, hyperlipidemia, hypothyroidism, neuropathy , chronic anemia and GERD. Past surgical history includes hysterectomy and cholecystectomy. Our practice has been consulted to evaluate patient for history of diverticulosis with prior GI bleed, admitted to the hospital for intractable nausea and vomiting. CT showed fat stranding around diverticula and she has been empirically treated for diverticulitis. Patient's discomfort is epigastric and radiates to both right and left upper quadrants with 2 cm common bile duct dilation noted on CT. Patient is reporting early satiety, epigastric discomfort and nausea despite 2 days of IV antibiotics, IV fluids and antiemetics. Hemoglobin has gone from 11.6-9.0 with negative stool Hemoccult. Patient presented to the emergency room with complaint of epigastric pain after eating onset 2 days ago she describes pain as sharp and burning, states that it is intermittent and rates same at 6 out of 10 at this time. Patient states that the pain radiates to both left and right upper quadrants of abdomen. She is unable to solidify any alleviating or aggravating factors. She denies use of aspirin or NSAIDs. Denies smoking or use of EtOH. Denies any known family history for gastrointestinal diseases/disorders. States her last colonoscopy with EGD was done 8 months ago and per her recollection she was diagnosed with gastritis. Patient states she vomited 4-5 times prior to being admitted to the hospital 2 days ago. She describes the emesis as being yellow and better tasting with no noted blood. Patient denies any difficulty swallowing, reports heartburn 1-2 times weekly. Currently taking pantoprazole 40 mg p.o. twice daily. Patient with known history of diverticulitis and states her eldest daughter has history of same. Patient states she is normally constipated and moves her bowels every 3-4 days, hardened brown stool. States when she takes stool softener she is able to have a soft brown BM. Denies any blood or mucus noted. Patient denies any rectal bleeding and reports that she has been evaluated with [facility] in the past. Discussed possible need for EGD. Patient verbalizes agreement and understanding. Gerd Patient reports history of gastric esophageal reflux disease. Reports she takes pantoprazole 40 mg p.o. twice daily but will occasionally experience epigastric pain with burning sensation that radiates up into her throat. Anemia Hemoglobin 9.0 hematocrit 27.3. (05/19/18) hemoglobin 11.6 hematocrit 34.0. Patient denies any noted bleeding. Denies blood noted in emesis. Stool Hemoccult negative at bedside. Intractable nausea vomiting Patient reporting intermittent nausea. States she was able to tolerate breakfast this a.m. without nausea or vomiting. Diverticulitis Patient has history of diverticulitis. Denies any fever or chills, denies lower abdominal pain. 05/19/18 CT of abdomen and pelvis revealed the following-- > . Numerous colonic diverticula are again seen. Multiple nonspecific stranding opacity is seen in the abdominal fat adjacent to the colon but no definitive acute diverticulitis. Diffuse dilatation of the common duct again seen, measuring 2 cm in diameter, unchanged. 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 Slight increase in size when compared to the prior study of February 2017. Patient afebrile with T-max noted 100 F on admission. Plan -Regular diet as tolerated -Obtain consent for EGD -NPO after Midnight -Bowel regimen -Continue Reglan his antiemetic -Continue PPI -Zofran as needed nausea -Analgesia and IV hydration as per attending -Monitor for bleeding -Monitor labs -Supportive care -Further recommendations to follow based on patient's status and findings This patient has been seen by myself and and this note is written on her behalf - Attending Attestation Dr. Valdovinos <Sharla Valle - Last Filed: 05/21/18 10:58> (1) H/O gastroesophageal reflux (GERD) Status: Chronic Code(s): Z87.19 - Personal history of other diseases of the digestive system (2) Anemia Status: Chronic Code(s): D64.9 - Anemia, unspecified (3) Intractable nausea and vomiting Status: Acute Code(s): R11.2 - Nausea with vomiting, unspecified (4) Abdominal pain Status: Acute Code(s): R10.9 - Unspecified abdominal pain (5) Diverticula of intestine Status: Acute Code(s): K57.30 - Diverticulosis of large intestine without perforation or abscess without bleeding - Attending Attestation seen, examined agree with above elevated lfts, dilated cbd-mrcp with no contrast if not possible abd us <Lu Valdovinos - Last Filed: 05/21/18 17:09> <Sharla Valle - Last Filed: 05/21/18 10:58> (2) Anemia Qualifiers: Anemia type: unspecified type Qualified Code(s): D64.9 - Anemia, unspecified <Lu Valdovinos - Last Filed: 05/21/18 17:09> (2) Anemia Qualifiers: Anemia type: unspecified type Qualified Code(s): D64.9 - Anemia, unspecified
[2018-05-21] MEDS: Sod Chloride 0.9% Inj 1,000 ML IV.CONT SCH ×2 (11:07→17:26)
[2018-05-21] MEDS: Verapamil SR 240 MG Tablet PO SCH ×2 (11:08→21:34)
[2018-05-21] MEDS: Gabapentin 300 MG Capsule PO SCH ×3 (11:08→17:27)
[2018-05-21] MEDS: Divalproex 250 MG DR Tablet PO SCH ×2 (11:09→21:34)
[2018-05-21] MEDS: Heparin - SQ 10,000 UNITS/ML Vial SQ SCH ×2 (11:09→21:34)
[2018-05-21] MEDS: Metoclopramide 10 MG Tablet PO SCH ×3 (11:09→17:27)
[2018-05-21] MEDS: Senna/Docusate Sodium 8.6/50 MG Tablet PO SCH ×2 (11:09→21:34)
[2018-05-21 13:15] LABS: Hematocrit 31.4 % (35.0-46.0); Hemoglobin 10.1 gm/dL (11.6-15.3); Mean Corpuscular HGB Conc 32.2 % (32.0-36.0); Mean Corpuscular Hemoglobin 28.9 pg (27.0-34.0); Mean Corpuscular Volume 89.7 fL (80.0-100.0); Mean Platelet Volume 7.2 fL (7.0-11.0); Platelet Count 280 th/mm3 (150-450); Red Cell Distribution Width 17.8 % (11.6-17.2); White Blood Count 3.6 th/mm3 (4.0-11.0)
[2018-05-22] MEDS ORDERED: Metoprolol Tartrate 25 MG Tablet PO ONE (00:50)
[2018-05-22] MEDS ORDERED: Chlorhexidine Gluconate 2% 1 Pack (2 Cloths) TOPICAL ONE (00:50)
[2018-05-22] MEDS ORDERED: Sodium Chlor 0.9% Inj 500 ML IV.SIG SCH (01:00)
[2018-05-22] MEDS: Ciprofloxacin 400 MG/200 ML 400 MG/200 ML PIGGYBACK IV.SIG SCH ×2 (03:21→13:41)
[2018-05-22] MEDS: Levothyroxine 100 MCG Tablet PO SCH (07:00)
[2018-05-22 07:40] LABS: Hematocrit 33.1 % (35.0-46.0); Hemoglobin 10.4 gm/dL (11.6-15.3); Mean Corpuscular HGB Conc 31.3 % (32.0-36.0); Mean Corpuscular Hemoglobin 28.1 pg (27.0-34.0); Mean Corpuscular Volume 89.6 fL (80.0-100.0); Mean Platelet Volume 7.5 fL (7.0-11.0); Platelet Count 284 th/mm3 (150-450); Red Cell Distribution Width 17.8 % (11.6-17.2); White Blood Count 5.8 th/mm3 (4.0-11.0)
[2018-05-22 08:09] LABS: Albumin 2.6 g/dL (3.4-5.0); Anion Gap 8 meq/L (5-15); Calcium 8.8 mg/dL (8.5-10.1); Carbon Dioxide 29.3 meq/L (21.0-32.0); Chloride 105 meq/L (98-107); Glucose,Random 83 mg/dL (74-106); Potassium 3.5 meq/L (3.5-5.1); Sodium 142 meq/L (136-145)
[2018-05-22 08:20] LABS: Alanine Aminotransferase 49 U/L (10-53); Alkaline Phosphatase 159 U/L (45-117); Aspartate Aminotransferase 26 U/L (15-37); Blood Urea Nitrogen 10 mg/dL (7-18); Glomerular Filtration Rate 58 mL/min (>89); Total Protein 7.3 g/dL (6.4-8.2)
[2018-05-22] MEDS: Verapamil SR 240 MG Tablet PO SCH ×2 (09:11→20:50)
[2018-05-22] MEDS: Divalproex 250 MG DR Tablet PO SCH ×2 (09:12→20:50)
[2018-05-22] MEDS: Metoclopramide 10 MG Tablet PO SCH ×3 (09:12→17:22)
[2018-05-22] MEDS: Senna/Docusate Sodium 8.6/50 MG Tablet PO SCH ×2 (09:12→20:51)
[2018-05-22] MEDS: Gabapentin 300 MG Capsule PO SCH ×3 (09:12→18:31)
--- NOTE | 2018-05-22 09:14 | MR ---
EXAM DATE: 05/22/2018 7:01 AM EDT AGE/SEX: 82 years / Female INDICATIONS: Abdominal pain. Nausea and vomiting. CLINICAL DATA: This is the patient's subsequent encounter. Patient reports that signs and symptoms h ave been present for 3 days and indicates a pain score of 3/10. MEDICAL/SURGICAL HISTORY: Hypertension. Gastroesophageal reflux disease. Umbilical hernia repa ir. COMPARISON: [facility] [place], CT ABDOMEN & PELVIS W/O CONTRAST, 05/19/2018. . TECHNIQUE: Multiplanar, multisequence images of the abdomen were obtained without contrast including dedicated cholangiographic images. FINDINGS: There is moderate intra and extra hepatic biliary ductal dilatation again noted with common duct diam eter of approximately 17 mm. The pancreatic duct is also mildly dilated throughout. There is no defin ite stone or mass identified. A small ampullary mass or stricture cannot be excluded. Elsewhere, a 13 mm T2 hyperintense lesion in the anterior left lobe liver adjacent to falciform ligam ent appears unchanged dating back to CT exams from 2016. Left adrenal nodules appear stable. Multiple small bilateral renal cysts are noted. There is no evidence of regional adenopathy. Mesh anterior ab dominal wall repair is noted. Bowel structures are normal in caliber. Bony elements appear grossly be nign. CONCLUSION: Moderate biliary ductal dilatation appears grossly stable. Electronically signed by: Betito Tejada MD 05/22/2018 9:13 AM EDT
--- NOTE | 2018-05-22 09:15 | P.PN ---
Subjective Interval history: Follow-up for epigastric pain. Patient reports feeling slightly better today. She denies any current epigastric pain. She reports occasional bouts of nausea , but no vomiting. She reports multiple episodes of diarrhea overnight. She has returned from her MRCP, complaining of a mild headache due to the loud noises of the MRI machine and lack of sleep overnight. She reports she has been eating small amounts of her meals, states her appetite is diminished a bit. Denies any fevers or chills. Denies any other medical complaints at this time. Physical Exam Vital signs: Vital Signs 05/21/18 10:57 05/21/18 16:00 05/21/18 20:00 Temperature 98.8 F 98.7 F 98.0 F Pulse Rate 72 62 77 Respiratory Rate 16 16 16 Blood Pressure 155/72 H 132/61 178/88 H Pulse Oximetry 97 97 95 05/22/18 00:00 05/22/18 04:00 05/22/18 07:35 Temperature 98.0 F 97.6 F 97.6 F Pulse Rate 72 81 75 Respiratory Rate 16 16 20 Blood Pressure 150/72 H 169/94 H 142/77 H Pulse Oximetry 94 L 96 96 Intake & Output 05/21/18 05/22/18 05/22/18 18:59 06:59 18:59 Intake Total 1200 / 1200 200 / 200 Balance 1200 / 1200 200 / 200 Intake: IV 1200 / 1200 200 / 200 NS Inj 1,000 ML @ 100 mls/hr IV 1000 / 1000 .CONT .Q10H [facility] Rx#:[id number] Cipro 400 MG/200 ML Inj 400 mg 200 / 200 200 / 200 In 200 ml @ 200 mls/hr IV.SIG Q12H [facility] Rx#:[id number] Other: # Voids 3 Date of Last Bowel Movement 05/21/18 Narrative: GENERAL: Well-nourished, well-developed pleasant elderly AA female patient in NAD. SKIN: Warm and dry. No rash. HEENT: Normocephalic. Atraumatic. Pupils equal and round. Mucous membranes pink and moist. CARDIOVASCULAR: Regular rate and rhythm. No murmur appreciated. RESPIRATORY: No accessory muscle use. Clear to auscultation. Breath sounds equal bilaterally. GASTROINTESTINAL: Abdomen soft, nondistended, nontender. Normoactive bowel sounds x4. MUSCULOSKELETAL: No obvious deformities. Extremities without clubbing, cyanosis , or edema. NEUROLOGICAL: Awake and alert. No obvious cranial nerve deficits. Motor grossly within normal limits. Moving all extremities spontaneously. Normal speech. PSYCHIATRIC: Appropriate mood and affect; insight and judgment normal. Results - Labs CBC & Chem 7: 05/22/18 06:40 05/22/18 06:20 Laboratory Results - last 24 hr 05/21/18 05/22/18 05/22/18 13:06 06:20 06:40 WBC 3.6 L 5.8 D RBC 3.50 L 3.70 L Hgb 10.1 L 10.4 L Hct 31.4 L 33.1 L MCV 89.7 89.6 MCH 28.9 28.1 MCHC 32.2 31.3 L RDW 17.8 H 17.8 H Plt Count 280 284 MPV 7.2 7.5 Sodium 142 Potassium 3.5 Chloride 105 Carbon Dioxide 29.3 Anion Gap 8 BUN 10 Creatinine 1.10 H Estimated GFR 58 L Random Glucose 83 Calcium 8.8 Total Bilirubin 0.2 AST 26 ALT 49 Alkaline Phosphatase 159 H Total Protein 7.3 D Albumin 2.6 L - Imaging Abdomen/Pelvis CT 05/19/18 19:49 CONCLUSION: 1. Numerous colonic diverticula are again seen. Multiple nonspecific stranding opacity is seen in the abdominal fat adjacent to the colon but no definitive acute diverticulitis. 2. Diffuse dilatation of the common duct again seen, measuring 2 cm in diameter , unchanged. 3. 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 Slight increase in size when compared to the prior study of February 2017. Chest X-Ray 05/19/18 19:49 CONCLUSION: No acute cardiopulmonary disease identified. Head CT 05/19/18 19:52 CONCLUSION: No acute intracranial findings. . Cholangiopancreatography MRI 05/22/18 07:01 CONCLUSION: Moderate biliary ductal dilatation appears grossly stable. - Procedures 05/22/18EGD by Dr. Valdovinos: IMPRESSIONS: 1. Gastritis antrum, body-biopsy duodenum normal-biopsy esophagitis distal esophagus-biopsy 2. Retroflexed views revealed a hiatal hernia RECOMMENDATIONS: 1. Await biopsy results. Biopsy results will not be ready for 7-10 days. If you don't hear from us in two weeks, call our office for biopsy results. 2. Anti-reflux regimen 3. Continue PPI 4. Trial of liquid Carafate , Reglan EUS op gastric emptying study if not better full liquid diet Assessment and Plan - Assessment (1) Physical deconditioning Code(s): R53.81 - Other malaise Status: Acute - Plan 82 year old female with CKD, HTN, HLD, hypothyroidism, diverticulosis, and GERD admitted overnight for evaluation of abdominal pain, nausea, and vomiting. Epigastric Pain with Intractable nausea and vomiting: currently Vomiting resolved but pt still nauseous, decreased PO intake, and complaining of epigastric/RUQ "sickness" - CT A/P on admission showing numerous colonic diverticula with some surrounding fat stranding but no definitive acute diverticulitis. There was also diffuse dilation of the CBD unchanged from prior study as well as an 11 cm midline pelvic mass displacing the bladder that slightly increased in size when compared to prior study in 2017 - U/A negative - Continue IV fluids - ADAT - Antiemetics - Consult GI since patient's symptoms are still persisting, LFTs going up slightly, Hb going slightly down, and patient with CBD dilation - MRCP 05/22 showed Moderate biliary ductal dilatation appears grossly stable. - EGD 05/22 showed gastritis/esophagitis/hiatal hernia, GI recommended PPI, trial of Carafate and Reglan - Diet advanced to full liquids - Consider gastric emptying study if not improved Possible early diverticulitis: Patient does not have lower abdominal tenderness , diarrhea, or leukocytosis however on CT A/P there was possible early findings of diverticulitis and she had been empirically started on Flagyl and Cipro - Will continue Cipro for now but will discontinue Flagyl since LFTs are rising and patient complaining of headache - Consulting GI as above - Hemoccult negative Normocytic Anemia: Hb went from 11.6 to 9.0 in less than 48 hours - Bedside Hemoccult negative - No obvious bleeding - Repeat CBC shows improvement with Hgb 10.4 today, suspect likely dilutional Leukopenia: WBC dropped from 7.1 to 3.6 which could partly be dilutional from fluids but could also be a side effect of the Flagyl which has been stopped - Repeat CBC improved with WBC 5.8K - Afebrile CKD, stage II-III: Creatinine 1.31 on admission, unchanged from March 2018 - Improved to 1.04 s/p IV hydration - Monitor I/O - Avoid nephrotoxic agents - stable HTN/HLD: BPs stable - Continue home metoprolol, verapamil, statin - Clonidine PRN - Continue to monitor Hypothyroidism: chronic - Continue home Levothyroxine GERD: chronic - Continue home PPI Headache - Likely secondary to nausea/vomiting and decreased PO intake but Flagyl could have also been contributing - CT head with no acute findings - Pain control - IV fluids - improving Pelvic mass - Correction from prior note as today patient notes this is chronic and has been worked up as a benign mass near or on her bladder - Unlikely to be the cause of her symptoms - Follow up as outpatient DVT prophylaxis: heparin sq Discharge Planning: Discharge pending further clinical improvement. Possible discharge 05/23.
[2018-05-22] MEDS: Sod Chloride 0.9% Inj 1,000 ML IV.CONT SCH ×2 (11:06→13:42)
[2018-05-22] MEDS ORDERED: Lidocaine PF 1% Inj 5 ML Syringe OTHER ONE (11:31)
[2018-05-22] MEDS ORDERED: Succinylcholine Inj 100 MG/5 ML Syringe IV.PUSH ONE (11:31)
--- NOTE | 2018-05-22 11:53 | GIPROC ---
[facility] [address] [facility]. [facility], [address] EGD PROCEDURE REPORT EXAM DATE: 05/22/2018 PATIENT NAME: Dorys Levine MR #: [id number] BIRTHDATE: 1935 ATTENDING: Lu Valdovinos MD ORDER #: [id number] MANAGER MEDICARE MARKETING: Katt Rubio and Cynthia Monte STATUS: inpatient INDICATIONS: The patient is a 82 yr old female here for an EGD due to nausea, abdominal pain PROCEDURE PERFORMED: EGD w/ biopsy MEDICATIONS: None and Per Anesthesia. TOPICAL ANESTHETIC: none CONSENT: The patient understands the risks and benefits of the procedure and understands that these risks include, but are not limited to: sedation, allergic reaction, infection, perforation and/or bleeding. Alternative means of evaluation and treatment include, among others: physical exam, x-rays, and/or surgical intervention. The patient elects to proceed with this endoscopic procedure. medical equipment was checked for proper function. Hand hygiene and appropriate measures for infection prevention was taken. After the risks, benefits and alternatives of the procedure were thoroughly explained, Informed consent was verified, confirmed and timeout was successfully executed by the treatment team. The patient was anesthetized with topical anesthesia and the Pentax EG-[id number] endoscope was introduced through the mouth and advanced to the second portion of the duodenum. Retroflexed views revealed a hiatal hernia The gastroscope was then slowly withdrawn and removed. Gastritis antrum, body-biopsy duodenum normal-biopsy esophagitis distal esophagus-biopsy. ADVERSE EVENTS: There were no complications. IMPRESSIONS: 1. Gastritis antrum, body-biopsy duodenum normal-biopsy esophagitis distal esophagus-biopsy 2. Retroflexed views revealed a hiatal hernia RECOMMENDATIONS: 1. Await biopsy results. Biopsy results will not be ready for 7-10 days. If you don't hear from us in two weeks, call our office for biopsy results. 2. Anti-reflux regimen 3. Continue PPI 4. Trial of liquid Carafate , Reglan EUS op gastric emptying study if not better full liquid diet PATIENT CONDITION: stable DISPOSITION: Inpatient REPEAT EXAM: Return 1 year EGD Lu Valdovinos MD eSigned: Lu Valdovinos MD 05/22/2018 11:52 AM cc: PATIENT NAME: Dorys Levine MR#: [id number]
[2018-05-22] MEDS: Sucralfate Liq 1 GM/10 ML UDC PO SCH ×2 (13:52→22:00)
[2018-05-22] MEDS: Heparin - SQ 10,000 UNITS/ML Vial SQ SCH (20:51)
[2018-05-23] MEDS: Sod Chloride 0.9% Inj 1,000 ML IV.CONT SCH ×3 (00:11→18:49)
[2018-05-23] MEDS: Ciprofloxacin 400 MG/200 ML 400 MG/200 ML PIGGYBACK IV.SIG SCH ×2 (00:11→13:53)
[2018-05-23] MEDS: Levothyroxine 100 MCG Tablet PO SCH (06:46)
[2018-05-23] MEDS: Sucralfate Liq 1 GM/10 ML UDC PO SCH ×2 (06:46→13:54)
[2018-05-23] MEDS: Divalproex 250 MG DR Tablet PO SCH ×2 (09:21→20:38)
[2018-05-23] MEDS: Gabapentin 300 MG Capsule PO SCH ×3 (09:22→18:45)
[2018-05-23] MEDS: Verapamil SR 240 MG Tablet PO SCH ×2 (09:22→20:37)
[2018-05-23] MEDS: Heparin - SQ 10,000 UNITS/ML Vial SQ SCH ×2 (09:23→20:38)
[2018-05-23] MEDS: Metoclopramide 10 MG Tablet PO SCH ×3 (09:26→18:45)
[2018-05-23] MEDS: Senna/Docusate Sodium 8.6/50 MG Tablet PO SCH ×2 (09:26→20:38)
--- NOTE | 2018-05-23 11:17 | P.PN ---
Subjective Interval history: Follow-up for epigastric pain. Patient indicates that discomfort is not so much pain, she feels full after eating, feels that food just sits in her stomach. Although her symptoms are much better compared to when she came in. No nausea, no vomiting. Has not had a bowel movement since 2 nights ago when she had multiple. N.p.o., going for gastric emptying test. No chest pain, shortness of breath, no fever. Physical Exam Vital signs: Vital Signs 05/22/18 12:07 05/22/18 12:15 05/22/18 12:30 Temperature 98.1 F Pulse Rate 79 76 69 Respiratory Rate 22 22 22 Blood Pressure 135/71 134/70 133/72 Pulse Oximetry 99 94 L 94 L 05/22/18 12:45 05/22/18 15:39 05/22/18 20:00 Temperature 98.2 F 98.4 F 98.3 F Pulse Rate 68 67 70 Respiratory Rate 24 18 15 Blood Pressure 135/75 157/86 H 154/77 H Pulse Oximetry 94 L 97 97 05/23/18 00:00 05/23/18 08:00 Temperature 98.5 F 97.9 F Pulse Rate 70 71 Respiratory Rate 17 19 Blood Pressure 150/67 H 141/65 H Pulse Oximetry 98 93 L Intake & Output 05/22/18 05/23/18 05/23/18 18:59 06:59 18:59 Intake Total 650 / 650 1700 / 1700 1000 / 1000 Output Total 0 / 0 Balance 650 / 650 1700 / 1700 1000 / 1000 Intake: IV 400 / 400 1200 / 1200 1000 / 1000 NS Inj 1,000 ML @ 100 mls/hr IV 1000 / 1000 1000 / 1000 .CONT .Q10H [facility] Rx#:[id number] Cipro 400 MG/200 ML Inj 400 mg 400 / 400 200 / 200 In 200 ml @ 200 mls/hr IV.SIG Q12H [facility] Rx#:[id number] Oral 0 / 0 500 / 500 Anesthesia Amount 250 / 250 Output: Urine 0 / 0 Other: # Voids 4 Date of Last Bowel Movement 05/22/18 05/22/18 Narrative: GENERAL: Well-nourished, well-developed pleasant elderly AA female patient in NAD. SKIN: Warm and dry. No rash. HEENT: Normocephalic. Atraumatic. Pupils equal and round. Mucous membranes pink and moist. CARDIOVASCULAR: Regular rate and rhythm. No murmur appreciated. RESPIRATORY: No accessory muscle use. Clear to auscultation. Breath sounds equal bilaterally. GASTROINTESTINAL: Abdomen soft, nondistended, nontender. Normoactive bowel sounds x4. MUSCULOSKELETAL: No obvious deformities. Extremities without clubbing, cyanosis , or edema. NEUROLOGICAL: Awake and alert. No obvious cranial nerve deficits. Motor grossly within normal limits. Moving all extremities spontaneously. Normal speech. PSYCHIATRIC: Appropriate mood and affect; insight and judgment normal. Results - Labs CBC & Chem 7: 05/22/18 06:40 05/22/18 06:20 - Procedures 05/22/18EGD by Dr. Valdovinos: IMPRESSIONS: 1. Gastritis antrum, body-biopsy duodenum normal-biopsy esophagitis distal esophagus-biopsy 2. Retroflexed views revealed a hiatal hernia RECOMMENDATIONS: 1. Await biopsy results. Biopsy results will not be ready for 7-10 days. If you don't hear from us in two weeks, call our office for biopsy results. 2. Anti-reflux regimen 3. Continue PPI 4. Trial of liquid Carafate , Reglan EUS op gastric emptying study if not better full liquid diet Assessment and Plan - Assessment (1) Physical deconditioning Code(s): R53.81 - Other malaise Status: Acute - Plan 82 year old female with CKD, HTN, HLD, hypothyroidism, diverticulosis, and GERD admitted overnight for evaluation of abdominal pain, nausea, and vomiting. Epigastric Pain with Intractable nausea and vomiting: currently Vomiting resolved but pt still nauseous, decreased PO intake, and complaining of epigastric/RUQ "sickness" - CT A/P on admission showing numerous colonic diverticula with some surrounding fat stranding but no definitive acute diverticulitis. There was also diffuse dilation of the CBD unchanged from prior study as well as an 11 cm midline pelvic mass displacing the bladder that slightly increased in size when compared to prior study in 2017 - U/A negative - Continue IV fluids - Antiemetics - Consult GI since patient's symptoms are still persisting, LFTs going up slightly, Hb going slightly down, and patient with CBD dilation - MRCP 05/22 showed Moderate biliary ductal dilatation appears grossly stable. - EGD 05/22 showed gastritis/esophagitis/hiatal hernia, GI recommended PPI, trial of Carafate and Reglan -Advance diet as tolerated. -Going for gastric emptying study today. We will follow-up on results. Possible early diverticulitis: Patient does not have lower abdominal tenderness , diarrhea, or leukocytosis however on CT A/P there was possible early findings of diverticulitis and she had been empirically started on Flagyl and Cipro - Will continue Cipro for now Flagyl was discontinued since LFTs were rising and patient complaining of headache - Consulting GI as above - Hemoccult negative Normocytic Anemia: Hb went from 11.6 to 9.0 in less than 48 hours - Bedside Hemoccult negative - No obvious bleeding - Repeat CBC shows improvement with Hgb 10.4 today, suspect likely dilutional Leukopenia: WBC dropped from 7.1 to 3.6 which could partly be dilutional from fluids but could also be a side effect of the Flagyl which has been stopped - Repeat CBC improved with WBC 5.8K - Afebrile CKD, stage II-III: Creatinine 1.31 on admission, unchanged from March 2018 - Improved to 1.04 s/p IV hydration - Monitor I/O - Avoid nephrotoxic agents - stable HTN/HLD: BPs stable - Continue home metoprolol, verapamil, statin - Clonidine PRN - Continue to monitor Hypothyroidism: chronic - Continue home Levothyroxine GERD: chronic - Continue home PPI Headache - Likely secondary to nausea/vomiting and decreased PO intake but Flagyl could have also been contributing - CT head with no acute findings - Pain control - IV fluids - improving Pelvic mass - Correction from prior note as today patient notes this is chronic and has been worked up as a benign mass near or on her bladder - Unlikely to be the cause of her symptoms - Follow up as outpatient DVT prophylaxis: heparin sq CMP in the morning CM for discharge planning Code Status: Full code Discussed Condition With: RN, patient Discharge Planning: Possible discharge 1-2 days when cleared by GI.
--- NOTE | 2018-05-23 13:34 | NM ---
EXAM DATE: 05/23/2018 9:45 AM EDT AGE/SEX: 82 years / Female INDICATIONS: Nausea, vomiting and abdominal pain. CLINICAL DATA: This is the patient's initial encounter. Patient reports that signs and symptoms have been present for 1 day and indicates a pain score of 4/10. MEDICAL/SURGICAL HISTORY: Gastroesophageal reflux disease. Hypertension. Hypothyroidism. Ingu inal hernia repair. COMPARISON: No prior exams available for comparison. DOSE: 1.0 mCi Tc99m Sulfur Colloid Labeled Whole Egg PO MEDICATION: 5 mg Reglan IV at 90 minutes. IMAGING TIME: 2 hr TECHNIQUE: Following the oral ingestion of radiotracer-labeled meal, dynamic sequential images in the OMANI projection were acquired with simultaneous computer acquisition. The data set was decay-correcte d. FINDINGS: There is a long delay NM Gastric Emptying with a lag phase of over 60 minutes. There is no accelerati on with Reglan. T1 half is greater than 90 minutes. CONCLUSION: 1. Moderately delayed gastric emptying with T1 half greater than 90 minutes. No response to Reglan. Electronically signed by: Castro Alvarez MD 05/23/2018 1:33 PM EDT
--- NOTE | 2018-05-23 18:31 | P.PNGI ---
Subjective Interval history: Patient sitting up in chair. States tolerating liquid diet well. Post gastric emptying study, patient denies nausea or vomiting and reports less abdominal discomfort. <Sharla Valle - Last Filed: 05/23/18 18:27> Physical Exam Vital signs: Vital Signs 05/22/18 20:00 05/23/18 00:00 05/23/18 08:00 Temperature 98.3 F 98.5 F 97.9 F Pulse Rate 70 70 71 Respiratory Rate 15 17 19 Blood Pressure 154/77 H 150/67 H 141/65 H Pulse Oximetry 97 98 93 L 05/23/18 12:00 Temperature 97.8 F Pulse Rate 67 Respiratory Rate 18 Blood Pressure 155/70 H Pulse Oximetry 95 Intake & Output 05/22/18 05/23/18 05/23/18 18:59 06:59 18:59 Intake Total 650 / 650 1700 / 1700 1000 / 1000 Output Total 0 / 0 Balance 650 / 650 1700 / 1700 1000 / 1000 Intake: IV 400 / 400 1200 / 1200 1000 / 1000 NS Inj 1,000 ML @ 100 mls/hr IV 1000 / 1000 1000 / 1000 .CONT .Q10H [facility] Rx#:[id number] Cipro 400 MG/200 ML Inj 400 mg 400 / 400 200 / 200 In 200 ml @ 200 mls/hr IV.SIG Q12H [facility] Rx#:[id number] Oral 0 / 0 500 / 500 Anesthesia Amount 250 / 250 Output: Urine 0 / 0 Other: # Voids 4 Date of Last Bowel Movement 05/22/18 05/22/18 05/22/18 - Constitutional no acute distress - Routine HEENT Exam Head: Present: normocephalic - Routine Respiratory Exam Present: CTA bilaterally. Absent: accessory muscle use - Routine Abdominal Exam Present: soft, normoactive bowel sounds, distended. Absent: tenderness, guarding, firm - Routine Skin Exam Present: dry, warm - Routine Neurological Exam Present: alert, oriented X3 - Routine Psychiatric Exam Present: normal affect, cooperative <Sharla Valle - Last Filed: 05/23/18 18:27> Vital signs: Vital Signs 05/23/18 00:00 05/23/18 08:00 05/23/18 12:00 Temperature 98.5 F 97.9 F 97.8 F Pulse Rate 70 71 67 Respiratory Rate 17 19 18 Blood Pressure 150/67 H 141/65 H 155/70 H Pulse Oximetry 98 93 L 95 05/23/18 16:00 Temperature 98.3 F Pulse Rate 69 Respiratory Rate 18 Blood Pressure 150/84 H Pulse Oximetry 97 Intake & Output 05/23/18 05/23/18 05/24/18 06:59 18:59 06:59 Intake Total 1700 / 1700 2200 / 2200 Balance 1700 / 1700 2200 / 2200 Intake: IV 1200 / 1200 2200 / 2200 NS Inj 1,000 ML @ 100 mls/hr IV 1000 / 1000 2000 / 2000 .CONT .Q10H [facility] Rx#:[id number] Cipro 400 MG/200 ML Inj 400 mg 200 / 200 200 / 200 In 200 ml @ 200 mls/hr IV.SIG Q12H [facility] Rx#:[id number] Oral 500 / 500 Other: # Voids 4 Date of Last Bowel Movement 05/22/18 05/22/18 <Lu Valdovinos - Last Filed: 05/23/18 20:53> Results - Labs CBC & Chem 7: 05/22/18 06:40 05/22/18 06:20 - Imaging Impressions Gastric Emptying Nuclear Medicine 05/23/18 00:00 CONCLUSION: 1. Moderately delayed gastric emptying with T1 half greater than 90 minutes. No response to Reglan. - Procedures 05/22/18EGD by Dr. Valdovinos: IMPRESSIONS: 1. Gastritis antrum, body-biopsy duodenum normal-biopsy esophagitis distal esophagus-biopsy 2. Retroflexed views revealed a hiatal hernia RECOMMENDATIONS: 1. Await biopsy results. Biopsy results will not be ready for 7-10 days. If you don't hear from us in two weeks, call our office for biopsy results. 2. Anti-reflux regimen 3. Continue PPI 4. Trial of liquid Carafate , Reglan EUS op gastric emptying study if not better full liquid diet <Sharla Valle - Last Filed: 05/23/18 18:27> - Labs CBC & Chem 7: 05/22/18 06:40 05/22/18 06:20 - Imaging Impressions Gastric Emptying Nuclear Medicine 05/23/18 00:00 CONCLUSION: 1. Moderately delayed gastric emptying with T1 half greater than 90 minutes. No response to Reglan. <Lu Valdovinos - Last Filed: 05/23/18 20:53> Assessment and Plan (1) H/O gastroesophageal reflux (GERD) Status: Chronic Code(s): Z87.19 - Personal history of other diseases of the digestive system (2) Anemia Status: Chronic Code(s): D64.9 - Anemia, unspecified (3) Intractable nausea and vomiting Status: Acute Code(s): R11.2 - Nausea with vomiting, unspecified (4) Abdominal pain Status: Acute Code(s): R10.9 - Unspecified abdominal pain (5) Diverticula of intestine Status: Acute Code(s): K57.30 - Diverticulosis of large intestine without perforation or abscess without bleeding - Plan Ms. Levine is an 82-year-old female patient with a past medical history of hypertension, hyperlipidemia, hypothyroidism, neuropathy , chronic anemia and GERD. Past surgical history includes hysterectomy and cholecystectomy. Our practice has been consulted to evaluate patient for history of diverticulosis with prior GI bleed, admitted to the hospital for intractable nausea and vomiting. CT showed fat stranding around diverticula and she has been empirically treated for diverticulitis. Patient's discomfort is epigastric and radiates to both right and left upper quadrants with 2 cm common bile duct dilation noted on CT. Patient is reporting early satiety, epigastric discomfort and nausea despite 2 days of IV antibiotics, IV fluids and antiemetics. Hemoglobin has gone from 11.6-9.0 with negative stool Hemoccult. Patient presented to the emergency room with complaint of epigastric pain after eating onset 2 days ago she describes pain as sharp and burning, states that it is intermittent and rates same at 6 out of 10 at this time. Patient states that the pain radiates to both left and right upper quadrants of abdomen. She is unable to solidify any alleviating or aggravating factors. She denies use of aspirin or NSAIDs. Denies smoking or use of EtOH. Denies any known family history for gastrointestinal diseases/disorders. States her last colonoscopy with EGD was done 8 months ago and per her recollection she was diagnosed with gastritis. Patient states she vomited 4-5 times prior to being admitted to the hospital 2 days ago. She describes the emesis as being yellow and better tasting with no noted blood. Patient denies any difficulty swallowing, reports heartburn 1-2 times weekly. Currently taking pantoprazole 40 mg p.o. twice daily. Patient with known history of diverticulitis and states her eldest daughter has history of same. Patient states she is normally constipated and moves her bowels every 3-4 days, hardened brown stool. States when she takes stool softener she is able to have a soft brown BM. Denies any blood or mucus noted. Patient denies any rectal bleeding and reports that she has been evaluated with [facility] in the past. Discussed possible need for EGD. Patient verbalizes agreement and understanding. Gerd Patient reports history of gastric esophageal reflux disease. Reports she takes pantoprazole 40 mg p.o. twice daily but will occasionally experience epigastric pain with burning sensation that radiates up into her throat. Anemia Hemoglobin 9.0 hematocrit 27.3. (05/19/18) hemoglobin 11.6 hematocrit 34.0. Patient denies any noted bleeding. Denies blood noted in emesis. Stool Hemoccult negative at bedside. Intractable nausea vomiting Patient reporting intermittent nausea. States she was able to tolerate breakfast this a.m. without nausea or vomiting. Diverticulitis Patient has history of diverticulitis. Denies any fever or chills, denies lower abdominal pain. 05/19/18 CT of abdomen and pelvis revealed the following-- > . Numerous colonic diverticula are again seen. Multiple nonspecific stranding opacity is seen in the abdominal fat adjacent to the colon but no definitive acute diverticulitis. Diffuse dilatation of the common duct again seen, measuring 2 cm in diameter, unchanged. 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 Slight increase in size when compared to the prior study of February 2017. Patient afebrile with T-max noted 100 F on admission. 05/23/2018 Post gastric emptying study. Patient reports less abdominal discomfort and denies nausea and vomiting states tolerating liquid diet well. Gastric emptying study findings reveal--. Moderately delayed gastric emptying with T1 half greater than 90 minutes. No response to Reglan. Plan -Full liquid diet as tolerated -Bowel regimen -Continue Reglan -Continue PPI -Zofran as needed nausea -Analgesia and IV hydration as per attending -Monitor for bleeding -Monitor labs -Supportive care -Further recommendations to follow based on patient's status and findings This patient has been seen by myself and and this note is written on her behalf - Attending Attestation Dr. Valdovinos <Sharla Valle - Last Filed: 05/23/18 18:27> (1) H/O gastroesophageal reflux (GERD) Status: Chronic Code(s): Z87.19 - Personal history of other diseases of the digestive system (2) Anemia Status: Chronic Code(s): D64.9 - Anemia, unspecified (3) Intractable nausea and vomiting Status: Acute Code(s): R11.2 - Nausea with vomiting, unspecified (4) Abdominal pain Status: Acute Code(s): R10.9 - Unspecified abdominal pain (5) Diverticula of intestine Status: Acute Code(s): K57.30 - Diverticulosis of large intestine without perforation or abscess without bleeding - Attending Attestation seen, examined agree with above consider bethanechol 10 mg po tid if not better 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
[2018-05-24] MEDS: Ciprofloxacin 400 MG/200 ML 400 MG/200 ML PIGGYBACK IV.SIG SCH ×2 (01:06→13:08)
[2018-05-24] MEDS: Sucralfate Liq 1 GM/10 ML UDC PO SCH ×3 (01:06→16:02)
[2018-05-24] MEDS: Sod Chloride 0.9% Inj 1,000 ML IV.CONT SCH (05:59)
[2018-05-24] MEDS: Levothyroxine 100 MCG Tablet PO SCH (05:59)
[2018-05-24 08:12] LABS: Alanine Aminotransferase 38 U/L (10-53)
[2018-05-24 08:15] LABS: Alkaline Phosphatase 139 U/L (45-117); Total Protein 7.3 g/dL (6.4-8.2)
[2018-05-24 08:17] VITALS: PULSE 65; RESP 18
[2018-05-24 08:19] LABS: Albumin 2.6 g/dL (3.4-5.0); Anion Gap 6 meq/L (5-15); Aspartate Aminotransferase 33 U/L (15-37); Blood Urea Nitrogen 7 mg/dL (7-18); Calcium 8.7 mg/dL (8.5-10.1); Carbon Dioxide 31.1 meq/L (21.0-32.0); Chloride 104 meq/L (98-107); Glomerular Filtration Rate 60 mL/min (>89); Glucose,Random 69 mg/dL (74-106); Sodium 141 meq/L (136-145)
[2018-05-24 08:22] LABS: Potassium 3.8 meq/L (3.5-5.1)
[2018-05-24] MEDS: Senna/Docusate Sodium 8.6/50 MG Tablet PO SCH (09:30)
[2018-05-24] MEDS: Metoclopramide 10 MG Tablet PO SCH ×2 (09:31→13:08)
[2018-05-24] MEDS: Gabapentin 300 MG Capsule PO SCH ×2 (09:31→13:09)
[2018-05-24] MEDS: Heparin - SQ 10,000 UNITS/ML Vial SQ SCH (09:31)
[2018-05-24] MEDS: Verapamil SR 240 MG Tablet PO SCH (09:31)
[2018-05-24] MEDS: Divalproex 250 MG DR Tablet PO SCH (09:31)
--- NOTE | 2018-05-24 10:38 | P.DCO ---
- Diagnosis (1) Intractable nausea and vomiting Status: Acute - Physical Therapy Order: Evaluate and treat - Home Health Nursing Order: Medical education, Nursing assessment with vital signs - Case Management Consult Yes - Certification I have seen patient Dorys Levine on 05/24/18. My clinical findings support the need for the requested home health care services because: advanced age, unsteady uses walker Deconditioned with increased weakness, Need for psychosocial assistance I certify that my clinical findings support that this patient is homebound because: Unsteady gait/balance, Need for psychosocial assistance, Unable to use public transportation
--- NOTE | 2018-05-24 10:50 | P.PN ---
Subjective Interval history: Follow-up for epigastric pain. Patient seen and examined, was able to eat breakfast this morning, no nausea. Indicates she feels much better. Underwent GES, found with gastroparesis. Denies any chest pain, no shortness of breath, no nausea, no vomiting, no diarrhea. Anxious to go home. Physical Exam Vital signs: Vital Signs 05/23/18 12:00 05/23/18 16:00 05/23/18 20:00 Temperature 97.8 F 98.3 F 97.5 F L Pulse Rate 67 69 76 Respiratory Rate 18 18 16 Blood Pressure 155/70 H 150/84 H 190/91 H Pulse Oximetry 95 97 97 05/23/18 23:46 05/24/18 08:00 Temperature 97.0 F L 97.4 F L Pulse Rate 69 65 Respiratory Rate 18 Blood Pressure 124/67 137/63 Pulse Oximetry 97 94 L Intake & Output 05/23/18 05/24/18 05/24/18 18:59 06:59 18:59 Intake Total 2200 / 2200 1600 / 1600 Balance 2200 / 2200 1600 / 1600 Weight 95.1 kg Intake: IV 2200 / 2200 1200 / 1200 NS Inj 1,000 ML @ 100 mls/hr IV 2000 / 2000 1000 / 1000 .CONT .Q10H [facility] Rx#:[id number] Cipro 400 MG/200 ML Inj 400 mg 200 / 200 200 / 200 In 200 ml @ 200 mls/hr IV.SIG Q12H [facility] Rx#:[id number] Oral 400 / 400 Other: # Voids 3 Date of Last Bowel Movement 05/22/18 05/23/18 Narrative: GENERAL: Well-nourished, well-developed pleasant elderly AA female patient in [facility]. SKIN: Warm and dry. No rash. HEENT: Normocephalic. Atraumatic. Pupils equal and round. Mucous membranes pink and moist. CARDIOVASCULAR: Regular rate and rhythm. No murmur appreciated. RESPIRATORY: No accessory muscle use. Clear to auscultation. Breath sounds equal bilaterally. GASTROINTESTINAL: Abdomen soft, nondistended, nontender. Normoactive bowel sounds x4. MUSCULOSKELETAL: No obvious deformities. Extremities without clubbing, cyanosis , or edema. NEUROLOGICAL: Awake and alert. No obvious cranial nerve deficits. Motor grossly within normal limits. Moving all extremities spontaneously. Normal speech. PSYCHIATRIC: Appropriate mood and affect; insight and judgment normal. Results - Labs CBC & Chem 7: 05/22/18 06:40 05/24/18 05:00 Laboratory Results - last 24 hr 05/24/18 05:00 Sodium 141 Potassium 3.8 Chloride 104 Carbon Dioxide 31.1 Anion Gap 6 BUN 7 Creatinine 1.06 H Estimated GFR 60 L Random Glucose 69 L Calcium 8.7 Total Bilirubin 0.3 AST 33 ALT 38 Alkaline Phosphatase 139 H Total Protein 7.3 Albumin 2.6 L - Imaging Impressions Gastric Emptying Nuclear Medicine 05/23/18 00:00 CONCLUSION: 1. Moderately delayed gastric emptying with T1 half greater than 90 minutes. No response to Reglan. - Procedures 05/22/18EGD by Dr. Valdovinos: IMPRESSIONS: 1. Gastritis antrum, body-biopsy duodenum normal-biopsy esophagitis distal esophagus-biopsy 2. Retroflexed views revealed a hiatal hernia RECOMMENDATIONS: 1. Await biopsy results. Biopsy results will not be ready for 7-10 days. If you don't hear from us in two weeks, call our office for biopsy results. 2. Anti-reflux regimen 3. Continue PPI 4. Trial of liquid Carafate , Reglan EUS op gastric emptying study if not better full liquid diet Assessment and Plan - Assessment (1) Intractable nausea and vomiting Code(s): R11.2 - Nausea with vomiting, unspecified Status: Acute (2) Physical deconditioning Code(s): R53.81 - Other malaise Status: Acute - Plan 82 year old female with CKD, HTN, HLD, hypothyroidism, diverticulosis, and GERD admitted overnight for evaluation of abdominal pain, nausea, and vomiting. Epigastric Pain with Intractable nausea and vomiting: currently Vomiting resolved but pt still nauseous, decreased PO intake, and complaining of epigastric/RUQ "sickness" - CT A/P on admission showing numerous colonic diverticula with some surrounding fat stranding but no definitive acute diverticulitis. There was also diffuse dilation of the CBD unchanged from prior study as well as an 11 cm midline pelvic mass displacing the bladder that slightly increased in size when compared to prior study in 2017 - U/A negative - off IVF, tolerating PO well - Antiemetics - Consult GI since patient's symptoms are still persisting, LFTs going up slightly, Hb going slightly down, and patient with CBD dilation - MRCP 05/22 showed Moderate biliary ductal dilatation appears grossly stable. - EGD 05/22 showed gastritis/esophagitis/hiatal hernia, GI recommended PPI, trial of Carafate and Reglan -Advance diet as tolerated. -GES 05/23-- Moderately delayed gastric emptying with T1 half greater than 90 minutes. No response to Reglan. -? Urecholine, will ask GI -tolerating diet well, no n/v. Possible early diverticulitis: Patient does not have lower abdominal tenderness , diarrhea, or leukocytosis however on CT A/P there was possible early findings of diverticulitis and she had been empirically started on Flagyl and Cipro - Will continue Cipro for now Flagyl was discontinued since LFTs were rising and patient complaining of headache - Consulting GI as above - Hemoccult negative Normocytic Anemia: Hb went from 11.6 to 9.0 in less than 48 hours - Bedside Hemoccult negative - No obvious bleeding - Repeat CBC shows improvement with Hgb 10.4 today, suspect likely dilutional Leukopenia: WBC dropped from 7.1 to 3.6 which could partly be dilutional from fluids but could also be a side effect of the Flagyl which has been stopped - Repeat CBC improved with WBC 5.8K - Afebrile CKD, stage II-III: Creatinine 1.31 on admission, unchanged from March 2018 - Improved to 1.04 s/p IV hydration - Monitor I/O - Avoid nephrotoxic agents - stable, dc IVF HTN/HLD: BPs stable - Continue home metoprolol, verapamil, statin - Clonidine PRN - Continue to monitor Hypothyroidism: chronic - Continue home Levothyroxine GERD: chronic - Continue home PPI Headache - Likely secondary to nausea/vomiting and decreased PO intake but Flagyl could have also been contributing - CT head with no acute findings - Pain control - IV fluids - improving Pelvic mass - Correction from prior note as today patient notes this is chronic and has been worked up as a benign mass near or on her bladder - Unlikely to be the cause of her symptoms - Follow up as outpatient DVT prophylaxis: heparin sq Labs reviewed, improving tolerating diet well CM for dc planning, arrange C PT eval today poss dc today when GI clears. Code Status: Full code Discussed Condition With: RN, pt, CM Discharge Planning: DC today when ok by GI
[2018-05-24 12:04] VITALS: BP 149/68; TEMP 97.2; O2SAT 98
--- NOTE | 2018-05-24 13:42 | P.PNGI ---
Subjective Interval history: Patient is sitting up at bedside eating lunch meal. States tolerating full liquid diet well. Reports no feelings of abdominal discomfort, denies nausea vomiting. Awaiting discharge <Sharla Valle - Last Filed: 05/24/18 13:36> Physical Exam Vital signs: Vital Signs 05/23/18 16:00 05/23/18 20:00 05/23/18 23:46 Temperature 98.3 F 97.5 F L 97.0 F L Pulse Rate 69 76 69 Respiratory Rate 18 16 17 Blood Pressure 150/84 H 190/91 H 124/67 Pulse Oximetry 97 97 97 05/24/18 08:00 05/24/18 12:00 Temperature 97.4 F L 97.2 F L Pulse Rate 65 65 Respiratory Rate 18 18 Blood Pressure 137/63 149/68 H Pulse Oximetry 94 L 98 Intake & Output 05/23/18 05/24/18 05/24/18 18:59 06:59 18:59 Intake Total 2200 / 2200 1600 / 1600 Balance 2200 / 2200 1600 / 1600 Weight 95.1 kg Intake: IV 2200 / 2200 1200 / 1200 NS Inj 1,000 ML @ 100 mls/hr IV 2000 / 2000 1000 / 1000 .CONT .Q10H [facility] Rx#:[id number] Cipro 400 MG/200 ML Inj 400 mg 200 / 200 200 / 200 In 200 ml @ 200 mls/hr IV.SIG Q12H [facility] Rx#:[id number] Oral 400 / 400 Other: # Voids 3 Date of Last Bowel Movement 05/22/18 05/23/18 05/22/18 - Constitutional no acute distress - Routine HEENT Exam Head: Present: normocephalic - Routine Respiratory Exam Present: CTA bilaterally. Absent: accessory muscle use - Routine Abdominal Exam Present: soft, normoactive bowel sounds. Absent: tenderness, guarding, firm - Routine Skin Exam Present: dry, warm - Routine Psychiatric Exam Present: normal affect, cooperative <Sharla Valle - Last Filed: 05/24/18 13:36> Vital signs: Vital Signs 05/23/18 16:00 05/23/18 20:00 05/23/18 23:46 Temperature 98.3 F 97.5 F L 97.0 F L Pulse Rate 69 76 69 Respiratory Rate 18 16 17 Blood Pressure 150/84 H 190/91 H 124/67 Pulse Oximetry 97 97 97 05/24/18 08:00 05/24/18 12:00 Temperature 97.4 F L 97.2 F L Pulse Rate 65 65 Respiratory Rate 18 18 Blood Pressure 137/63 149/68 H Pulse Oximetry 94 L 98 Intake & Output 05/23/18 05/24/18 05/24/18 18:59 06:59 18:59 Intake Total 2200 / 2200 1600 / 1600 200 / 200 Balance 2200 / 2200 1600 / 1600 200 / 200 Weight 95.1 kg Intake: IV 2200 / 2200 1200 / 1200 200 / 200 NS Inj 1,000 ML @ 100 mls/hr IV 2000 / 2000 1000 / 1000 .CONT .Q10H [facility] Rx#:[id number] Cipro 400 MG/200 ML Inj 400 mg 200 / 200 200 / 200 200 / 200 In 200 ml @ 200 mls/hr IV.SIG Q12H [facility] Rx#:[id number] Oral 400 / 400 Other: # Voids 3 Date of Last Bowel Movement 05/22/18 05/23/18 05/22/18 <Lu Valdovinos - Last Filed: 05/24/18 15:37> Results - Labs CBC & Chem 7: 05/22/18 06:40 05/24/18 05:00 Laboratory Results - last 24 hr 05/24/18 05:00 Sodium 141 Potassium 3.8 Chloride 104 Carbon Dioxide 31.1 Anion Gap 6 BUN 7 Creatinine 1.06 H Estimated GFR 60 L Random Glucose 69 L Calcium 8.7 Total Bilirubin 0.3 AST 33 ALT 38 Alkaline Phosphatase 139 H Total Protein 7.3 Albumin 2.6 L - Procedures 05/22/18EGD by Dr. Valdovinos: IMPRESSIONS: 1. Gastritis antrum, body-biopsy duodenum normal-biopsy esophagitis distal esophagus-biopsy 2. Retroflexed views revealed a hiatal hernia RECOMMENDATIONS: 1. Await biopsy results. Biopsy results will not be ready for 7-10 days. If you don't hear from us in two weeks, call our office for biopsy results. 2. Anti-reflux regimen 3. Continue PPI 4. Trial of liquid Carafate , Reglan EUS op gastric emptying study if not better full liquid diet <Sharla Valle - Last Filed: 05/24/18 13:36> - Labs CBC & Chem 7: 10/16/18 06:40 05/24/18 05:00 Laboratory Results - last 24 hr 05/24/18 05:00 Sodium 141 Potassium 3.8 Chloride 104 Carbon Dioxide 31.1 Anion Gap 6 BUN 7 Creatinine 1.06 H Estimated GFR 60 L Random Glucose 69 L Calcium 8.7 Total Bilirubin 0.3 AST 33 ALT 38 Alkaline Phosphatase 139 H Total Protein 7.3 Albumin 2.6 L <Lu Valdovinos - Last Filed: 05/24/18 15:37> Assessment and Plan (1) H/O gastroesophageal reflux (GERD) Status: Chronic Code(s): Z87.19 - Personal history of other diseases of the digestive system (2) Anemia Status: Chronic Code(s): D64.9 - Anemia, unspecified (3) Intractable nausea and vomiting Status: Acute Code(s): R11.2 - Nausea with vomiting, unspecified (4) Abdominal pain Status: Acute Code(s): R10.9 - Unspecified abdominal pain (5) Diverticula of intestine Status: Acute Code(s): K57.30 - Diverticulosis of large intestine without perforation or abscess without bleeding - Plan Ms. Levine is an 82-year-old female patient with a past medical history of hypertension, hyperlipidemia, hypothyroidism, neuropathy , chronic anemia and GERD. Past surgical history includes hysterectomy and cholecystectomy. Our practice has been consulted to evaluate patient for history of diverticulosis with prior GI bleed, admitted to the hospital for intractable nausea and vomiting. CT showed fat stranding around diverticula and she has been empirically treated for diverticulitis. Patient's discomfort is epigastric and radiates to both right and left upper quadrants with 2 cm common bile duct dilation noted on CT. Patient is reporting early satiety, epigastric discomfort and nausea despite 2 days of IV antibiotics, IV fluids and antiemetics. Hemoglobin has gone from 11.6-9.0 with negative stool Hemoccult. Patient presented to the emergency room with complaint of epigastric pain after eating onset 2 days ago she describes pain as sharp and burning, states that it is intermittent and rates same at 6 out of 10 at this time. Patient states that the pain radiates to both left and right upper quadrants of abdomen. She is unable to solidify any alleviating or aggravating factors. She denies use of aspirin or NSAIDs. Denies smoking or use of EtOH. Denies any known family history for gastrointestinal diseases/disorders. States her last colonoscopy with EGD was done 8 months ago and per her recollection she was diagnosed with gastritis. Patient states she vomited 4-5 times prior to being admitted to the hospital 2 days ago. She describes the emesis as being yellow and better tasting with no noted blood. Patient denies any difficulty swallowing, reports heartburn 1-2 times weekly. Currently taking pantoprazole 40 mg p.o. twice daily. Patient with known history of diverticulitis and states her eldest daughter has history of same. Patient states she is normally constipated and moves her bowels every 3-4 days, hardened brown stool. States when she takes stool softener she is able to have a soft brown BM. Denies any blood or mucus noted. Patient denies any rectal bleeding and reports that she has been evaluated with [facility] in the past. Discussed possible need for EGD. Patient verbalizes agreement and understanding. Gerd Patient reports history of gastric esophageal reflux disease. Reports she takes pantoprazole 40 mg p.o. twice daily but will occasionally experience epigastric pain with burning sensation that radiates up into her throat. Anemia Hemoglobin 9.0 hematocrit 27.3. (05/19/18) hemoglobin 11.6 hematocrit 34.0. Patient denies any noted bleeding. Denies blood noted in emesis. Stool Hemoccult negative at bedside. Intractable nausea vomiting Patient reporting intermittent nausea. States she was able to tolerate breakfast this a.m. without nausea or vomiting. Diverticulitis Patient has history of diverticulitis. Denies any fever or chills, denies lower abdominal pain. 05/19/18 CT of abdomen and pelvis revealed the following-- > . Numerous colonic diverticula are again seen. Multiple nonspecific stranding opacity is seen in the abdominal fat adjacent to the colon but no definitive acute diverticulitis. Diffuse dilatation of the common duct again seen, measuring 2 cm in diameter, unchanged. 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 Slight increase in size when compared to the prior study of February 2017. Patient afebrile with T-max noted 100 F on admission. 05/23/2018 Post gastric emptying study. Patient reports less abdominal discomfort and denies nausea and vomiting states tolerating liquid diet well. Gastric emptying study findings reveal--. Moderately delayed gastric emptying with T1 half greater than 90 minutes. No response to Reglan. 05/24/2018 Patient sitting up at bedside. States tolerating full liquid diet well. Denies any nausea or vomiting, states Reglan is working. States she no longer feels as though food is "stuck in stomach". Reporting one soft bowel movement this morning. Awaiting discharge home today, patient advised to follow-up with GI, to advance diet to soft foods as tolerated. Plan -Soft diet at home as tolerated -Continue Reglan -PPI -Bowel regimen -Follow-up with GI post discharge-biopsy results pending -Follow-up with [facility] This patient has been seen by myself and and this note is written on her behalf - Attending Attestation Dr. Valdovinos <Sharla Valle - Last Filed: 05/24/18 13:36> (1) H/O gastroesophageal reflux (GERD) Status: Chronic Code(s): Z87.19 - Personal history of other diseases of the digestive system (2) Anemia Status: Chronic Code(s): D64.9 - Anemia, unspecified (3) Intractable nausea and vomiting Status: Acute Code(s): R11.2 - Nausea with vomiting, unspecified (4) Abdominal pain Status: Acute Code(s): R10.9 - Unspecified abdominal pain (5) Diverticula of intestine Status: Acute Code(s): K57.30 - Diverticulosis of large intestine without perforation or abscess without bleeding - Attending Attestation seen, examined agree with above ok to dc home form gi point eus op to further eval dilated pancreatic duct and cbd fu court administrator op gi will sign off <Lu Valdovinos - Last Filed: 05/24/18 15:37> <Sharla Valle - Last Filed: 05/24/18 13:36> (2) Anemia Qualifiers: Anemia type: unspecified type Qualified Code(s): D64.9 - Anemia, unspecified <Lu Valdovinos - Last Filed: 05/24/18 15:37> (2) Anemia Qualifiers: Anemia type: unspecified type Qualified Code(s): D64.9 - Anemia, unspecified
--- NOTE | 2018-05-24 16:32 | P.DS ---
Date of admission: 05/22/18 14:57 Primary care physician: UNKNOWN Attending physician on discharge: Gonzalo Rivers Anticipated date of discharge: 05/24/18 Brief History from admission: This is an 82-year-old female with a PMH of HTN, Hyperlipidemia, Hypothyroidism , Neuropathy and GERD who presented to ER with complaints of abdominal pain in addition to nausea and vomiting since yesterday morning. States she was able to eat a piece of chicken and cheese earlier today, however has had no PO intake since then due to multiple episodes of nausea/vomiting. Reports epigastric pain, sharp, intermittent, 8/10, non-radiating. On arrival, BP 137/ 81, HR 114, O2 sat 96% on RA, Temp 100. CBC essentially unremarkable. Creatinine 1.31 previously 1.318 318. Troponin negative. Lipase 153. Lactic Acid normal. UA negative. CXR with no acute findings. CT Abdomen/Pelvis with numerous colonic diverticula, multiple nonspecific stranding adjacent to the colon, no acute diverticulitis, diffuse dilatation of CBD unchanged, 11 cm pelvic mass displacing the bladder, slightly increased in size in comparison to February 2017. DS: Diagnosis - Discharge Diagnosis (1) Intractable nausea and vomiting Status: Acute (2) Physical deconditioning Status: Acute DS: Medications - Discharge Medications Prescriptions: ciprofloxacin HCl [Cipro] 500 mg PO Q12H 3 Days #6 tab DS: Summary Hospital Course: 82 year old female with CKD, HTN, HLD, hypothyroidism, diverticulosis, and GERD admitted overnight for evaluation of abdominal pain, nausea, and vomiting. Pt. was put on IVF, antiemetics, GI consulted. CT A/P on admission showing numerous colonic diverticula with some surrounding fat stranding but no definitive acute diverticulitis. There was also diffuse dilation of the CBD unchanged from prior study as well as an 11 cm midline pelvic mass displacing the bladder that slightly increased in size when compared to prior study in 2017. UA was negative. GI recommended, MRCP. MRCP showed Moderate biliary ductal dilatation appears grossly stable.Had EGD showed gastritis/esophagitis/hiatal hernia, GI recommended PPI, trial of Carafate and Reglan. Sx improved but persisted. GES done on 05/23--Moderately delayed gastric emptying with T1 half greater than 90 minutes. No response to Reglan. Diet advanced, tolerated well. Reglan was working. Was put on Cipro for poss early diverticulitis. Initially put on Flagyl but stopped as LFTs went up. Noted anemia, hemoccult negative. Poss dilutional. Noted leukopenic, this improved. GABRIELLE as well, which improved after IVF. Persistent headache, possibly secondary to nausea vomiting. CT of the head was negative. Pain improved. CT also showed pelvic mass, it appear that this was chronic and had been worked up as a benign mass. This was unlikely to be the cause of her symptoms. She was instructed to follow-up as outpatient with [facility]. She tolerated diet well, electrolytes stabilize as well as renal function. No nausea, no vomiting. Case management was consulted to assist with discharge planning. Patient was cleared for discharge by GI. - Time Spent with Patient Total time spent providing and/or coordinating discharge services:35 minute Greater than 30 minutes - Quality: VTE Deep Vein Thrombosis/Pulmonary Embolism Present on Admission: No Exam Vital signs: Vital Signs 05/23/18 16:00 05/23/18 20:00 05/23/18 23:46 Temperature 98.3 F 97.5 F L 97.0 F L Pulse Rate 69 76 69 Respiratory Rate 18 16 17 Blood Pressure 150/84 H 190/91 H 124/67 Pulse Oximetry 97 97 97 05/24/18 08:00 05/24/18 12:00 Temperature 97.4 F L 97.2 F L Pulse Rate 65 65 Respiratory Rate 18 18 Blood Pressure 137/63 149/68 H Pulse Oximetry 94 L 98 Intake & Output 05/23/18 05/24/18 05/24/18 18:59 06:59 18:59 Intake Total 2200 / 2200 1600 / 1600 200 / 200 Balance 2200 / 2200 1600 / 1600 200 / 200 Weight 95.1 kg Intake: IV 2200 / 2200 1200 / 1200 200 / 200 NS Inj 1,000 ML @ 100 mls/hr IV 2000 / 2000 1000 / 1000 .CONT .Q10H [facility] Rx#:[id number] Cipro 400 MG/200 ML Inj 400 mg 200 / 200 200 / 200 200 / 200 In 200 ml @ 200 mls/hr IV.SIG Q12H [facility] Rx#:[id number] Oral 400 / 400 Other: # Voids 3 Date of Last Bowel Movement 05/22/18 05/23/18 05/22/18 Results Procedures completed during hospitalization: MRCP 05/22 showed Moderate biliary ductal dilatation appears grossly stable. 05/22/18EGD by Dr. Valdovinos: IMPRESSIONS: 1. Gastritis antrum, body-biopsy duodenum normal-biopsy esophagitis distal esophagus-biopsy 2. Retroflexed views revealed a hiatal hernia RECOMMENDATIONS: 1. Await biopsy results. Biopsy results will not be ready for 7-10 days. If you don't hear from us in two weeks, call our office for biopsy results. 2. Anti-reflux regimen 3. Continue PPI 4. Trial of liquid Carafate , Reglan EUS op gastric emptying study if not better full liquid diet GES 05/23-- Moderately delayed gastric emptying with T1 half greater than 90 minutes. No response to Reglan. Pending studies at discharge: Pending at discharge 05/22/18 14:19 Surgical [PTH] Routine Labs on day of discharge: Labs from last 24 hours 05/24/18 05:00 Sodium 141 Potassium 3.8 Chloride 104 Carbon Dioxide 31.1 Anion Gap 6 BUN 7 Creatinine 1.06 H Estimated GFR 60 L Random Glucose 69 L Calcium 8.7 Total Bilirubin 0.3 AST 33 ALT 38 Alkaline Phosphatase 139 H Total Protein 7.3 Albumin 2.6 L - Impressions ITS Impressions Abdomen/Pelvis CT 05/19/18 19:49 CONCLUSION: 1. Numerous colonic diverticula are again seen. Multiple nonspecific stranding opacity is seen in the abdominal fat adjacent to the colon but no definitive acute diverticulitis. 2. Diffuse dilatation of the common duct again seen, measuring 2 cm in diameter , unchanged. 3. 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 Slight increase in size when compared to the prior study of February 2017. Chest X-Ray 05/19/18 19:49 CONCLUSION: No acute cardiopulmonary disease identified. Head CT 05/19/18 19:52 CONCLUSION: No acute intracranial findings. . Cholangiopancreatography MRI 05/22/18 07:01 CONCLUSION: Moderate biliary ductal dilatation appears grossly stable. Gastric Emptying Nuclear Medicine 05/23/18 00:00 CONCLUSION: 1. Moderately delayed gastric emptying with T1 half greater than 90 minutes. No response to Reglan. Discharge Plan - Discharge Disposition Patient Disposition: Disch W/Home Health Service - Discharge Condition Condition: Stable - Discharge Order Discharge Orders: Discharge Order (Routine); Ordered 05/24/18 Ordered By: Arlin Ann - Discharge Details Anticipated Discharge Date: 05/24/18 Discharge Comment: ok to dc - Physicians Team Primary Care Provider: UNKNOWN, Attending Provider: Gonzalo Rivers Other Providers: Lu Valdoivnos MD
== END 2018-05-24 16:22 | disposition home health service (06) ==
LOC: NEDA 19:39 → NEPE 19:39 → NEDA 05-20 08:00 → NEPGCP 05-20 08:03 → NEPFCDU 05-20 13:58 → N07 05-22 17:49
PROVIDERS: ADMIT Hospitalist; ATTEND Hospitalist
PROC: PANENDO (2018-05-22 11:31)